=== PATIENT | male | born 1980 | race Two or more races ===

== ENCOUNTER 2020-04-27 08:13 | Emergency (ER) | payer OTHER, SELFPAY ==
[2020-04-27 09:41] VITALS: BP 126/78; PULSE 75; RESP 16; TEMP 36.8; O2SAT 97; BMI 35.4
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
== END 2020-04-27 10:54 | disposition home or self-care (01) ==
PROVIDERS: Emergency Provider Emergency Medicine Emergency Medical Services; PCP Internal Medicine
DX: M25.512 Pain in left shoulder (principal); M25.532 Pain in left wrist; M79.10 Myalgia, unspecified site
CPT/HCPCS: 73000; 73030; 73110; 99283

== ENCOUNTER 2020-04-29 11:31 | Outpatient (REF) | payer OTHER, SELFPAY ==
--- NOTE | 2020-04-29 11:42 | XR_ITS ---
EXAMINATION: XR CERVICAL SPINE CLINICAL INFORMATION: Cervicalgia COMPARISON: None TECHNIQUE: 4 views of cervical spine FINDINGS: No abnormal prevertebral soft tissue swelling is seen. No acute cervical spine fracture is noted. Disc spaces are maintained. There is loss of normal cervical spine lordosis. XR/XR cervical spine 4V IMPRESSION: No significant abnormality of the cervical spine identified.
== END 2020-04-29 11:32 | disposition home or self-care (01) ==
LOC: HO.XRAY 11:31
PROVIDERS: PCP Internal Medicine; Visit Provider Internal Medicine
DX: M54.2 Cervicalgia (principal)
CPT/HCPCS: 72050

== ENCOUNTER 2020-06-15 07:52 | Outpatient (REF) | payer OTHER, SELFPAY ==
--- NOTE | 2020-06-15 08:20 | ECG_ITS ---
Test Reason : PHYSICAL Blood Pressure : / mmHG Vent. Rate : 074 BPM Atrial Rate : 074 BPM P-R Int : 128 ms QRS Dur : 084 ms QT Int : 386 ms P-R-T Axes : 006 020 024 degrees QTc Int : 428 ms Normal sinus rhythm Normal ECG When compared with ECG of 15-OCT-2018 07:59, No significant change was found Referred By: Chika Bingham Electronically Signed By:SHAMEKA THOMASON
[2020-06-15 08:48] LABS: MANUAL DIFF FLAG NO
[2020-06-15 08:50] LABS: Basophils Percent Auto 0.3 % (0-2); Eosinophils Absolute Auto 0.1 X10*3/uL (0.0-0.4); Eosinophils Percent Auto 1.8 % (0-4); Hematocrit 39.7 % (42-52); Hemoglobin 12.4 g/dl (14.0-18.0); Imm Gran Abs Auto 0.03 X10*3/uL (0.00-0.03); Imm Gran Pct Auto 0.4 % (0.0-0.4); Lymphocytes Absolute Auto 1.9 X10*3/uL (1.2-4.9); Lymphocytes Percent Auto 24.4 % (20-40); Mean Corpuscular HGB Conc 31.2 g/dl (31.0-36.0); Mean Corpuscular Hemoglobin 27.2 pg (27.0-33.0); Mean Corpuscular Volume 87.1 fL (80-98); Mean Platelet Volume 10.2 fL (9.4-12.4); Monocytes Absolute Auto 0.4 X10*3/uL (0.1-1.2); Monocytes Percent Auto 5.3 % (2-11); Neutrophils Absolute Auto 5.1 X10*3/uL (2.0-8.3); Neutrophils Percent Auto 67.8 % (45-73); Platelet Count 284 X10*3/uL (160-400); Red Blood Count 4.56 X10*6/uL (4.60-5.80); Red Cell Distribution Width 14.3 % (11.0-16.0); White Blood Count 7.6 X10*3/uL (4.8-10.8)
[2020-06-15 09:08] LABS: Estimated Average Glucose 120 mg/dL; Hemoglobin A1c % 5.8 %
[2020-06-15 09:20] LABS: Alanine Aminotransferase 19 U/L (0-40); Albumin Level 4.2 g/dL (3.5-5.0); Alkaline Phosphatase 111 U/L (39-117); Anion Gap 12 (12-20); Aspartate Amino Transferase 15 U/L (5-37); Bilirubin Total 0.5 mg/dL (0.0-1.0); Blood Urea Nitrogen 12 mg/dL (9-16); Calcium 8.9 mg/dL (8.4-10.2); Carbon Dioxide 29 mmol/L (22-29); Chloride 105 mmol/L (96-108); Estimated Glomerular Filt Rate > 60; Glucose Fasting 120 mg/dL (60-99); Potassium 4.4 mmol/L (3.3-5.1); Sodium 142 mmol/L (135-145); Total Protein 7.3 g/dL (6.5-8.0)
[2020-06-15 09:44] LABS: TSH reflex Free T4 1.23 uIU/mL (0.32-4.0)
== END 2020-06-15 07:53 | disposition home or self-care (01) ==
LOC: HO.LAB 07:52
PROVIDERS: PCP Internal Medicine; Visit Provider Nurse Practitioner Family
DX: Z00.00 Encounter for general adult medical examination without abnormal findings (principal)
CPT/HCPCS: 36415; 80053; 83036; 84443; 85025; 93005

== ENCOUNTER 2020-06-16 18:36 | Outpatient (REF) | payer OTHER, SELFPAY | END 2020-06-16 18:37 | disposition home or self-care (01) | LOC: HO.MRI 18:36 | PROVIDERS: Visit Provider Internal Medicine | DX: Z13.89 Encounter for screening for other disorder (principal) ==

== ENCOUNTER → 2020-06-29 08:49 | Outpatient (BNVA) | payer OTHER, SELFPAY | PROVIDERS: Visit Provider Orthopaedic Surgery | DX: S49.91XA Unspecified injury of right shoulder and upper arm, initial encounter (principal) | CPT/HCPCS: 99202 ==

== ENCOUNTER → 2020-06-30 10:16 | Outpatient (BNVA) | payer OTHER, SELFPAY | PROVIDERS: PCP Internal Medicine; Visit Provider Nurse Practitioner ==

== ENCOUNTER 2020-11-11 08:52 | Outpatient (REF) | payer OTHER, SELFPAY ==
--- NOTE | ~2020-11-11 | XR_ITS ---
EXAMINATION: XR CHEST CLINICAL INFORMATION: History of asthma COMPARISON: Chest x-ray on 03/30/2019 TECHNIQUE: 2 views of the chest were obtained. FINDINGS: The cardiac silhouette is normal. There is mild diffuse bronchial wall thickening. There are no areas of consolidation. There are no pleural effusions or pneumothoraces. The bones and soft tissues are unremarkable for the patient's age. XR/XR chest 2V IMPRESSION: Bronchial wall thickening may be infectious and/or inflammatory in etiology.
[2020-11-11 10:01] LABS: MANUAL DIFF FLAG NO
[2020-11-11 10:12] LABS: Basophils Percent Auto 0.3 % (0-2); Eosinophils Absolute Auto 0.1 X10*3/uL (0.0-0.4); Eosinophils Percent Auto 1.5 % (0-4); Hematocrit 40.2 % (42-52); Hemoglobin 12.6 g/dl (14.0-18.0); Imm Gran Abs Auto 0.01 X10*3/uL (0.00-0.03); Imm Gran Pct Auto 0.1 % (0.0-0.4); Lymphocytes Percent Auto 29.3 % (20-40); Mean Corpuscular HGB Conc 31.3 g/dl (31.0-36.0); Mean Corpuscular Volume 86.1 fL (80-98); Mean Platelet Volume 10.6 fL (9.4-12.4); Monocytes Absolute Auto 0.3 X10*3/uL (0.1-1.2); Monocytes Percent Auto 4.6 % (2-11); Neutrophils Absolute Auto 4.3 X10*3/uL (2.0-8.3); Neutrophils Percent Auto 64.2 % (45-73); Platelet Count 298 X10*3/uL (160-400); Red Blood Count 4.67 X10*6/uL (4.60-5.80); White Blood Count 6.8 X10*3/uL (4.8-10.8)
== END 2020-11-11 08:53 | disposition home or self-care (01) ==
LOC: HO.LAB 08:52
PROVIDERS: PCP Internal Medicine; Visit Provider Internal Medicine Pulmonary Disease
DX: J45.909 Unspecified asthma, uncomplicated (principal); Z91.09 Other allergy status, other than to drugs and biological substances
CPT/HCPCS: 36415; 71046; 82785; 85025; 86003; 99202

== ENCOUNTER 2020-11-18 08:55 | Outpatient (REF) | payer OTHER, SELFPAY ==
--- NOTE | 2020-11-18 17:35 | PFT_ITS ---
FLOWS: FEV1 64% of predicted at 2.62 L. FVC 67% of predicted at 3.40 L. FEV1 to FVC ratio of 0.77. No bronchodilator testing was performed as the patient used his albuterol approximately 2 hours prior to the test. LUNG VOLUMES: Total lung capacity 73% of predicted at 4.95 L. Residual volume 96% of predicted at 1.74 L. Slow vital capacity 64% of predicted at 3.20 L. Expiratory reserve volume 21% of predicted at 0.33 L. Diffusion capacity is normal. IMPRESSION: Moderate restrictive ventilatory defect. No bronchodilator testing was performed as patient has had albuterol 2 hours prior to the testing. Decreased expiratory reserve volume suggests extrathoracic restriction likely secondary to abdominal obesity. MD MIREYA Zimmerman/MODL / [id number]
== END 2020-11-18 08:56 | disposition home or self-care (01) ==
LOC: HO.RESP 08:55
PROVIDERS: PCP Internal Medicine; Visit Provider Internal Medicine Pulmonary Disease
DX: J45.909 Unspecified asthma, uncomplicated (principal)
CPT/HCPCS: 94010; 94727; 94729

== ENCOUNTER → 2020-12-17 15:30 | Outpatient (BNVA) | payer OTHER, SELFPAY | PROVIDERS: PCP Internal Medicine; Visit Provider Internal Medicine Pulmonary Disease | DX: J45.40 Moderate persistent asthma, uncomplicated (principal); I10 Essential (primary) hypertension; R73.02 Impaired glucose tolerance (oral); Z91.018 Allergy to other foods; Z91.09 Other allergy status, other than to drugs and biological substances | CPT/HCPCS: 99212 ==

== ENCOUNTER → 2021-01-27 08:59 | Outpatient (BNVA) | payer OTHER, SELFPAY | PROVIDERS: PCP Internal Medicine; Visit Provider Internal Medicine Pulmonary Disease | DX: J45.909 Unspecified asthma, uncomplicated (principal); Z91.09 Other allergy status, other than to drugs and biological substances | CPT/HCPCS: 99212 ==

== ENCOUNTER 2021-02-17 12:58 | Outpatient (REF) | payer OTHER, SELFPAY ==
--- NOTE | ~2021-02-17 | MM_ITS ---
EXAMINATION: MM DIAGNOSTIC DIGITAL BREAST TOMOSYNTHESIS, BILATERAL US DIAGNOSTIC ULTRASOUND BREAST, BILATERAL CLINICAL INFORMATION: Bilateral pain periareolar left 3:00, right 9:00. Male age 40. No prior breast imaging. COMPARISON: None. TECHNIQUE: Digital breast tomosynthesis is performed in both the craniocaudal and mediolateral oblique views along with computer-aided detection (CAD). Synthesized 2D images are generated from the tomosynthesis. Ultrasound of both breasts is targeted to the retroareolar and periareolar regions. Grayscale imaging and color Doppler are performed without and with harmonics. FINDINGS: There are scattered areas of fibroglandular density (ACR BI-RADS breast composition Category b). There is bilateral symmetric moderate retroareolar gynecomastia pattern. No underlying mass or architectural abnormality. No abnormal calcifications. The axilla are unremarkable. No skin thickening or retraction. No coarsening of the stromal markings. Ultrasound of each breast demonstrates no cystic or solid mass or architectural abnormality. No skin thickening or edema tracking in soft tissue planes. Results are discussed with the patient at time of visit using an rides supervisor. MM/MM tomosynthesis diagnostic BI IMPRESSION: Bilateral moderate gynecomastia. ASSESSMENT: BI-RADS 2: Benign RECOMMENDATION: Patient should be managed based on the clinical impression as needed. If clinically indicated, further evaluation may be considered with surgical consult. Decision to proceed with biopsy should be based on clinical grounds and degree of clinical concern.
== END 2021-02-17 12:59 | disposition home or self-care (01) ==
LOC: HO.MAMMO 12:58
PROVIDERS: Visit Provider Internal Medicine
DX: N64.4 Mastodynia (principal)
CPT/HCPCS: 76642; 77062; 77066

== ENCOUNTER → 2021-02-25 09:28 | Outpatient (BNVA) | payer OTHER, SELFPAY | PROVIDERS: PCP Internal Medicine; Referring Provider Internal Medicine; Visit Provider Nurse Practitioner | DX: K59.04 Chronic idiopathic constipation (principal); K21.9 Gastro-esophageal reflux disease without esophagitis; R11.0 Nausea | CPT/HCPCS: 99212 ==

== ENCOUNTER 2021-04-20 09:06 | Outpatient (REF) | payer OTHER, SELFPAY ==
[2021-04-20 10:35] LABS: COVID-19 Test Negative (Negative); IDNOW Serial# 16C4AD1C
== END 2021-04-20 09:07 | disposition home or self-care (01) ==
LOC: HO.LAB 09:06
PROVIDERS: Visit Provider Internal Medicine
DX: Z20.822 Contact with and (suspected) exposure to COVID-19 (principal)
CPT/HCPCS: 87635; C9803

== ENCOUNTER 2021-04-22 12:43 | Emergency (ER) | payer OTHER, SELFPAY ==
[2021-04-22 14:35] VITALS: BP 118/60; PULSE 80; RESP 18; TEMP 36.8; O2SAT 98; BMI 41.3
[2021-04-22 14:57] LABS: COVID-19 Test Negative (Negative); IDNOW Serial# 08D9AD1C
--- NOTE | 2021-04-22 15:36 | ED.URI ---
HPI - URI/Sore Throat General Chief Complaint: Upper Respiratory Symptoms Stated Complaint: covid symptoms/ exposed Time Seen by Provider: 04/22/21 15:32 Source: patient Mode of arrival: ambulatory Limitations: no limitations History of Present Illness HPI Narrative: Patient comes to the emergency room complaining of body aches and headache since yesterday the patient denies fever, no chills, no cough. Patient states that he has not taking any Tylenol or ibuprofen. The patient reports no fever chills Related Data Home Medications Medication Instructions Recorded Confirmed cetirizine 10 mg tablet 10 mg PO DAILY 04/29/20 02/25/21 hydrocortisone valerate 0.2 % appl TOPICAL BID 06/30/20 02/25/21 topical cream fluticasone 250 mcg-salmeterol 50 1 inh INHALATION BID 02/25/21 02/25/21 mcg/dose blistr powdr for inhalation (Advair Diskus) Previous Rx's Medication Instructions Recorded acetaminophen 500 mg tablet 500 mg PO Q6H PRN #20 tab 04/27/20 (Tylenol Extra Strength) lidocaine 5 % topical patch 1 patch TOPICAL DAILY PRN #30 ea 04/27/20 (Lidoderm) MDD remove after 12 hours albuterol sulfate 90 mcg/actuation 2 puff INHALATION Q6H PRN 30 Days 07/08/20 aerosol inhaler (ProAir HFA) #8.5 g ibuprofen 800 mg tablet 800 mg PO Q8H PRN #90 tab 11/14/20 fluticasone propionate 230 2 puff INHALATION BID 30 Days #1 ea 01/27/21 mcg-salmeterol 21 mcg/actuation HFA inhaler (Advair HFA) pantoprazole 40 mg tablet,delayed 40 mg PO BID 30 Days #60 tab 02/25/21 release (Protonix) doxepin 10 mg capsule 10 mg PO BEDTIME 90 Days #90 cap 03/29/21 ibuprofen 600 mg tablet 600 mg PO TID PRN #20 tab 04/22/21 Allergies Allergy/AdvReac Type Severity Reaction Status Date / Time almond [ALMOND] Allergy Mild RASH Verified 04/22/21 14:34 Review of Systems Review of Systems: Constitutional : No Weight loss, No Fever, No Chills, No Night Sweats, No Fatigue, complaining of generalized malaise ENT/Mouth : No Hearing loss, No Ear Pain, No Nasal Congestion, No Sinus Pain, No Hoarseness, complaining of mild sore throat, No Rhinorrhea, No Swallowing Difficulty Eyes: No Eye Pain, No Swelling, No Redness, No Foreign Body, No Discharge, No Vision Changes Cardiovascular : No Chest Pain, No SOB, No Dyspnea on Exertion, No Orthopnea, No Edema, No Palpitations Respiratory : No Cough, No Sputum, No Wheezing, No Smoke Exposure, No Dyspnea Gastrointestinal : No Nausea, No Vomiting, No Diarrhea, No Constipation, No abdominal Pain, No Hematochezia, No Melena Genitourinary : no irregular bleeding, No Dysuria, No Urinary Frequency, No Hematuria, No Urinary Incontinence, No Urgency, No Flank Pain, No Urinary Flow Changes, No Hesitancy Musculoskeletal : No joint pain, No Myalgias, No Joint Swelling Skin : No Skin Lesions, No rash Neuro : No Weakness, No Numbness, No Paresthesias, No Loss of Consciousness, No Dizziness, complaining of mild Headache Psych : No Anxiety/Panic, No Depression, No SI/HI/AH/VH, No Social Issues, Heme/Lymph: No Bruising, No Bleeding,No Lymphadenopathy Endocrine : No Polyuria, No Polydipsia, No Temperature Intolerance [facility] Past Medical History Medical History Asthma Breast pain, left Breast pain, right Essential hypertension Impaired glucose tolerance Left shoulder pain Mild asthma Moderate asthma Neck pain Surgical History History of inguinal hernia repair Family History Family History Father Diabetes Mother Hypothyroid Maternal Aunt Skin cancer Sister No problems noted. 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 Oriented X3. No acute distress. Well-appearing Eyes: Pupils equal, round and reactive to light. ENT: Pharynx normal. Neck: Normal inspection. Neck supple. No lymph nodes noted. No crepitus CVS: Normal heart rate and rhythm. Pulses normal. Normal S1 and S2 Respiratory: No respiratory distress. Breath sounds normal. No Wheezing. No rales Abdomen: Soft and nontender. No rigidity. No distention. good BS x4 Skin: Skin warm and dry. Normal skin color. Normal skin turgor. Extremities: No lower extremity edema. No Lacerations. No Rash Neuro: Oriented X 3. No motor deficit. No sensory deficit. Moving all extermities. No slurred speech. Course Course Course Narrative: Patient is well-appearing, no fever, oxygen saturation normal on room air. Patient tested negative for COVID-19 MDM - URI/Sore Throat Lab Data Labs: Lab Results 04/22/21 Range/Units 14:30 COVID-19 (ESTER) Negative (Negative) COVID-19 Clin Com See Note Discharge Plan Discharge Clinical Impression: Acute viral syndrome Patient Disposition: Home, Self-Care Instructions: Viral Syndrome (ED) Additional Instructions: Please follow-up with your primary care physician tomorrow. If you have any worsening or new symptoms, please return to the emergency room or call 911 Prescriptions: New ibuprofen 600 mg tablet 600 mg PO TID PRN (Reason: fever or pain) Qty: 20 RF: 0 No Action ibuprofen 800 mg tablet 800 mg PO Q8H PRN (Reason: for pain) Qty: 90 RF: 1 doxepin 10 mg capsule 10 mg PO BEDTIME 90 Days Qty: 90 RF: 1 acetaminophen [Tylenol Extra Strength] 500 mg tablet 500 mg PO Q6H PRN (Reason: pain or fever) Qty: 20 RF: 0 lidocaine [Lidoderm] 5 % adhesive patch,medicated 1 patch topical DAILY MDD remove after 12 hours PRN (Reason: pain) Qty: 30 RF: 0 cetirizine 10 mg tablet 10 mg PO DAILY RF: 0 albuterol sulfate [ProAir HFA] 90 mcg/actuation HFA aerosol inhaler 2 puff inhalation Q6H PRN (Reason: shortness of breath or wheezing) 30 Days Qty: 8.5 RF: 6 hydrocortisone valerate 0.2 % cream topical BID RF: 0 Advair HFA 230-21 mcg/actuation HFA aerosol inhaler 2 puff inhalation BID 30 Days Qty: 1 RF: 6 fluticasone propion-salmeterol [Advair Diskus] 250-50 mcg/dose blister with device 1 inh inhalation BID RF: 0 pantoprazole [Protonix] 40 mg tablet,delayed release (DR/EC) 40 mg PO BID 30 Days Qty: 60 RF: 6
== END 2021-04-22 15:48 | disposition home or self-care (01) ==
LOC: HO.ED 15:45
PROVIDERS: Emergency Provider Emergency Medicine; PCP Internal Medicine
DX: B34.9 Viral infection, unspecified (principal); Z20.822 Contact with and (suspected) exposure to COVID-19; R51.9 Headache, unspecified
CPT/HCPCS: 87635; 99283

== ENCOUNTER 2021-04-24 07:33 | Emergency (ER) | payer OTHER, SELFPAY ==
--- NOTE | ~2021-04-24 | XR_ITS ---
EXAMINATION: XR CHEST CLINICAL INFORMATION: Cough and shortness of breath. Positive Covid. COMPARISON: Chest x-ray 11/11/2020 TECHNIQUE: 2 views of the chest were obtained. FINDINGS: Cardiac silhouette is normal in size. The lungs are adequately aerated. Mild diffuse bronchial wall thickening is again noted. There is no gross lobar consolidation. No pleural effusion or pneumothorax. No acute osseous abnormality. XR/XR chest 2V IMPRESSION: Stable chronic bronchial wall thickening without lobar consolidation.
[2021-04-24 07:46] VITALS: BP 138/83; PULSE 100; RESP 18; TEMP 36.1; O2SAT 98; BMI 38.4
[2021-04-24 08:31] LABS: COVID-19 Test Positive (Negative)
--- NOTE | 2021-04-24 09:30 | ED_ITS ---
HPI - URI/Sore Throat General Chief Complaint: Upper Respiratory Symptoms Stated Complaint: Asthma/cough Time Seen by Provider: 04/24/21 09:14 Source: patient Mode of arrival: ambulatory Limitations: language barrier (Angolan-speaking) History of Present Illness HPI Narrative: 40-year-old male presenting to the ED with COVID like symptoms for the past 2 days worse today. Reports that his and son tested positive for the past few days for COVID and he has similar symptoms. He reports his symptoms are subjective fevers, chills, sweats, intermittent headache, nasal congestion/rhinorrhea, sore throat, dry cough and shortness of breath. He denies recent travel. He denies any measured fevers, dizziness, neck pain/stiffness, trouble swallowing or breathing, dyspnea on exertion, orthopnea, chest pain, palpitations, nausea/vomiting/diarrhea or constipation, abdominal pain, rashes, lower extremity edema or calf tenderness, dysuria, hematuria or any other symptoms complaints or concerns at this time. MD elicited complaint: fever, cough, sore throat, rhinorrhea and nasal congestion Onset (ago): day(s) (2) Consistency: constant and progressively worsening Severity: mild Able to tolerate fluids by mouth: Yes Exacerbating factors: swallowing and deep breaths Relieving factors: nothing Context: sick contacts ( and son tested positive a few days ago they have similar symptoms) Associated symptoms: fever, chills, myalgias, headache, rhinorrhea, nasal congestion, sore throat, cough and shortness of breath Treatments prior to arrival: none Related Data Home Medications Medication Instructions Recorded Confirmed cetirizine 10 mg tablet 10 mg PO DAILY 04/29/20 02/25/21 hydrocortisone valerate 0.2 % appl TOPICAL BID 06/30/20 02/25/21 topical cream fluticasone 250 mcg-salmeterol 50 1 inh INHALATION BID 02/25/21 02/25/21 mcg/dose blistr powdr for inhalation (Advair Diskus) Previous Rx's Medication Instructions Recorded acetaminophen 500 mg tablet 500 mg PO Q6H PRN #20 tab 04/27/20 (Tylenol Extra Strength) lidocaine 5 % topical patch 1 patch TOPICAL DAILY PRN #30 ea 04/27/20 (Lidoderm) MDD remove after 12 hours albuterol sulfate 90 mcg/actuation 2 puff INHALATION Q6H PRN 30 Days 07/08/20 aerosol inhaler (ProAir HFA) #8.5 g ibuprofen 800 mg tablet 800 mg PO Q8H PRN #90 tab 11/14/20 fluticasone propionate 230 2 puff INHALATION BID 30 Days #1 ea 01/27/21 mcg-salmeterol 21 mcg/actuation HFA inhaler (Advair HFA) pantoprazole 40 mg tablet,delayed 40 mg PO BID 30 Days #60 tab 02/25/21 release (Protonix) doxepin 10 mg capsule 10 mg PO BEDTIME 90 Days #90 cap 03/29/21 ibuprofen 600 mg tablet 600 mg PO TID PRN #20 tab 04/22/21 albuterol sulfate 90 mcg/actuation 1 inh INHALATION QID PRN #8.5 g 04/24/21 aerosol inhaler azithromycin 250 mg tablet See Rx Instructions .ROUTE 04/24/21 .COMPLEX #6 tab codeine 10 mg-guaifenesin 100 mg/5 5 ml PO Q6H PRN #120 ml 04/24/21 mL oral liquid (Guaifenesin AC) cyclobenzaprine 10 mg tablet 10 mg PO Q8H PRN #14 tab 04/24/21 prednisone 20 mg tablet 40 mg PO DAILY 5 Days #10 tab 04/24/21 Allergies Allergy/AdvReac Type Severity Reaction Status Date / Time almond [ALMOND] Allergy Mild RASH Verified 04/22/21 14:34 Review of Systems Review of Systems: Constitutional : Positive subjective fever/chills/fatigue/malaise/night sweats, No Weight loss ENT/Mouth : Positive sore throat/nasal congestion/rhinorrhea, No Hearing loss, No Ear Pain, No Sinus Pain, No Hoarseness, No Swallowing Difficulty Eyes: No Eye Pain, No Swelling, No Redness, No Foreign Body, No Discharge, No Vision Changes Cardiovascular : Positive shortness of breath, No Chest Pain, No Dyspnea on Exertion, No Orthopnea, No Edema, No Palpitations Respiratory : Positive cough, No Sputum, No Wheezing Gastrointestinal : No Nausea, No Vomiting, No Diarrhea, No Constipation, No abdominal Pain, No Hematochezia, No Melena Genitourinary : no irregular bleeding, No Dysuria, No Urinary Frequency, No Hematuria, No Urinary Incontinence, No Urgency, No Flank Pain, No Urinary Flow Changes, No Hesitancy Musculoskeletal : No joint pain, positive Myalgias, No Joint Swelling Skin : No Skin Lesions, No rash Neuro : No Weakness, No Numbness, No Paresthesias, No Loss of Consciousness, No Dizziness, No Headache Psych : No Anxiety/Panic, No Depression, No SI/HI/AH/VH, No Social Issues, Heme/Lymph: No Bruising, No Bleeding,No Lymphadenopathy Endocrine : No Polyuria, No Polydipsia, No Temperature Intolerance Yes all other systems are reviewed and are negative [facility] Past Medical History Attestation statement: The following information was validated with the patient. Medical History Asthma Breast pain, left Breast pain, right Essential hypertension Impaired glucose tolerance Left shoulder pain Mild asthma Moderate asthma Neck pain Surgical History History of inguinal hernia repair Family History Family History Father Diabetes Mother Hypothyroid Maternal Aunt Skin cancer Sister No problems noted. 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 Blood pressure normal. Heart rate normal. Respiration rate normal. Temperature normal. Oxygen saturation normal. Appearance: Alert. Oriented X3. No acute distress. Head: Normal external exam. Normocephalic. Atraumatic. Eyes: PERRLA. EOMI. Conjunctiva and sclera normal. Eyelids normal. ENT: EAC normal. TM's Normal. Pharynx normal. Uvula midline. Moist mucous membranes. No trismus noted. No drooling noted. No muffled voice noted. Neck: Normal inspection. Neck supple. FROM. No adenopathy. Thyroid Normal. No meningeal signs. No neck mass noted. CVS: Normal heart rate and rhythm. Heart sound normal. Pulses normal throughout. No murmurs/rales/gallops. Respiratory: No respiratory distress. Painless inspiration. Breath sounds normal. No wheezes/rales/rhonchi noted. Chest nontender. No accessory muscle usage noted or decreased air movement noted. Abdomen: Soft and nontender. Bowel sounds normal in all 4 quadrants. No distention noted. No organomegaly noted. No visible injury noted. Back: No CVA tenderness. Full range of motion noted. No rashes/lesion/induration/fluctuance or signs of infection noted. Skin: Skin warm and dry. Normal skin color. Normal skin turgor. No rashes/lesions/lacerations noted. Extremities: No lower extremity edema. No calf tenderness is noted. Extremities exhibit normal range of motion. Extremities nontender. Neuro: Oriented X 3. No motor deficit. No sensory deficit. Reflexes normal. Normal steady gait. No focal neuro deficits noted. Vascular: + radial pulses/+ 2 distal pedal pulses/+2 dorsalis pedis b/l. Normal cap refill. No cyanosis noted to upper extremity nails and lower extremity toes nails. Course Course Course Narrative: 40-year-old male presenting to the ED with COVID like symptoms for the past 2 days worse today. Reports that his and son tested positive for the past few days for COVID and he has similar symptoms. He reports his symptoms are subjective fevers, chills, sweats, intermittent headache, nasal congestion/rhinorrhea, sore throat, dry cough and shortness of breath. He denies recent travel. He denies any measured fevers, dizziness, neck pain/stiffness, trouble swallowing or breathing, dyspnea on exertion, orthopnea, chest pain, palpitations, nausea/vomiting/diarrhea or constipation, abdominal pain, rashes, lower extremity edema or calf tenderness, dysuria, hematuria or any other symptoms complaints or concerns at this time. Patient positive for COVID. On exam patient is alert oriented x3. Not in any acute distress. Lungs are clear to auscultation. CV RRR. Abdomen is soft and nontender. No lower extremity edema or calf tenderness is noted. Vital signs are stable within normal limits O2 saturation 98% on room air. Will obtain a chest x-ray is negative will DC home with symptomatic treatment instructions to self isolate per CDC guidelines and to return if any new or worsening symptoms to monitor his oxygen levels. Patient and at bedside understand agree this plan. MDM - URI/Sore Throat Medical Records Attestation: I reviewed the patient's medical records. Lab Data Attestation: I reviewed the patient's lab results. Labs: Lab Results 04/24/21 Range/Units 08:05 COVID-19 (ESTER) Positive A (Negative) COVID-19 Clin Com See Note Imaging Data Chest x-ray: Attestation: I personally reviewed and interpreted this imaging study as follows: Radiologist's impression: FINDINGS: Cardiac silhouette is normal in size. The lungs are adequately aerated. Mild diffuse bronchial wall thickening is again noted. There is no gross lobar consolidation. No pleural effusion or pneumothorax. No acute osseous abnormality. XR/XR chest 2V IMPRESSION: Stable chronic bronchial wall thickening without lobar consolidation. Discharge Plan Discharge Clinical Impression: COVID-19 Patient Disposition: Home, Self-Care Instructions: COVID-19 (Coronavirus Disease 2019) (ED) Additional Instructions: Please follow CDC guidelines for quarantine restrictions Prescriptions: New albuterol sulfate 90 mcg/actuation HFA aerosol inhaler 1 inh inhalation QID PRN (Reason: shortness of breath or wheezing) Qty: 8.5 RF: 0 cyclobenzaprine 10 mg tablet 10 mg PO Q8H PRN (Reason: Muscle spasm) Qty: 14 RF: 0 azithromycin 250 mg tablet See Rx Instructions .ROUTE .COMPLEX Qty: 6 RF: 0 codeine-guaifenesin [Guaifenesin AC] 10-100 mg/5 mL liquid 5 ml PO Q6H PRN (Reason: cold symptoms) Qty: 120 RF: 0 prednisone 20 mg tablet 40 mg PO DAILY 5 Days Qty: 10 RF: 0 No Action ibuprofen 800 mg tablet 800 mg PO Q8H PRN (Reason: for pain) Qty: 90 RF: 1 doxepin 10 mg capsule 10 mg PO BEDTIME 90 Days Qty: 90 RF: 1 acetaminophen [Tylenol Extra Strength] 500 mg tablet 500 mg PO Q6H PRN (Reason: pain or fever) Qty: 20 RF: 0 lidocaine [Lidoderm] 5 % adhesive patch,medicated 1 patch topical DAILY MDD remove after 12 hours PRN (Reason: pain) Qty: 30 RF: 0 ibuprofen 600 mg tablet 600 mg PO TID PRN (Reason: fever or pain) Qty: 20 RF: 0 cetirizine 10 mg tablet 10 mg PO DAILY RF: 0 albuterol sulfate [ProAir HFA] 90 mcg/actuation HFA aerosol inhaler 2 puff inhalation Q6H PRN (Reason: shortness of breath or wheezing) 30 Days Qty: 8.5 RF: 6 hydrocortisone valerate 0.2 % cream topical BID RF: 0 Advair HFA 230-21 mcg/actuation HFA aerosol inhaler 2 puff inhalation BID 30 Days Qty: 1 RF: 6 fluticasone propion-salmeterol [Advair Diskus] 250-50 mcg/dose blister with device 1 inh inhalation BID RF: 0 pantoprazole [Protonix] 40 mg tablet,delayed release (DR/EC) 40 mg PO BID 30 Days Qty: 60 RF: 6 Referrals: Shannon Rosario MD [Primary Care Provider] - 2 days Stand Alone Forms: Work/School Release Print Language: Angolan
[2021-04-24] MEDS: Albuterol Sulfate 90 MCG 8 GM INHALER 2 PUFF INHALE (10:22)
== END 2021-04-24 10:36 | disposition home or self-care (01) ==
PROVIDERS: Emergency Provider Internal Medicine; PCP Internal Medicine
DX: U07.1 COVID-19 (principal); J45.909 Unspecified asthma, uncomplicated; I10 Essential (primary) hypertension
CPT/HCPCS: 71046; 87635; 94640; 99283; 99284

== ENCOUNTER 2021-05-02 08:13 | Outpatient (REF) | payer OTHER, SELFPAY ==
[2021-05-02 11:30] LABS: Binax Now Covid-19 Ag Positive (Negative)
[2021-05-02 11:31] LABS: Binax Internal Control QC Valid
== END 2021-05-02 08:14 | disposition home or self-care (01) ==
LOC: HO.LAB 08:13
PROVIDERS: Visit Provider Internal Medicine
DX: Z20.822 Contact with and (suspected) exposure to COVID-19 (principal)
CPT/HCPCS: C9803

== ENCOUNTER 2021-05-05 07:48 | Outpatient (REF) | payer OTHER, SELFPAY ==
[2021-05-05 08:12] LABS: COVID-19 Test Negative (Negative)
== END 2021-05-05 07:49 | disposition home or self-care (01) ==
LOC: HO.LAB 07:48
PROVIDERS: Visit Provider Internal Medicine
DX: Z20.822 Contact with and (suspected) exposure to COVID-19 (principal)
CPT/HCPCS: 87635; C9803

== ENCOUNTER → 2021-07-22 09:37 | Outpatient (BNVA) | payer OTHER, SELFPAY | PROVIDERS: PCP Internal Medicine; Visit Provider Internal Medicine Pulmonary Disease | DX: J45.909 Unspecified asthma, uncomplicated (principal); Z91.09 Other allergy status, other than to drugs and biological substances | CPT/HCPCS: 99212 ==

== ENCOUNTER 2021-08-11 09:41 | Outpatient (REF) | payer OTHER, SELFPAY ==
--- NOTE | 2021-08-11 09:44 | EMG_ITS ---
Bilateral median and ulnar motor and sensory studies were performed, bilateral radial sensory studies were performed and paraspinal muscles were tested with a needle. IMPRESSION: 1. [id number] bilateral median neuropathy across carpal tunnel. 2. Left Ron-Vince anastomosis, a normal variant. MD HARINDER Amin/LATHAL / [id number]
== END 2021-08-11 09:42 | disposition home or self-care (01) ==
LOC: HO.NEURO 09:41
PROVIDERS: PCP Internal Medicine; Visit Provider Internal Medicine
DX: R20.0 Anesthesia of skin (principal)
CPT/HCPCS: 95886; 95909; 95911

== ENCOUNTER 2021-08-29 14:59 | Outpatient (REF) | payer OTHER, SELFPAY ==
[2021-08-29 15:58] LABS: Influenza A PCR POSITIVE (Negative); Influenza B PCR NEGATIVE (Negative); Resp Syncy Virus RNA Qual PCR NEGATIVE (Negative); SARS COV2 PCR INHOUSE NEGATIVE (Negative)
== END 2021-08-29 15:00 | disposition home or self-care (01) ==
LOC: HO.LAB 14:59
PROVIDERS: PCP Internal Medicine; Visit Provider Nurse Practitioner Family
DX: R05.9 Cough, unspecified (principal); R09.89 Other specified symptoms and signs involving the circulatory and respiratory systems; R52 Pain, unspecified; Z20.822 Contact with and (suspected) exposure to COVID-19
CPT/HCPCS: 0241U

== ENCOUNTER 2021-10-11 06:23 | Outpatient (REF) | payer OTHER, SELFPAY ==
[2021-10-11 06:39] LABS: MANUAL DIFF FLAG NO
[2021-10-11 07:47] LABS: Basophils Percent Auto 0.3 % (0-2); Eosinophils Absolute Auto 0.1 X10*3/uL (0.0-0.4); Hematocrit 39.4 % (42.0-52.0); Hemoglobin 12.4 g/dl (14.0-18.0); Imm Gran Abs Auto 0.02 X10*3/uL (0.00-0.03); Imm Gran Pct Auto 0.2 % (0.0-0.4); Lymphocytes Absolute Auto 2.8 X10*3/uL (1.2-4.9); Lymphocytes Percent Auto 31.3 % (20-40); Mean Corpuscular HGB Conc 31.5 g/dl (31.0-36.0); Mean Corpuscular Volume 85.7 fL (80.0-98.0); Mean Platelet Volume 10.9 fL (9.4-12.4); Monocytes Absolute Auto 0.5 X10*3/uL (0.1-1.2); Neutrophils Absolute Auto 5.5 x10*3/uL (2.0-8.3); Neutrophils Percent Auto 61.2 % (45-73); Platelet Count 314 X10*3/uL (160-400); Red Cell Distribution Width 14.5 % (11.0-16.0)
[2021-10-11 08:41] LABS: Alanine Aminotransferase 24 U/L (0-40); Albumin Level 4.5 g/dL (3.5-5.0); Alkaline Phosphatase 112 U/L (39-117); Anion Gap 14 (12-20); Aspartate Amino Transferase 21 U/L (5-37); Bilirubin Total 0.4 mg/dL (0.0-1.0); Blood Urea Nitrogen 15 mg/dL (9-16); Calcium 9.4 mg/dL (8.4-10.2); Carbon Dioxide 26 mmol/L (22-29); Chloride 107 mmol/L (96-108); Cholesterol 144 mg/dL; Estimated Glomerular Filt Rate > 60; Glucose Fasting 95 mg/dL (60-99); HDL Cholesterol 49 mg/dL; LDL Cholesterol Calculated 81 mg/dl; Potassium 4.3 mmol/L (3.3-5.1); Sodium 143 mmol/L (135-145); Total Protein 7.9 g/dL (6.5-8.0); Triglycerides 72 mg/dL
[2021-10-16 13:42] LABS: Vitamin D 25-OH, D2 <4 ng/mL; Vitamin D 25-OH, D3 35 ng/mL; Vitamin D 25-OH, Total 35 ng/mL (30-100)
== END 2021-10-11 06:24 | disposition home or self-care (01) ==
LOC: HO.LAB 06:23
PROVIDERS: PCP Internal Medicine; Visit Provider Internal Medicine
DX: Z00.00 Encounter for general adult medical examination without abnormal findings (principal); E78.5 Hyperlipidemia, unspecified; D64.9 Anemia, unspecified; E55.9 Vitamin D deficiency, unspecified
CPT/HCPCS: 36415; 80053; 80061; 82306; 85025

== ENCOUNTER → 2022-01-20 09:58 | Outpatient (BNVA) | payer OTHER, SELFPAY | PROVIDERS: PCP Internal Medicine; Visit Provider Internal Medicine Pulmonary Disease | DX: J45.50 Severe persistent asthma, uncomplicated (principal); Z91.09 Other allergy status, other than to drugs and biological substances | CPT/HCPCS: 99212 ==

== ENCOUNTER → 2022-03-03 09:12 | Outpatient (BNVA) | payer OTHER, SELFPAY | PROVIDERS: PCP Internal Medicine; Referring Provider Internal Medicine; Visit Provider Nurse Practitioner | DX: K21.9 Gastro-esophageal reflux disease without esophagitis (principal); R11.0 Nausea | CPT/HCPCS: 99212 ==

== ENCOUNTER 2022-06-12 14:34 | Emergency (ER) | payer OTHER, SELFPAY ==
--- NOTE | ~2022-06-12 | XR_ITS ---
EXAMINATION: XR ANKLE, RIGHT CLINICAL INFORMATION: Fall pain COMPARISON: None TECHNIQUE: AP, lateral, and mortise views of the right ankle. FINDINGS: The bones and soft tissues are normal. No fracture. Alignment is anatomic. Joint spaces are maintained. No joint effusion. There is a small inferior calcaneal spur. XR/XR ankle RT min 3V IMPRESSION: No acute fracture or dislocation.
--- NOTE | ~2022-06-12 | XR_ITS ---
EXAMINATION: XR ANKLE, LEFT CLINICAL INFORMATION: Injury COMPARISON: None TECHNIQUE: AP, lateral, and mortise views of the left ankle. FINDINGS: The bones and soft tissues are normal. No fracture. Alignment is anatomic. Joint spaces are maintained. No joint effusion. XR/XR ankle LT min 3V IMPRESSION: No radiographic evidence of acute fracture.
[2022-06-12 14:46] VITALS: BP 133/53; PULSE 79; RESP 18; TEMP 36.9; O2SAT 97; BMI 39.5
--- NOTE | 2022-06-12 14:46 | ED_ITS ---
HPI - Extremity Injury (Lower) General Chief Complaint: Extremity Problem <DONNELL Salguero - Last Filed: 06/12/22 14:47> Stated Complaint: both feet inj at work <DONNELL Salguero - Last Filed: 06/12/22 14:47> Time Seen by Provider: 06/12/22 16:17 <DONNELL Salguero - Last Filed: 06/12/22 14:47> Source: patient and family ( at bedside) <DONNELL Dougherty Last Filed: 06/12/22 16:35> Mode of arrival: ambulatory <DONNELL Dougherty - Last Filed: 06/12/22 16:35> Limitations: language barrier (English-speaking) <DONNELL Dougherty Last Filed: 06/12/22 16:35> History of Present Illness HPI Narrative: 42-year-old male presenting to the ER with complaints of bilateral ankle pain and right foot pain near the heel since yesterday worse today. Reports that he had a twist injury to his left ankle tried to catch himself so he would not fall and tried to compensate with his right foot/ankle. He reports he did not actually fall. This occurred at work. He denies any paresthesias or any other symptoms complaints or concerns at this time. <DONNELL Dougherty - Last Filed: 06/12/22 16:35> MD complaint: ankle injury <DONNELL Dougherty - Last Filed: 06/12/22 16:35> Onset (ago): day(s) (Yesterday at work) <DONNELL Dougherty - Last Filed: 06/12/22 16:35> Injury: Bilateral: ankle <DONNELL Dougherty - Last Filed: 06/12/22 16:35> Type of Injury: other (Twist injury) <DONNELL Dougherty Last Filed: 06/12/22 16:35> Place: work <DONNELL Dougherty Last Filed: 06/12/22 16:35> Severity: mild <DONNELL Dougherty Last Filed: 06/12/22 16:35> Relieving factors: nothing <DONNELL Dougherty Last Filed: 06/12/22 16:35> Exacerbating factors: weight bearing, movement and palpation <DONNELL Dougherty - Last Filed: 06/12/22 16:35> Context: other (Twist injury near fall) <DONNELL Dougherty - Last Filed: 06/12/22 16:35> Associated symptoms: swelling and ambulatory <DONNELL Dougherty - Last Filed: 06/12/22 16:35> Other symptoms: none <DONNELL Dougherty - Last Filed: 06/12/22 16:35> Related Data Home Medications: Previous Rx's Medication Instructions Recorded ibuprofen 800 mg tablet 800 mg PO Q8H PRN for pain #90 tabs 11/14/20 albuterol sulfate 90 mcg/actuation 1 inh inhalation QID PRN shortness 04/24/21 aerosol inhaler of breath or wheezing #8.5 grams acetaminophen 500 mg tablet 500 - 1,000 mg PO Q6H PRN pain #30 08/29/21 tabs fluticasone propionate 230 2 puff inhalation BID 30 days #1 ea 10/03/21 mcg-salmeterol 21 mcg/actuation HFA inhaler (Advair HFA) cetirizine 10 mg tablet 10 mg PO DAILY 90 days #90 tabs 03/02/22 montelukast 10 mg tablet 10 mg PO BEDTIME 90 days #90 tabs 03/05/22 doxepin 10 mg capsule 10 mg PO BEDTIME 90 days #90 caps 04/30/22 hydrocortisone valerate 0.2 % 1 appl topical BID 2 weeks #45 04/30/22 topical cream grams pantoprazole 40 mg tablet,delayed 40 mg PO BID #180 tabs 05/16/22 release ibuprofen 800 mg tablet 800 mg PO Q8H PRN pain #14 tabs 06/12/22 <DONNELL Salguero - Last Filed: 06/12/22 14:47> Allergies/Adverse Reactions: Allergies Allergy/AdvReac Type Severity Reaction Status Date / Time almond [ALMOND] Allergy Mild RASH Verified 03/03/22 09:20 <DONNELL Slaguero - Last Filed: 06/12/22 14:47> Review of Systems Review of Systems: Constitutional : No Weight loss, No Fever, No Chills, No Night Sweats, No Fatigue, No Malaise ENT/Mouth : No Hearing loss, No Ear Pain, No Nasal Congestion, No Sinus Pain, No Hoarseness, No sore throat, No Rhinorrhea, No Swallowing Difficulty Eyes: No Eye Pain, No Swelling, No Redness, No Foreign Body, No Discharge, No Vision Changes Cardiovascular : No Chest Pain, No SOB, No Dyspnea on Exertion, No Orthopnea, No Edema, No Palpitations Respiratory : No Cough, No Sputum, No Wheezing, No Smoke Exposure, No Dyspnea Gastrointestinal : No Nausea, No Vomiting, No Diarrhea, No Constipation, No abdominal Pain, No Hematochezia, No Melena Genitourinary : no irregular bleeding, No Dysuria, No Urinary Frequency, No Hematuria, No Urinary Incontinence, No Urgency, No Flank Pain, No Urinary Flow Changes, No Hesitancy Musculoskeletal : + b/l ankle joint pain and right foot joint pain, No Myalgias, No Joint Swelling Skin : No Skin Lesions, No rash Neuro : No Weakness, No Numbness, No Paresthesias, No Loss of Consciousness, No Dizziness, No Headache Psych : No Anxiety/Panic, No Depression, No SI/HI/AH/VH, No Social Issues, Heme/Lymph: No Bruising, No Bleeding,No Lymphadenopathy Endocrine : No Polyuria, No Polydipsia, No Temperature Intolerance <DONNELL Dougherty - Last Filed: 06/12/22 16:35> Yes all other systems are reviewed and are negative <DONNELL Dougherty - Last Filed: 06/12/22 16:35> PMFSH Past Medical History Attestation statement: The following information was validated with the patient. <DONNELL Dougherty - Last Filed: 06/12/22 16:35> Source: old records reviewed, obtained from family and nursing notes reviewed <DONNELL Dougherty - Last Filed: 06/12/22 16:35> Medical History: Medical History Asthma Breast pain, left Breast pain, right Essential hypertension Impaired glucose tolerance Left shoulder pain Mild asthma Moderate asthma Neck pain Numbness of right hand Physical exam <DONNELL Salguero - Last Filed: 06/12/22 14:47> Surgical History: Surgical History History of inguinal hernia repair <DONNELL Salguero - Last Filed: 06/12/22 14:47> Family History Family History: Family History Father Diabetes Mother Hypothyroid Maternal Aunt Skin cancer Sister No problems noted. 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 Current occupational exposures/hazards: No Cognitive needs: No Hearing needs: No Vision needs: Yes <DONNELL Salguero - Last Filed: 06/12/22 14:47> Physical Exam Vital Signs: Vital Signs: Last Vital Signs Temp 98.5 F 06/12/22 14:46 Pulse 79 06/12/22 14:46 Resp 18 06/12/22 14:46 BP 133/53 L 06/12/22 14:46 Pulse Ox 97 06/12/22 14:46 O2 Del Method 06/12/22 14:46 BMI result Body Mass Index 39.5 <DONNELL Salguero - Last Filed: 06/12/22 14:47> Vital Signs: Last Vital Signs Temp 98.5 F 06/12/22 14:46 Pulse 79 06/12/22 14:46 Resp 18 06/12/22 14:46 BP 133/53 L 06/12/22 14:46 Pulse Ox 97 06/12/22 14:46 O2 Del Method 06/12/22 14:46 BMI result Body Mass Index 39.5 vital signs have been reviewed as normal and appeared to be correct. Blood pressure normal Heart rate normal. Respiration rate normal. Temperature normal. Oxygen saturation normal. <DONNELL Dougherty - Last Filed: 06/12/22 16:35> Appearance: Alert. Oriented X3. No acute distress. Head: Normal external exam. Normocephalic. Atraumatic. Eyes: PERRLA. EOMI. Conjunctiva and sclera normal. Eyelids normal. ENT: Pharynx normal. Uvula midline. Moist mucous membranes. Neck: Normal inspection. Neck supple. FROM. CVS: Normal heart rate and rhythm. Respiratory: No respiratory distress. Painless inspiration. Skin: Skin warm and dry. Normal skin color. Normal skin turgor. No rashes/lesions/lacerations noted. Extremities: Patient with tenderness palpation to the lateral malleolus of the left ankle and medial aspect of the right ankle and the heel aspect of the right foot. He has full range of motion of bilateral ankle and foot and toe joints. No lower extremity edema or calf tenderness noted. Otherwise all other extremities exhibit normal range of motion nontender. Neuro: Oriented X 3. No motor deficit. No sensory deficit. Reflexes normal. Normal steady gait. No focal neuro deficits noted. Vascular: + radial pulses/+ 2 distal pedal pulses/+2 dorsalis pedis b/l. Normal cap refill. No cyanosis noted to upper extremity nails and lower extremity toes nails. <DONNELL Dougherty - Last Filed: 06/12/22 16:35> Course Course Course Narrative: RME - 42 yo English speaking male presents to the ER with bilateral ankle pain, R>L after he twisted his left ankle last night and tried to catch himself so he wouldn't fall. He reports swelling and redness since. Ambulated into triage. Wendy: X-rays ordered <DONNELL Salguero - Last Filed: 06/12/22 14:47> Reevaluation(s) Reevaluation #1: 42-year-old male presenting to the ER with complaints of bilateral ankle pain and right foot pain near the heel since yesterday worse today. Reports that he had a twist injury to his left ankle tried to catch himself so he would not fall and tried to compensate with his right foot/ankle. He reports he did not actually fall. This occurred at work. He denies any paresthesias or any other symptoms complaints or concerns at this time. X-rays negative for any acute processes. Will DC home with Chaitanya wrap in treat symptomatically with instructed follow-up with PCP and to return if any new or worsening symptoms. Patient with at bedside understand agree this plan. <DONNELL Dougherty - Last Filed: 06/12/22 16:35> Time: 16:35 <DONNELL Dougherty - Last Filed: 06/12/22 16:35> Discharge Plan Discharge Clinical Impression: Sprain of ankle, left, Right ankle sprain <DONNELL Salguero - Last Filed: 06/12/22 14:47> Patient Disposition: Home, Self-Care <DONNELL Salguero - Last Filed: 06/12/22 14:47> Instructions: Ankle Sprain (ED), How to Use an Elastic Bandage (ED) <DONNELL Salguero - Last Filed: 06/12/22 14:47> Prescriptions: New ibuprofen 800 mg tablet 800 mg PO Q8H PRN (Reason: pain) Qty: 14 0RF No Action ibuprofen 800 mg tablet 800 mg PO Q8H PRN (Reason: for pain) Qty: 90 1RF Advair HFA 230-21 mcg/actuation HFA aerosol inhaler 2 puff inhalation BID 30 Days Qty: 1 6RF montelukast 10 mg tablet 10 mg PO BEDTIME 90 Days Qty: 90 1RF hydrocortisone valerate 0.2 % cream 1 appl topical BID 14 Days Qty: 45 0RF doxepin 10 mg capsule 10 mg PO BEDTIME 90 Days Qty: 90 1RF pantoprazole 40 mg tablet,delayed release (DR/EC) 40 mg PO BID Qty: 180 0RF albuterol sulfate 90 mcg/actuation HFA aerosol inhaler 1 inh inhalation QID PRN (Reason: shortness of breath or wheezing) Qty: 8.5 0RF acetaminophen 500 mg tablet 500 - 1,000 mg PO Q6H PRN (Reason: pain) Qty: 30 0RF cetirizine 10 mg tablet 10 mg PO DAILY 90 Days Qty: 90 1RF <DONNELL Salguero - Last Filed: 06/12/22 14:47> Referrals: Shannon Rosario MD [Primary Care Provider] - <DONNELL Salguero - Last Filed: 06/12/22 14:47> Stand Alone Forms: Work/School Release <DONNELL Salguero - Last Filed: 06/12/22 14:47> Print Language: English <DONNELL Salguero - Last Filed: 06/12/22 14:47>
== END 2022-06-12 16:50 | disposition home or self-care (01) ==
PROVIDERS: Emergency Provider Emergency Medicine; PCP Internal Medicine
DX: S93.402A Sprain of unspecified ligament of left ankle, initial encounter (principal); S93.401A Sprain of unspecified ligament of right ankle, initial encounter; X50.1XXA Overexertion from prolonged static or awkward postures, initial encounter; Y93.9 Activity, unspecified; Y92.59 Other trade areas as the place of occurrence of the external cause; Y99.0 Civilian activity done for income or pay
CPT/HCPCS: 73610; 99282; 99283

== ENCOUNTER 2022-07-07 16:30 | Outpatient (REF) | payer OTHER, SELFPAY ==
--- NOTE | ~2022-07-07 | XR_ITS ---
EXAMINATION: XR ankle RT min 3V, XR ankle LT min 3V CLINICAL INFORMATION: Reason for Exam M25.579 - Pain in unspecified ankle and joints of unspecified foot COMPARISON: 06/12/2022 TECHNIQUE: AP, lateral, and oblique views of the bilateral ankles XR/XR ankle LT min 3V FINDINGS/IMPRESSION: * No acute fracture or dislocation. * Joint spaces are maintained without significant degenerative change. * There is asymmetric soft tissue swelling about the right ankle joint with edema in Kager's fat pad of unclear etiology.
--- NOTE | ~2022-07-07 | XR_ITS ---
EXAMINATION: XR ankle RT min 3V, XR ankle LT min 3V CLINICAL INFORMATION: Reason for Exam M25.579 - Pain in unspecified ankle and joints of unspecified foot COMPARISON: 06/12/2022 TECHNIQUE: AP, lateral, and oblique views of the bilateral ankles XR/XR ankle RT min 3V FINDINGS/IMPRESSION: * No acute fracture or dislocation. * Joint spaces are maintained without significant degenerative change. * There is asymmetric soft tissue swelling about the right ankle joint with edema in Kager's fat pad of unclear etiology.
== END 2022-07-07 16:31 | disposition home or self-care (01) ==
LOC: HO.HOSX 16:30
PROVIDERS: Visit Provider Physician Assistant
DX: S93.401A Sprain of unspecified ligament of right ankle, initial encounter (principal); S93.402A Sprain of unspecified ligament of left ankle, initial encounter
CPT/HCPCS: 73610; 99202

== ENCOUNTER 2022-07-28 07:45 | Day surgery (SDC) | payer OTHER, SELFPAY ==
[2022-07-25 16:17] VITALS: BMI 39.4
--- NOTE | 2022-07-27 10:46 | P.CONAN_ITS ---
HPI - Anesthesia Eval Consult details Narrative: 42yo M for Upper Endoscopy FOR[facility]LY [facility] Active Problems Active Problems: All Active Problems (Updated 06/13/22 @ 00:00 by Susie Velarde) Allergic rhinitis (Acute) Class 2 obesity with body mass index (BMI) of 38.0 to 38.9 in adult (Acute) Right knee pain (Acute) Body aches (Acute) Cough (Acute) Upper respiratory symptom (Acute) Numbness of right hand (Acute) Physical exam (Acute) COVID-19 (Acute) Nausea (Acute) Breast pain, left (Acute) Breast pain, right (Acute) Environmental allergies (Acute) Asthma (Acute) Moderate asthma (Acute) Impaired glucose tolerance (Acute) Soft tissue injury of left shoulder (Acute) GERD (gastroesophageal reflux disease) (Acute) Soft tissue injury of right shoulder (Acute) Mild asthma (Acute) Left shoulder pain (Acute) Neck pain (Acute) Past Medical History Medical History Asthma Breast pain, left Breast pain, right Essential hypertension Impaired glucose tolerance Left shoulder pain Mild asthma Moderate asthma Neck pain Numbness of right hand Physical exam Family History Family History Father Diabetes Mother Hypothyroid Maternal Aunt Skin cancer Sister No problems noted. 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
[2022-07-28 08:23] VITALS: BP 157/84; PULSE 75; RESP 18; TEMP 36.7; O2SAT 97
[2022-07-28] MEDS: Lactated Ringers 1,000 ML 100 ML IVCONT (08:24)
--- NOTE | 2022-07-28 09:22 | MHC.SHP ---
Pre-Procedural Eval Section A Date of Service: 07/28/22 The patient is an INPATIENT: No The History & Physical has been completed within 30 days and I have reviewed it.: No Section B Chief Complaint: reflux disease Details of Present Illness: GERD Relevant Family History (Specify if Yes): No Relevant Social History: None Present Medications: see Short Stay Collaborative assessment Medical History: Significant History (Asthma Breast pain, left Breast pain, right Essential hypertension Impaired glucose tolerance Left shoulder pain Mild asthma Moderate asthma Neck pain Numbness of right hand) History of Previous Operations: Relevant previous surgery/procedure and date(s) (Status post inguinal hernia repair) Allergies: Allergies Allergy/AdvReac Type Severity Reaction Status Date / Time almond [ALMOND] Allergy Mild RASH Verified 07/28/22 08:52 Review of Systems Sugical H&P ROS: Negative: Constitution, Cardiovascular, Respiratory and Gastrointestinal Exam Surgical H&P Exam: Normal: Heart, Normal: Lungs, Normal: Extremities and Normal: Abdomen Plan Diagnosis/Plan: Unchanged I have reviewed the history and physical and performed a pertinent physical examination on my patient. No changes have occurred unless specified. Time Spent With Patient Time: Total time managing care of this patient today ____ minutes.
--- NOTE | 2022-07-28 09:28 | W.PM.OPN ---
Operative Note Operative Note Date of Service: 07/28/22 Narrative: FLEXIBLE TRANSORAL UPPER GASTROINTESTINAL ENDOSCOPY WITH BIOPSIES Pre-op diagnosis: GERD Post-op diagnosis: GERD, Gastritis Endoscopist:? Chiara Finley MD Anesthesia:?MAC Consent: Indications for the procedure and potential complications of bleeding, perforation, reaction to medications and missed diagnosis were discussed with the patient with the help of a Cypriot speech and language assistant and informed consent was obtained. Instrument: Olympus GIF H 190 mid size upper endoscope Monitoring: Vital signs and clinical assessment, continuous EKG monitoring, Pulse oximetry, Carbon Dioxide monitoring and blood pressure monitoring were done throughout the procedure. Procedure: The patient was placed in the left lateral decubitis position and pre-procedure medications were administered and a bite block was placed. The endoscope was inserted into the mouth and advanced under direct vision to the third part of duodenum. A careful inspection was made as the upper endoscope was withdrawn including a retroflexed examination of the proximal stomach; Findings and interventions are described below. Findings: Larynx: Normal Esophagus: GE junction at 40 cms. No esophagitis or Flynn's. Stomach: Mild diffuse gastric erythema. Biopsies were obtained from the antrum and gastric body. Grade 2 flap valve on retroflexed examination of the cardia. Duodenum: Normal bulb and descending duodenum. Biopsies were obtained from 3rd part of the duodenum to check for celiac sprue Intervention: Biopsies as noted above Impression and Post Procedure Diagnosis: Endoscopy Findings: ESOPHAGUS: Normal STOMACH: Gastritis DUODENUM: Normal - biopsied to check for celiac sprue Plan: Await pathology results Patient has an appointment on 08/11/22 in the GI Clinic with Rolanda Mosqueda NP. Above findings were reviewed with the patient with the help of a Cypriot speech and language assistant and GERD handout was given in the discharge area
[2022-07-28 09:56] VITALS: BP 118/76; PULSE 82; RESP 16; TEMP 36.2; O2SAT 96
[2022-07-28 10:11] VITALS: BP 138/75; PULSE 72; RESP 18; TEMP 36.2; O2SAT 96
== END 2022-07-28 10:25 | disposition home or self-care (01) ==
PROVIDERS: PCP Internal Medicine; Visit Provider Internal Medicine Gastroenterology
PROC: 0DJ08ZZ Inspection of Upper Intestinal Tract, Via Natural or Artificial Opening Endoscopic (ICD-10-PCS; CPT 43235; principal; 2022-07-28 09:20)
DX: K21.9 Gastro-esophageal reflux disease without esophagitis (principal); K29.50 Unspecified chronic gastritis without bleeding; I10 Essential (primary) hypertension; R73.02 Impaired glucose tolerance (oral); N64.4 Mastodynia; J45.909 Unspecified asthma, uncomplicated; Z79.51 Long term (current) use of inhaled steroids; Z79.899 Other long term (current) drug therapy
CPT/HCPCS: 43239; 88305; 88342; J2250

== ENCOUNTER → 2022-08-04 11:21 | Outpatient (BNVA) | payer OTHER, SELFPAY | PROVIDERS: PCP Internal Medicine; Visit Provider Physician Assistant | DX: S93.401A Sprain of unspecified ligament of right ankle, initial encounter (principal); S93.402A Sprain of unspecified ligament of left ankle, initial encounter | CPT/HCPCS: 99212 ==

== ENCOUNTER → 2022-09-01 08:48 | Outpatient (BNVA) | payer OTHER, SELFPAY | PROVIDERS: PCP Internal Medicine; Visit Provider Nurse Practitioner | DX: K21.9 Gastro-esophageal reflux disease without esophagitis (principal); R11.0 Nausea | CPT/HCPCS: 99212 ==

== ENCOUNTER 2022-11-09 14:12 | Emergency (ER) | payer OTHER, SELFPAY ==
[2022-11-09 14:38] VITALS: BP 115/85; PULSE 103; RESP 20; TEMP 36.8; O2SAT 95; BMI 39.5
--- NOTE | 2022-11-09 14:45 | ED.GENADULT ---
HPI - General Adult General Chief complaint: General Medical Stated complaint: fever sore throat headache body aches Time Seen by Provider: 11/09/22 15:52 Source: patient and family Mode of arrival: ambulatory Limitations: no limitations History of Present Illness HPI narrative: 42 yo male presents to the ER for evaluation body aches, headaches, subjective fevers and chills that started yesterday. He presents today with for family members have similar symptoms that started 6 days ago. patient denies any shortness of breath, difficulty breathing, chest pain, abdominal pain. He has been eating less but staying hydrated. No urinary symptoms. MD complaint: COVID symptoms after sick contacts Onset (ago): day(s) (1) Location: head Quality: aching Pain Consistency: intermittent Relieving factors: none Exacerbating factors: none Associated symptoms: denies other symptoms Treatments prior to arrival: none Related Data Previous Rx's Medication Instructions Recorded albuterol sulfate 90 mcg/actuation 1 inh inhalation QID PRN shortness 04/24/21 aerosol inhaler of breath or wheezing #8.5 grams acetaminophen 500 mg tablet 500 - 1,000 mg PO Q6H PRN pain #30 08/29/21 tabs cetirizine 10 mg tablet 10 mg PO DAILY 90 days #90 tabs 03/02/22 montelukast 10 mg tablet 10 mg PO BEDTIME 90 days #90 tabs 03/05/22 hydrocortisone valerate 0.2 % 1 appl topical BID 2 weeks #45 04/30/22 topical cream grams pantoprazole 40 mg tablet,delayed 40 mg PO BID #60 tabs 09/01/22 release doxepin 10 mg capsule 10 mg PO BEDTIME 90 days #90 caps 10/10/22 fluticasone propionate 230 2 puff inhalation BID 30 days #1 ea 10/10/22 mcg-salmeterol 21 mcg/actuation HFA inhaler (Advair HFA) Allergies Allergy/AdvReac Type Severity Reaction Status Date / Time almond [ALMOND] Allergy Mild RASH Verified 09/01/22 08:58 No Known Drug Allergies Allergy Unknown none Verified 09/01/22 08:58 Review of Systems Review of Systems: Yes all other systems are reviewed and are negative PMFSH Past Medical History Medical History Asthma Breast pain, left Breast pain, right Essential hypertension Impaired glucose tolerance Left shoulder pain Mild asthma Moderate asthma Neck pain Numbness of right hand Physical exam Surgical History History of inguinal hernia repair Family History Family History Father Diabetes Mother Hypothyroid Maternal Aunt Skin cancer Sister No problems noted. 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 Oriented X3. No acute distress. Head: normocephalic, atraumatic. Eyes: Pupils equal, round and reactive to light. ENT: Pharynx normal. No tonsillar swelling or exudate. Neck: Normal inspection. Neck supple. CVS: Normal heart rate and rhythm. Pulses normal. Respiratory: No respiratory distress. Breath sounds normal. Abdomen: Soft and nontender. +BS x4 Skin: Skin warm and dry. Normal skin color. Normal skin turgor. No rashes. Extremities: No lower extremity edema. No joint swelling. Neuro/psych: Oriented X 3. grossly normal, nonfocal. Normal speech and cognition. Course Course Course Narrative: This is an RME: Additional HPI, ROS, PE not included below will be deferred to primary provider. This is a 33-zfgs-joe-male, hx of asthma, presenting to the ER with complaints of sore throat, body aches, fevers x 3 days. Here with family with similar symptoms. VSS. Plan: COVID, strep test ordered Medical Decision Making Medical Decision Making MDM Narrative: 42-year-old male presents to the ER for evaluation of body aches, headaches, subjective fevers and chills in the setting of known sick contacts with his family members for the last couple of days. Everyone in the home is sick. On arrival to the ER vital signs are stable and physical exam is unremarkable. Lungs are clear. Patient found to have COVID-19 along with his for other family members. He is vaccinated. His symptoms are mild at this time. no role for Paxil of it. He is stable for discharge home with supportive care. Return precautions were discussed. Differential Diagnosis Differential Diagnoses: The differential diagnosis associated with the presentation includes COVID, flu, RSV, other viral syndrome, dehydration, asthma exacerbation Lab Data MDM Lab Attestation statement: I reviewed the patient's lab results. Labs: Lab Results 11/09/22 11/09/22 Range/Units 15:21 15:21 COVID-19 (ESTER) Positive A (Negative) COVID-19 Clin Com See Note S. pyogenes GrpA WEN Negative (Negative) Independent Historian Clinical information obtained from an independent historian. History obtained from or confirmed by: Spouse Tests considered The following testing was considered but not selected: considered cxr Prescription Management I considered prescription management with: Antiviral Chronic Conditions Patient?s care impacted by: Other (mild asthma) Critical Care Time Critical Care Time Critical Care Time: No Discharge Plan Discharge Clinical Impression: COVID-19 Patient Disposition: Home, Self-Care Instructions: COVID-19 (Coronavirus Disease 2019) (ED) Additional Instructions: You were found to be COVID-19 POSITIVE today. Your exam and oxygen levels were normal. Rest. Drink plenty of fluids. Do not go out in public while you are not feeling well. Take over the counter cold/flu medications as needed for your symptoms. Take Tylenol and/or Motrin as needed for fevers and body aches. Follow up with your doctor as needed. If you develop new or worsening symptoms call 911 or come back to the ER for further evaluation. Prescriptions: No Action montelukast 10 mg tablet 10 mg PO BEDTIME 90 Days Qty: 90 1RF hydrocortisone valerate 0.2 % cream 1 appl topical BID 14 Days Qty: 45 0RF doxepin 10 mg capsule 10 mg PO BEDTIME 90 Days Qty: 90 1RF Advair HFA 230-21 mcg/actuation HFA aerosol inhaler 2 puff inhalation BID 30 Days Qty: 1 6RF albuterol sulfate 90 mcg/actuation HFA aerosol inhaler 1 inh inhalation QID PRN (Reason: shortness of breath or wheezing) Qty: 8.5 0RF acetaminophen 500 mg tablet 500 - 1,000 mg PO Q6H PRN (Reason: pain) Qty: 30 0RF cetirizine 10 mg tablet 10 mg PO DAILY 90 Days Qty: 90 1RF pantoprazole 40 mg tablet,delayed release (DR/EC) 40 mg PO BID Qty: 60 6RF Stand Alone Forms: Work/School Release Discharge Date/Time: 11/09/22 16:50 Print Language: Greenlandic
[2022-11-09 15:45] LABS: COVID-19 Test Positive (Negative); IDNOW Serial# 9DB6401D
[2022-11-09 15:50] LABS: IDNOW Serial# 08D9AD1C; Strep A Nucleic Acid Negative (Negative)
== END 2022-11-09 16:50 | disposition home or self-care (01) ==
PROVIDERS: Emergency Provider Internal Medicine; PCP Internal Medicine
DX: U07.1 COVID-19 (principal); R05.9 Cough, unspecified; R50.9 Fever, unspecified; M79.10 Myalgia, unspecified site; R51.9 Headache, unspecified
CPT/HCPCS: 87635; 87651; 99282; 99283

== ENCOUNTER 2022-11-29 10:28 | Outpatient (AMB) | payer OTHER, SELFPAY ==
[2022-11-29 10:34] VITALS: BP 128/76; PULSE 79; O2SAT 97; BMI 38.4
--- NOTE | 2022-11-29 10:34 | A.OFFVIS_ITS ---
Intake Vital Signs 11/29/22 10:34 Height 5 ft 9 in Weight 260 lb 2.327 oz BMI 38.4 BP 128/76 Blood Pressure Location Rt brachial Position Sitting Pulse 79 Pulse Source Pulse Oximeter Pulse Oximetry (%) 97 Oxygen Delivery Method Room Air Intake Visit Reasons: asthma Intake Note: Pt reports everything is going well, needs refill on inhaler. Allergies almond [ALMOND] Allergy (Mild, Verified 09/01/22 08:58) RASH HPI asthma HPI Details 42-year-old gentleman, lifetime non smoker, followed for underlying moderate to severe persistent allergic asthma and environmental allergies.? Patient continues to use Advair 230 and albuterol MDI with excellent control of his underlying asthma symptom.? He denies any recent exacerbations. He uses Singulair and Zyrtec underlying environmental allergies as needed. [facility] Medical History Asthma Breast pain, left Breast pain, right Essential hypertension Impaired glucose tolerance Left shoulder pain Mild asthma Moderate asthma Neck pain Numbness of right hand Physical exam Surgical History History of inguinal hernia repair Family History Father Diabetes Mother Hypothyroid Maternal Aunt Skin cancer Sister No problems noted. Social History Housing: House Alcohol intake: never Patient Tobacco Use Status: Never used Tobacco e-Cigarette/Vaping Use: Never Used Second Hand Smoke Exposure: No service: No Current occupational status: employed Current occupation: work in a [email or web address] Current occupational exposures/hazards: No Cognitive needs: No Hearing needs: No Vision needs: Yes Review of Systems Const Denies daytime sleepiness, Denies excessive sweating, Denies fatigue, Denies fever(s), Denies lethargy, Denies malaise, Denies night sweats, Denies snoring and Denies weight loss Eyes Denies blurry vision and Denies itchy eyes ENT Denies nasal congestion, Denies post nasal drip, Denies sinus pain, Denies sinus pressure and Denies other ( Thrush) Card Denies chest pain, Denies pedal edema, Denies dyspnea, Denies orthopnea and Denies paroxysmal nocturnal dyspnea Resp Denies cough, Denies hemoptysis, Denies excessive phlegm production, Denies dyspnea, Denies snoring and Denies wheezing GI Denies abdominal pain and Denies heartburn Musc Denies myalgias, Denies arthralgias and Denies joint swelling Skin/Breast Denies rash Neuro Denies memory loss and Denies seizure-like activity Psych Denies abnormal sleep pattern, Denies anxiety and Denies memory loss Endo Denies excessive sweating, Denies fatigue and Denies heat intolerance Brandon/Lymph Denies easy bruising Aller/Immun Denies itchy eyes, Denies seasonal rhinorrhea and Denies wheezing Physical Exam Vital Signs: Last Vital Signs Pulse 79 11/29/22 10:34 BP 128/76 11/29/22 10:34 Pulse Ox 97 11/29/22 10:34 Oxygen Delivery Method Room Air 11/29/22 10:34 BMI result Body Mass Index 38.4 Const General: no acute distress and alert Nutritional Appearance: obese Orientation/consciousness: Other orientation findings ( oriented) HEENT Head: Yes atraumatic Eyes General: appearance normal, both eyes and all related structures Sclerae: sclerae normal EOM: EOMs intact bilaterally Neck Neck: Yes supple Lymphatic: no lymphadenopathy noted Resp Effort & Inspection: normal respiratory effort and no use of accessory muscles Auscultation: clear to auscultation bilaterally Cardio Rate: regular rate Rhythm: regular rhythm Heart sounds: no gallops, no murmurs and no rubs Skin General skin exam: other ( warm) Extrem General: No clubbing, No cyanosis and No edema Assessment & Plan Assessment & Plan (1) Moderate asthma: Code(s): J45.909 - Unspecified asthma, uncomplicated Qualifiers: Asthma persistence: persistent Asthma complication type: uncomplicated Qualified Code(s): J45.40 - Moderate persistent asthma, uncomplicated Plan: Well controlled on Advair 230 and albuterol MDI. Continue current regimen. (2) Environmental allergies: Code(s): Z91.09 - Other allergy status, other than to drugs and biological substances Plan: Well controlled on Singulair and Zyrtec, continue current regimen. Medications: Refilled montelukast 10 mg PO BEDTIME 90 tabs 3RF 90 days albuterol sulfate 90 mcg/actuation 1 inh inhalation QID PRN 8.5 grams 6RF shortness of breath or wheezing J45.909 - Unspecified asthma, uncomplicated fluticasone propion-salmeterol 230-21 mcg/actuation (Advair HFA) 2 puffs inhalation BID 1 ea 6RF 30 days Coding Level of Care Code Est Pt Level 4 (89457) Diagnoses Moderate asthma J45.40 Asthma persistence: persistent Asthma complication type: uncomplicated Environmental allergies Z91.09
== END 2022-11-29 10:45 | disposition home or self-care (01) ==
PROVIDERS: PCP Internal Medicine; Visit Provider Internal Medicine Pulmonary Disease
DX: J45.40 Moderate persistent asthma, uncomplicated (principal); Z91.09 Other allergy status, other than to drugs and biological substances
CPT/HCPCS: 99214

== ENCOUNTER → 2022-11-29 10:28 | Outpatient (BNVA) | payer OTHER, SELFPAY | PROVIDERS: PCP Internal Medicine; Visit Provider Internal Medicine Pulmonary Disease | DX: J45.40 Moderate persistent asthma, uncomplicated (principal); Z91.09 Other allergy status, other than to drugs and biological substances | CPT/HCPCS: 99212 ==

== ENCOUNTER 2022-12-06 12:53 | Outpatient (AMB) | payer OTHER, SELFPAY ==
[2022-12-06 12:54] VITALS: BP 112/80; BMI 39.1
--- NOTE | 2022-12-06 12:54 | MHC.PC.OV ---
Vital Signs 12/06/22 12:54 Height 5 ft 8 in Weight 257 lb BMI 39.1 BP 112/80 Blood Pressure Location Lt brachial Position Sitting Intake Visit Reasons: right shoulder pain radiating to elbow Intake Note: Patient here c/o right shoulder pain radiating to elbow Director Of Health Education Required: No Accompanied by: Self / Same As Patient Allergies almond [ALMOND] Allergy (Mild, Verified 12/06/22 13:01) RASH Medication List - Last Reconciled 12/06/22 by Shannon Chowdhury MD acetaminophen 500 - 1,000 mg (1 - 2 x 500 mg) PO Q6H PRN albuterol sulfate 90 mcg/actuation 1 inh inhalation QID PRN cetirizine 10 mg PO DAILY 90 days doxepin 10 mg PO BEDTIME 90 days fluticasone propion-salmeterol 230-21 mcg/actuation (Advair HFA) 2 puffs inhalation BID 30 days hydrocortisone valerate 0.2% 1 appl topical BID 2 weeks montelukast 10 mg PO BEDTIME 90 days pantoprazole 40 mg PO BID Tobacco use date assessed: 07/19/22 Dental Screening Dental Screen Date: 12/06/22 Did you have a dental visit in the last 12 months?: Yes Did you have a dental problem in the last 6 months where you did not have access to dental care?: No Was dental information given to patient?: Patient has dentist HPI HPI Comments History of Present Illness Details Patient complains of right shoulder pain and right elbow pain that started about a month ago. He does not recall any previous trauma. Has full active range of motion. The pain that bothers him most is the elbow. No redness in the area. He is accompanied by . [facility] Medical History Asthma Breast pain, left Breast pain, right Essential hypertension Impaired glucose tolerance Left shoulder pain Mild asthma Moderate asthma Neck pain Numbness of right hand Physical exam Surgical History History of inguinal hernia repair Family History Father Diabetes Mother Hypothyroid Maternal Aunt Skin cancer Sister No problems noted. 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 Naif Torres, Jesenia Grant, Manoj Ledbetter and colleagues, with an educational danitza from [employer]. Review of Systems Const All systems reviewed & are unremarkable except as noted in HPI and below Eyes Reports no additional complaints, Denies change in vision and Denies other visual disturbances Card Denies chest pain at rest, Denies chest pain with activity, Denies edema, Denies irregular heart rhythm, Denies claudication, Denies dyspnea, Denies dyspnea on exertion, Denies orthopnea, Denies paroxysmal nocturnal dyspnea and Denies slow heart rate Resp Denies cough, Denies dyspnea and Denies dyspnea on exertion GI Denies abdominal pain, Denies change in bowel habits, Denies excessive flatus, Denies nausea and Denies vomiting Denies urinary hesitancy, Denies urinary incontinence and Denies urinary urgency Musc Denies abnormal gait, Denies atrophy, Denies deformity and Denies limited range of motion Skin/Breast Denies bleeding lesions, Denies changing lesions and Denies rash Neuro Denies abnormal gait and Denies lack of coordination Physical exam (Primary Care) Vital Signs: Last Vital Signs BP 112/80 12/06/22 12:54 BMI result Body Mass Index 39.1 Tobacco/Smoking Status: Tobacco use Status Tobacco use date assessed 07/19/22 12/06/22 12:58 Patient Tobacco Use Status Never used Tobacco 12/06/22 12:58 e-Cigarette/Vaping Use Never Used 12/06/22 12:58 Thrive Assessment: Date of Thrive Assessment Date Thrive assessed 07/19/22 12/06/22 12:58 Eyes General: appearance normal, both eyes and all related structures Eyelids: Yes eyelids normal Conjunctivae: conjunctivae normal Neck Neck: Yes normal visual inspection and Yes supple Resp Effort & Inspection: normal respiratory effort Auscultation: clear to auscultation bilaterally Cardio Jugular venous distension: no JVD Rate: regular rate Rhythm: regular rhythm Heart sounds: S1 normal heart sound present and S2 normal heart sound present Extrem General: Yes full ROM Assessment and Plan Assessment & Plan (1) Right elbow pain: Code(s): M25.521 - Pain in right elbow Plan: Start occupational therapy. (2) Right shoulder pain: Code(s): M25.511 - Pain in right shoulder Plan: X-ray ordered Orders: Orders OT Evaluation and Treatment Today M25.521 - Pain in right elbow XR elbow RT 2V Today M25.521 - Pain in right elbow XR shoulder RT min 2V Today M25.511 - Pain in right shoulder Medications: Refilled hydrocortisone valerate 0.2% 1 appl topical BID 45 grams 0RF 2 weeks Coding Level of Care Code Est Pt Level 3 (90663) Diagnoses Right elbow pain M25.521 Right shoulder pain M25.511 Time Spent (min) 19
== END 2022-12-06 13:07 | disposition home or self-care (01) ==
PROVIDERS: PCP Internal Medicine; Visit Provider Internal Medicine
DX: M25.521 Pain in right elbow (principal); M25.511 Pain in right shoulder
CPT/HCPCS: 99213

== ENCOUNTER 2022-12-06 13:19 | Outpatient (REF) | payer OTHER, SELFPAY ==
--- NOTE | ~2022-12-06 | XR_ITS ---
EXAMINATION: XR SHOULDER, RIGHT CLINICAL INFORMATION: Pain in the right shoulder COMPARISON: None available. TECHNIQUE: AP external rotation, Grashey, scapular Y, and axillary views of the right shoulder. FINDINGS: The bones and soft tissues are normal. No fracture. Glenohumeral and acromioclavicular alignment is anatomic with normal joint space. No abnormal soft tissue calcifications. XR/XR shoulder RT min 2V IMPRESSION: Normal right shoulder.
--- NOTE | ~2022-12-06 | XR_ITS ---
EXAMINATION: XR ELBOW, RIGHT CLINICAL INFORMATION: Pain in the right elbow COMPARISON: None available. TECHNIQUE: AP, lateral, and oblique views of the right elbow. FINDINGS: The bones and soft tissues are normal. No fracture or joint effusion. Alignment is anatomic. Joint spaces are maintained. XR/XR elbow RT 2V IMPRESSION: Normal right elbow.
== END 2022-12-06 13:20 | disposition home or self-care (01) ==
LOC: HO.XRAY 13:19
PROVIDERS: PCP Internal Medicine; Visit Provider Internal Medicine
DX: M25.511 Pain in right shoulder (principal); M25.521 Pain in right elbow
CPT/HCPCS: 73030; 73070

== ENCOUNTER 2023-01-18 08:02 | Outpatient (AMB) | payer OTHER, SELFPAY ==
--- NOTE | 2023-01-18 08:07 | MHC.PC.OV ---
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 Accompanied by: Significant Other Allergies almond [ALMOND] Allergy (Mild, Verified 01/18/23 08:16) RASH Medication List - Last Reconciled 01/18/23 by Shannon Chowdhury MD acetaminophen 500 - 1,000 mg (1 - 2 x 500 mg) PO Q6H PRN albuterol sulfate 90 mcg/actuation 1 inh inhalation QID PRN cetirizine 10 mg PO DAILY 90 days doxepin 10 mg PO BEDTIME 90 days fluticasone propion-salmeterol 230-21 mcg/actuation (Advair HFA) 2 puffs inhalation BID 30 days hydrocortisone valerate 0.2% 1 appl topical BID 2 weeks montelukast 10 mg PO BEDTIME 90 days pantoprazole 40 mg PO BID Tobacco use date assessed: 07/19/22 Dental Screening Dental Screen Date: 01/18/23 Did you have a dental visit in the last 12 months?: Yes Did you have a dental problem in the last 6 months where you did not have access to dental care?: No Was dental information given to patient?: Patient has dentist HPI HPI Comments History of Present Illness Details This is a 42-year-old male with moderate asthma, allergic rhinitis and GERD that complains right elbow pain that has been present for few months. Has full active range of motion. X-ray was normal. Will be referred to Ortho and receive occupational therapy. Asthma stable with longstanding inhaler and use rescue inhaler as needed. On antihistamines for his allergic rhinitis. GERD stable with PPIs. Accompanied by . [facility] Medical History Numbness of right hand Physical exam Breast pain, left Breast pain, right Moderate asthma Impaired glucose tolerance Essential hypertension Mild asthma Left shoulder pain Neck pain Asthma Surgical History History of inguinal hernia repair Family History Father Diabetes Mother Hypothyroid Maternal Aunt Skin cancer Sister No problems noted. 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 Naif Torres, Jesenia Grant, Manoj Ledbetter and colleagues, with an educational danitza from [employer]. Review of Systems Const All systems reviewed & are unremarkable except as noted in HPI and below Eyes Reports no additional complaints, Denies change in vision and Denies other visual disturbances Card Denies chest pain at rest, Denies chest pain with activity, Denies edema, Denies irregular heart rhythm, Denies claudication, Denies dyspnea, Denies dyspnea on exertion, Denies orthopnea, Denies paroxysmal nocturnal dyspnea and Denies slow heart rate Resp Denies cough, Denies dyspnea and Denies dyspnea on exertion GI Denies abdominal pain, Denies change in bowel habits, Denies excessive flatus, Denies nausea and Denies vomiting Denies urinary hesitancy, Denies urinary incontinence and Denies urinary urgency Musc Denies abnormal gait, Denies atrophy, Denies deformity and Denies limited range of motion Skin/Breast Denies bleeding lesions, Denies changing lesions and Denies rash Neuro Denies abnormal gait and Denies lack of coordination Physical exam (Primary Care) Vital Signs: Last Vital Signs BP 110/74 01/18/23 08:10 BMI result Body Mass Index 38.5 Tobacco/Smoking Status: Tobacco use Status Tobacco use date assessed 07/19/22 01/18/23 08:09 Patient Tobacco Use Status Never used Tobacco 01/18/23 08:09 e-Cigarette/Vaping Use Never Used 01/18/23 08:09 Thrive Assessment: Date of Thrive Assessment Date Thrive assessed 07/19/22 01/18/23 08:09 Eyes General: appearance normal, both eyes and all related structures Eyelids: Yes eyelids normal Conjunctivae: conjunctivae normal Neck Neck: Yes normal visual inspection and Yes supple Resp Effort & Inspection: normal respiratory effort Auscultation: clear to auscultation bilaterally Cardio Jugular venous distension: no JVD Rate: regular rate Rhythm: regular rhythm Heart sounds: S1 normal heart sound present and S2 normal heart sound present Extrem General: Yes full ROM Office Procedures Flu Questionnaire Does the patient have a severe egg allergy?: No Does the patient have severe life threatening allergies?: No Does the patient have a fever or illness today?: No Has the patient ever had Guillain-[place] Syndrome?: No Has the patient ever had any past reaction to a flu shot?: No Immunizations flu vacc [id number] 6mos up(PF) 60 mcg(15 mcgx4)/0.5 mL IM syringe Performing Provider: Shannon Chowdhury MD [facility] Administered by: ZI Cerna on 01/18/23 08:28 Dose Route Admin Location Dispensed Lot Number Expiration Date NDC Horticultural Agent 0.5 mL IM Left Deltoid 0.5 mL [id number] 10/14/23 [id number] [employer] VIS Given Date VIS Provided VIS Publication Date 01/18/23 Single Vaccine 20 Eligibility Eligibility Date Funding Source Not [facility] Eligible 01/18/23 Private Assessment and Plan Assessment & Plan (1) Right elbow pain: Code(s): M25.521 - Pain in right elbow Plan: Referred to Ortho. (2) Moderate asthma: Code(s): J45.909 - Unspecified asthma, uncomplicated Qualifiers: Asthma complication type: uncomplicated Asthma persistence: persistent Qualified Code(s): J45.40 - Moderate persistent asthma, uncomplicated Plan: Continue longstanding inhaler. Use rescue inhaler as needed (3) GERD (gastroesophageal reflux disease): Code(s): K21.9 - Gastro-esophageal reflux disease without esophagitis Plan: Continue PPIs as needed. (4) Allergic rhinitis: Code(s): J30.9 - Allergic rhinitis, unspecified Plan: Continue antihistamines as needed. Orders: Orders Lipid Panel 6 Months E66.9 - Obesity, unspecified, Z68.38 - Body mass index [BMI] 38.0-38.9, adult Influenza [id number] Immunization Today Z23 - Encounter for immunization OT Evaluation and Treatment Today M25.521 - Pain in right elbow Comprehensive [place]. Panel Fast 6 Months E66.9 - Obesity, unspecified, Z68.38 - Body mass index [BMI] 38.0-38.9, adult Referrals Orthopedics Referral M25.521 - Pain in right elbow Medications: New flu vacc [id number] 6mos up(PF) 0.5 mL IM ONCE 0.5 mL 0RF Z23 - Encounter for immunization Coding Level of Care Code Est Pt Level 4 (23837) Diagnoses Right elbow pain M25.521 Moderate persistent asthma without complication J45.40 Asthma complication type: uncomplicated Asthma persistence: persistent GERD (gastroesophageal reflux disease) K21.9 Allergic rhinitis J30.9 Time Spent (min) 22
[2023-01-18 08:10] VITALS: BP 110/74; BMI 38.5
== END 2023-01-18 08:26 | disposition home or self-care (01) ==
PROVIDERS: PCP Internal Medicine; Visit Provider Internal Medicine
DX: Z23 Encounter for immunization (principal); J45.40 Moderate persistent asthma, uncomplicated; M25.521 Pain in right elbow; K21.9 Gastro-esophageal reflux disease without esophagitis; I10 Essential (primary) hypertension
CPT/HCPCS: 90471; 90686; 99214

== ENCOUNTER 2023-03-02 09:18 | Outpatient (AMB) | payer OTHER, SELFPAY ==
[2023-03-02 09:20] VITALS: BP 117/67; PULSE 81; BMI 38.7
--- NOTE | 2023-03-02 09:20 | MHC.OFFVIS ---
Intake Vital Signs 03/02/23 09:20 Height 5 ft 8 in Weight 254 lb 13.67 oz BMI 38.7 BP 117/67 Blood Pressure Location Rt brachial Position Sitting Pulse 81 Intake Visit Reasons: 6 month follow up Intake Note: Patient presents to in office visit today in follow up of 6 months GERD. CC: Patient reports abdominal cramps yesterday and has a BM but feels like he stills feels like he is not done. He also reports loud noises from his stomach. Managed Care Director Required: Yes Managed Care Director Language: [place] Accompanied by: Spouse Allergies almond [ALMOND] Allergy (Mild, Verified 01/18/23 08:16) RASH No Known Drug Allergies Allergy (Unknown, Verified 03/02/23 09:21) none HPI 6 month follow up HPI Details Assessment & Plan (1) GERD (gastroesophageal reflux disease): Code(s): K21.9 - Gastro-esophageal reflux disease without esophagitis Plan: [place] #Rachelle Dominique He had the EGD so we review it and it is normal. He continue to do well w/o any nausea on his protonix 40mg bid. Since he is stable, I offer that he may follow up with me or have his PCP take over the protonix rx. They says that they prefer to follow up with me. ROV 6 mos. (2) Nausea: Comment: Resolved when put on pantoprazole Code(s): R11.0 - Nausea Medications: Refilled pantoprazole 40 mg PO BID 60 t abs 6RF K21.9 - Gastro-eso phageal reflux dis ease without esoph agitis TODAY VISIT [place] #Em HE continues on hte protonix with good GERD control. He has been having trouble with borborygmus, despite having a feeling of complete evacuation. His normal BM is a couple of times a day. This just started 2-3 days ago of sudden onset. HE can not ID any medication changes, diet changes or sick contacts. He denies any N/V, fevers/chills but has pain in the periumbilical pain 5/10 which will last at this intensity 2-3 minutes and this will happen about 1-2 times a week. No change in consistency of his stools. DDX is wide and could include a mild passing infection that is mostly subclinical. Will trial bentyl and I advised him of alarm signs or symptoms to watch for that would necessitate an ER visit her occult to my office. Will see how this develops. ROV 4-5 weeks. [facility] Medical History Numbness of right hand Physical exam Breast pain, left Breast pain, right Moderate asthma Impaired glucose tolerance Essential hypertension Mild asthma Left shoulder pain Neck pain Asthma Surgical History History of inguinal hernia repair Family History Father Diabetes Mother Hypothyroid Maternal Aunt Skin cancer Sister No problems noted. 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 Current occupational exposures/hazards: No Cognitive needs: No Hearing needs: No Vision needs: Yes Review of Systems Const Denies fatigue, Denies fever(s), Denies night sweats, Denies poor appetite and Denies weight loss Eyes Details: glasses Reports requires corrective lenses ENT Reports Normal hearing present, Denies dental pain, Denies dysphagia, Denies hearing loss, Denies mouth pain, Denies odynophagia, Denies throat swelling, Denies tongue swelling and Reports other (Dentition adequate) Card Reports no additional complaints Resp Reports no additional complaints GI Denies abdominal pain, Denies melena, Denies bloating, Denies hematochezia, Reports tenesmus, Reports constipation, Denies GI cramping, Denies dysphagia, Denies excessive flatus, Denies early satiety, Reports heartburn, Denies diarrhea, Denies nausea, Denies odynophagia, Denies vomiting and Denies hematemesis Skin/Breast Denies pruritus, Denies lesions, Denies rash and Denies jaundice Neuro Reports Normal hearing present and Denies Abnormal speech present Endo Denies fatigue Aller/Immun Denies throat swelling and Denies tongue swelling Physical Exam Vital Signs: Last Vital Signs Pulse 81 03/02/23 09:20 BP 117/67 03/02/23 09:20 BMI result Body Mass Index 38.7 Const General: cooperative, no acute distress, well developed and well groomed Nutritional Appearance: well nourished and obese Orientation/consciousness: oriented to person, oriented to place and oriented to time Limitations: No language barrier HEENT Head: Yes normocephalic and Yes atraumatic Eyes General: appearance normal, both eyes and all related structures Pupils: Equal, round and reactive pupils present Neck Neck: Yes normal visual inspection and Yes no lymphadenopathy Thyroid: Thyroid normal Resp Effort & Inspection: normal respiratory effort and able to speak in complete sentences Auscultation: clear to auscultation bilaterally Cardio Rate: regular rate Rhythm: regular rhythm Heart sounds: Normal, physiologic split S2 sound present Peripheral pulses: radial pulses present and posterior tibial pulses present GI Inspection: No distended, Yes Abdominal panniculus present and Yes obesity Palpation (GI): Soft to palpation, nontender, no guarding, not rigid and No hepatosplenomegaly present Percussion: Yes normal to percussion Auscultation: normal bowel sounds Rectal Exam - Male: Yes deferred Skin General skin exam: no rashes or lesions noted, turgor normal, skin not dry, no jaundice, No spider nevi and no striae Rashes: no rashes Nails: normal Neuro General: oriented to person, oriented to place and oriented to time Cranial nerves: Yes Equal, round and reactive pupils present and Yes Normal hearing present Speech: No Abnormal speech present Extrem General: Yes normal to inspection, No clubbing, No cyanosis and No edema Psych Appearance: grossly normal and well kempt Mental Status: mental status grossly normal Speech and movement: Normal speech and movement present Affect: normal affect Attitude: cooperative Thought process: Normal thought process present and not confabulating Thought content: Normal thought content present Insight: Fair insight present (Psych) Judgement: Fair judgement present (Psych) Assessment & Plan Assessment & Plan (1) Borborygmus: Code(s): R19.8 - Other specified symptoms and signs involving the digestive system and abdomen Plan: [place] #Em HE continues on hte protonix with good GERD control. He has been having trouble with borborygmus, despite having a feeling of complete evacuation. His normal BM is a couple of times a day. This just started 2-3 days ago of sudden onset. HE can not ID any medication changes, diet changes or sick contacts. He denies any N/V, fevers/chills but has pain in the periumbilical pain 5/10 which will last at this intensity 2-3 minutes and this will happen about 1-2 times a week. No change in consistency of his stools. DDX is wide and could include a mild passing infection that is mostly subclinical. Will trial bentyl and I advised him of alarm signs or symptoms to watch for that would necessitate an ER visit her occult to my office. Will see how this develops. ROV 4-5 weeks. (2) Periumbilical abdominal pain: Code(s): R10.33 - Periumbilical pain Medications: New dicyclomine 10 mg PO TID 90 caps 0RF R10.33 - Periumbilical pain, R19.8 - Other specified symptoms and signs involving the digestive system and abdomen Refilled pantoprazole 40 mg PO BID 60 tabs 6RF K21.9 - Gastro-esophageal reflux disease without esophagitis Coding Level of Care Code Est Pt Level 3 (27235) Diagnoses Borborygmus R19.8 Periumbilical abdominal pain R10.33
== END 2023-03-02 09:54 | disposition home or self-care (01) ==
LOC: HO.HGI 09:18
PROVIDERS: PCP Internal Medicine; Visit Provider Nurse Practitioner
DX: R19.8 Other specified symptoms and signs involving the digestive system and abdomen (principal); R10.33 Periumbilical pain
CPT/HCPCS: 99213

== ENCOUNTER → 2023-03-02 09:18 | Outpatient (BNVA) | payer OTHER, SELFPAY | PROVIDERS: PCP Internal Medicine; Visit Provider Nurse Practitioner | DX: R19.8 Other specified symptoms and signs involving the digestive system and abdomen (principal); R10.33 Periumbilical pain | CPT/HCPCS: 99212 ==

== ENCOUNTER 2023-05-30 09:42 | Outpatient (AMB) | payer OTHER, SELFPAY ==
--- NOTE | 2023-05-30 09:51 | MHC.OFFVIS ---
Intake Vital Signs 05/30/23 09:52 Height 5 ft 8 in Weight 260 lb 2.327 oz BMI 39.6 BP 112/75 Blood Pressure Location Rt brachial Position Sitting Pulse 82 Intake Visit Reasons: 5 week follow up IBS, GERD Intake Note: Patient presents to in office visit today in follow up of 5 weeks follow up of GERD. CC: Patient reports doing better. Denies having any other GI symptoms. Card Game Operator Required: Yes Card Game Operator Language: [place] Accompanied by: Spouse Allergies almond [ALMOND] Allergy (Mild, Verified 05/30/23 09:56) RASH No Known Drug Allergies Allergy (Unknown, Verified 05/30/23 09:56) none HPI 5 week follow up IBS, GERD HPI Details Assessment & Plan (1) Borborygmus: Code(s): R19.8 - Other specified symptoms and signs involving the digestive system and abdomen Plan: [place] #Em HE continues on the protonix with good GERD control. He has been having trouble with borborygmus, despite having a feeling of complete evacuation. His normal BM is a couple of times a day. This just started 2-3 days ago of sudden onset. HE can not ID any medication changes, diet changes or sick contacts. He denies any N/V, fevers/chills but has pain in the periumbilical pain 5/10 which will last at this intensity 2-3 minutes and this will happen about 1-2 times a week. No change in consistency of his stools. DDX is wide and could include a mild passing infection that is mostly subclinical. Will trial bentyl and I advised him of alarm signs or symptoms to watch for that would necessitate an ER visit her occult to my office. Will see how this develops. ROV 4-5 weeks. (2) Periumbilical abdominal pain: Code(s): R10.33 - Periumbilical pain Medications: New dicyclomine 10 mg PO TID 90 ca ps 0RF R10.33 - Periumbil ical pain, R19.8 - Other specified s ymptoms and signs involving the dige stive system and a bdomen Refilled pantoprazole 40 mg PO BID 60 ta bs 6RF K21.9 - Gastro-eso phageal reflux dis ease without esoph agitis TODAY'S VISIT [place] #Johanne Live. He is here today with his who is supportive. He received the dicyclomine and has resolved his periumbilical abdominal discomfort and borborygmi. He is now satisfied with his GI regimen including his pantoprazole twice a day with good release of his GERD. Return office visit in 6 months. [facility] Medical History Numbness of right hand Physical exam Breast pain, left Breast pain, right Moderate asthma Impaired glucose tolerance Essential hypertension Mild asthma Left shoulder pain Neck pain Asthma Surgical History History of inguinal hernia repair Family History Father Diabetes Mother Hypothyroid Maternal Aunt Skin cancer Sister No problems noted. 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 Current occupational exposures/hazards: No Cognitive needs: No Hearing needs: No Vision needs: Yes Review of Systems Const Denies fatigue, Denies fever(s), Denies night sweats, Denies poor appetite and Denies weight loss Eyes Details: Glasses Reports requires corrective lenses ENT Reports Normal hearing present, Denies dental pain, Denies dysphagia, Denies hearing loss, Denies mouth pain, Denies odynophagia, Denies throat swelling, Denies tongue swelling and Reports other (Dentition adequate) Card Reports no additional complaints Resp Reports no additional complaints GI Details: Denies abdominal pain, Denies melena, Denies bloating, Denies hematochezia, Denies constipation, Reports GI cramping, Denies dysphagia, Denies excessive flatus, Denies early satiety, Reports heartburn, Denies diarrhea, Denies nausea, Denies odynophagia, Denies vomiting and Denies hematemesis Skin/Breast Denies pruritus, Denies lesions, Denies rash and Denies jaundice Neuro Reports Normal hearing present and Denies Abnormal speech present Endo Denies fatigue Aller/Immun Denies throat swelling and Denies tongue swelling Physical Exam Vital Signs: Last Vital Signs Pulse 82 05/30/23 09:52 BP 112/75 05/30/23 09:52 BMI result Body Mass Index 39.6 Const General: cooperative, no acute distress, well developed and well groomed Nutritional Appearance: well nourished and obese Orientation/consciousness: oriented to person, oriented to place and oriented to time Limitations: language barrier HEENT Head: Yes normocephalic and Yes atraumatic Eyes General: appearance normal, both eyes and all related structures Pupils: Equal, round and reactive pupils present Neck Neck: Yes normal visual inspection and Yes no lymphadenopathy Thyroid: Thyroid normal Resp Effort & Inspection: normal respiratory effort and able to speak in complete sentences Auscultation: clear to auscultation bilaterally Cardio Rate: regular rate Rhythm: regular rhythm Heart sounds: Normal, physiologic split S2 sound present Peripheral pulses: radial pulses present and posterior tibial pulses present GI Inspection: No distended, No Abdominal panniculus present and Yes obesity Palpation (GI): Soft to palpation, nontender, no guarding, not rigid and No hepatosplenomegaly present Percussion: Yes normal to percussion Auscultation: normal bowel sounds Rectal Exam - Male: Yes deferred Skin General skin exam: no rashes or lesions noted, turgor normal, skin not dry, no jaundice, No spider nevi and no striae Rashes: no rashes Nails: normal Neuro General: oriented to person, oriented to place and oriented to time Cranial nerves: Yes Equal, round and reactive pupils present and Yes Normal hearing present Speech: No Abnormal speech present Extrem General: Yes normal to inspection, No clubbing, No cyanosis and No edema Psych Appearance: grossly normal and well kempt Mental Status: mental status grossly normal Speech and movement: Normal speech and movement present Affect: normal affect Attitude: cooperative Thought process: Normal thought process present and not confabulating Thought content: Normal thought content present Insight: Limited insight present (Psych) Judgement: Limited judgement present (Psych) Assessment & Plan Assessment & Plan (1) GERD (gastroesophageal reflux disease): Code(s): K21.9 - Gastro-esophageal reflux disease without esophagitis (2) Borborygmus: Code(s): R19.8 - Other specified symptoms and signs involving the digestive system and abdomen (3) Periumbilical abdominal pain: Code(s): R10.33 - Periumbilical pain Plan [place] #Johanne Live. He is here today with his who is supportive. He received the dicyclomine and has resolved his periumbilical abdominal discomfort and borborygmi. He is now satisfied with his GI regimen including his pantoprazole twice a day with good release of his GERD. Return office visit in 6 months. Medications: Refilled dicyclomine 10 mg PO TID 90 caps 6RF R10.33 - Periumbilical pain, R19.8 - Other specified symptoms and signs involving the digestive system and abdomen pantoprazole 40 mg PO BID 60 tabs 6RF K21.9 - Gastro-esophageal reflux disease without esophagitis Coding Level of Care Code Est Pt Level 3 (07791) Diagnoses GERD (gastroesophageal reflux disease) K21.9 Borborygmus R19.8 Periumbilical abdominal pain R10.33
[2023-05-30 09:52] VITALS: BP 112/75; PULSE 82; BMI 39.6
== END 2023-05-30 10:10 | disposition home or self-care (01) ==
PROVIDERS: PCP Internal Medicine; Visit Provider Nurse Practitioner
DX: K21.9 Gastro-esophageal reflux disease without esophagitis (principal); R19.8 Other specified symptoms and signs involving the digestive system and abdomen; R10.33 Periumbilical pain
CPT/HCPCS: 99213

== ENCOUNTER → 2023-05-30 09:42 | Outpatient (BNVA) | payer OTHER, SELFPAY | PROVIDERS: PCP Internal Medicine; Visit Provider Nurse Practitioner | DX: K21.9 Gastro-esophageal reflux disease without esophagitis (principal); R19.8 Other specified symptoms and signs involving the digestive system and abdomen; R10.33 Periumbilical pain | CPT/HCPCS: 99212 ==

== ENCOUNTER 2023-06-27 09:04 | Outpatient (AMB) | payer OTHER, SELFPAY ==
[2023-06-27 09:14] VITALS: BP 122/77; PULSE 77; O2SAT 96; BMI 39.5
--- NOTE | 2023-06-27 09:14 | MHC.OFFVIS ---
Intake Vital Signs 06/27/23 09:14 Height 5 ft 8 in Weight 260 lb BMI 39.5 BP 122/77 Blood Pressure Location Lt brachial Position Sitting Pulse 77 Pulse Source Doppler Pulse Oximetry (%) 96 Oxygen Delivery Method Room Air Intake Visit Reasons: Asthma Distillation Operator Helper Required: Yes Distillation Operator Helper Name: Pari Ashby Marie Allergies almond [ALMOND] Allergy (Mild, Verified 05/30/23 09:56) RASH No Known Drug Allergies Allergy (Unknown, Verified 05/30/23 09:56) none HPI Asthma HPI Details 43-year-old gentleman, lifetime non smoker, followed for underlying moderate to severe persistent allergic asthma and environmental allergies.? Patient continues to use Advair 230 and albuterol MDI with excellent control of his underlying asthma symptom.? He denies any recent exacerbations. He continues to use Singulair and Zyrtec for his underlying environmental allergies as needed. FORMERLY [facility] Medical History Numbness of right hand Physical exam Breast pain, left Breast pain, right Moderate asthma Impaired glucose tolerance Essential hypertension Mild asthma Left shoulder pain Neck pain Asthma Surgical History History of inguinal hernia repair Family History Father Diabetes Mother Hypothyroid Maternal Aunt Skin cancer Sister No problems noted. 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 Current occupational exposures/hazards: No Cognitive needs: No Hearing needs: No Vision needs: Yes Review of Systems Const Denies daytime sleepiness, Denies excessive sweating, Denies fatigue, Denies fever(s), Denies lethargy, Denies malaise, Denies night sweats, Denies snoring and Denies weight loss Eyes Denies blurry vision and Denies itchy eyes ENT Denies nasal congestion, Denies post nasal drip, Denies sinus pain, Denies sinus pressure and Denies other ( Thrush) Card Denies chest pain, Denies pedal edema, Denies dyspnea, Denies orthopnea and Denies paroxysmal nocturnal dyspnea Resp Denies cough, Denies hemoptysis, Denies excessive phlegm production, Denies dyspnea, Denies snoring and Denies wheezing GI Denies abdominal pain and Denies heartburn Musc Denies myalgias, Denies arthralgias and Denies joint swelling Skin/Breast Denies rash Neuro Denies memory loss and Denies seizure-like activity Psych Denies abnormal sleep pattern, Denies anxiety and Denies memory loss Endo Denies excessive sweating, Denies fatigue and Denies heat intolerance Brandon/Lymph Denies easy bruising Aller/Immun Denies itchy eyes, Denies seasonal rhinorrhea and Denies wheezing Physical Exam Vital Signs: Last Vital Signs Pulse 77 06/27/23 09:14 BP 122/77 06/27/23 09:14 Pulse Ox 96 06/27/23 09:14 Oxygen Delivery Method Room Air 06/27/23 09:14 BMI result Body Mass Index 39.5 Const General: no acute distress and alert Nutritional Appearance: obese Orientation/consciousness: Other orientation findings ( oriented) HEENT Head: Yes atraumatic Eyes General: appearance normal, both eyes and all related structures Sclerae: sclerae normal EOM: EOMs intact bilaterally Neck Neck: Yes supple Lymphatic: no lymphadenopathy noted Resp Effort & Inspection: normal respiratory effort and no use of accessory muscles Auscultation: clear to auscultation bilaterally Cardio Rate: regular rate Rhythm: regular rhythm Heart sounds: no gallops, no murmurs and no rubs Skin General skin exam: other ( warm) Extrem General: No clubbing, No cyanosis and No edema Assessment & Plan Assessment & Plan (1) Asthma: Code(s): J45.909 - Unspecified asthma, uncomplicated Plan: Well controlled on Advair and albuterol MDI. Continue current regimen. (2) Environmental allergies: Code(s): Z91.09 - Other allergy status, other than to drugs and biological substances Plan: Well controlled on as needed Zyrtec and Singulair. Continue current regimen. Coding Level of Care Code Est Pt Level 4 (03536) Diagnoses Asthma J45.909 Environmental allergies Z91.09
== END 2023-06-27 09:24 | disposition home or self-care (01) ==
PROVIDERS: PCP Internal Medicine; Visit Provider Internal Medicine Pulmonary Disease
DX: J45.909 Unspecified asthma, uncomplicated (principal); Z91.09 Other allergy status, other than to drugs and biological substances
CPT/HCPCS: 99214

== ENCOUNTER → 2023-06-27 09:04 | Outpatient (BNVA) | payer OTHER, SELFPAY | PROVIDERS: PCP Internal Medicine; Visit Provider Internal Medicine Pulmonary Disease | DX: J45.50 Severe persistent asthma, uncomplicated (principal); Z91.09 Other allergy status, other than to drugs and biological substances | CPT/HCPCS: 99212 ==

== ENCOUNTER 2023-08-02 10:05 | Outpatient (AMB) | payer OTHER, SELFPAY ==
--- NOTE | 2023-08-02 10:14 | MHC.PC.OV ---
Vital Signs 08/02/23 10:19 Height 5 ft 8 in Weight 259 lb BMI 39.4 BP 122/76 Blood Pressure Location Lt brachial Position Sitting Intake Visit Reasons: Annual exam Intake Note: patient here for a physical exam Digital Photographer Required: No Accompanied by: Self / Same As Patient Allergies almond [ALMOND] Allergy (Mild, Verified 08/02/23 10:49) RASH No Known Drug Allergies Allergy (Unknown, Verified 08/02/23 10:49) none Medication List - Last Reconciled 08/02/23 by Shannon Chowdhury MD acetaminophen 500 - 1,000 mg (1 - 2 x 500 mg) PO Q6H PRN albuterol sulfate 90 mcg/actuation 1 inh inhalation QID PRN cetirizine 10 mg PO DAILY 90 days dicyclomine 10 mg PO TID doxepin 10 mg PO BEDTIME 90 days fluticasone propion-salmeterol 230-21 mcg/actuation (Advair HFA) 2 puffs inhalation BID 30 days hydrocortisone valerate 0.2% 1 appl topical BID 2 weeks montelukast 10 mg PO BEDTIME 90 days pantoprazole 40 mg PO BID Tobacco use date assessed: 08/02/23 Dental Screening Dental Screen Date: 08/02/23 Did you have a dental visit in the last 12 months?: Yes Was dental information given to patient?: Patient has dentist HPI HPI Comments History of Present Illness Details This is a 43-year-old male that comes accompanied by for his physical exam. Denies any chest pain or shortness of breath. Has BMI of 39.4 and was advised to do diet and exercise to reach BMI goal less than 30. FORMERLY [facility] Medical History Numbness of right hand Physical exam Breast pain, left Breast pain, right Moderate asthma Impaired glucose tolerance Essential hypertension Mild asthma Left shoulder pain Neck pain Asthma Surgical History History of inguinal hernia repair Family History Father Diabetes Mother Hypothyroid Maternal Aunt Skin cancer Sister No problems noted. 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 1. Little interest or pleasure in doing things: not at all 2. Feeling down, depressed, or hopeless: not at all 3. Trouble falling or staying asleep, or sleeping too much: not at all 4. Feeling tired or having little energy: not at all 5. Poor appetite or overeating: not at all 6. Feeling bad about yourself - or that you are a failure or have let yourself or your family down: not at all 7. Trouble concentrating on things, such as reading the newspaper or watching television: not at all 8. Moving or speaking so slowly that other people could have noticed. Or the opposite - being so fidgety or restless that you have been moving around a lot more than usual: not at all 9. Thoughts that you would be better off or of hurting yourself in some way: not at all Total score: 0 Depression Screening Interpretation: Negative Depression Screening Done: Yes 63188 - PHQ-9 Billing: Yes Source: Developed by Drs. Naif Torres, Jesenia Grant, Manoj Ledbetter and colleagues, with an educational danitza from [employer]. Thrive Questionnaire Date Thrive assessed: 08/02/23 I am a: Patient What is your living situation today?: I have a steady place to live Within the past 12 months, did the food you bought not last and you didn't have the money to get more?: Never true Within the past 12 months, did you worry whether your food would run out before you got money to buy more?: Never true Do you have trouble paying for medicines?: No Do you have trouble getting transportation to medical appointments?: No Do you have trouble paying your heating and electricity bill?: No Do you have trouble taking care of your child, family member or friend?: No Do you have trouble with day-to-day activities such as bathing, preparing meals, shopping, managing finances, etc.?: No Are you currently unemployed and looking for a job?: No Are you interested in more education?: No Please select the resources that you would like help with: None Currently or been in a relationship where the following occur: no concerns reported THRIVE Score: 0 AUDIT C Alcohol Use Questionnaire (AUDIT-C) 1. How often do you have a drink containing alcohol?: Never Total Score: 0 Score Reviewed/Action Taken: No PRESTON-7 AMB Questionnaire PRESTON-7 Date PRESTON - 7 assessed: 08/02/23 Feeling nervous, anxious, or on edge: 0 = Not at all Not being able to stop or control worryin = Not at all Worrying too much about different things: 0 = Not at all Trouble relaxin = Not at all Being so restless that it is hard to sit still: 0 = Not at all Becoming easily annoyed or irritable: 0 = Not at all Feeling afraid as if something awful might happen: 0 = Not at all Total PRESTON-7 score (0-4 normal; 5-9 mild; 10-14 moderate; 15-21 severe): 0 Source: Developed by Drs. Naif Torres, Jesenia Grant, Manoj Ledbetter and colleagues, with an educational danitza from [employer]. PRESTON-7 Assessment Billing PRESTON-7 Assessment Tool: PRESTON-7 Assessment 06861 Review of Systems Const All systems reviewed & are unremarkable except as noted in HPI and below Eyes Reports no additional complaints, Denies change in vision and Denies other visual disturbances Card Denies chest pain at rest, Denies chest pain with activity, Denies edema, Denies irregular heart rhythm, Denies claudication, Denies dyspnea, Denies dyspnea on exertion, Denies orthopnea, Denies paroxysmal nocturnal dyspnea and Denies slow heart rate Resp Denies cough, Denies dyspnea and Denies dyspnea on exertion Neuro Denies confusion Psych Denies confusion Physical exam (Primary Care) Vital Signs: Last Vital Signs BP 122/76 08/02/23 10:19 BMI result Body Mass Index 39.4 Tobacco/Smoking Status: Tobacco use Status Tobacco use date assessed 08/02/23 08/02/23 10:22 Patient Tobacco Use Status Never used Tobacco 08/02/23 10:15 e-Cigarette/Vaping Use Never Used 08/02/23 10:15 PHQ-9: PHQ-9 Score PHQ-9: Total score 0 08/02/23 10:52 Depression Screening Interpretation: Negative Thrive Assessment: Date of Thrive Assessment Date Thrive assessed 08/02/23 08/02/23 10:22 Currently or been in a relationship where the following occur: no concerns reported Const General: No confusion Orientation/consciousness: patient oriented x3 and No confusion HENMT Head: Yes normal to inspection, Yes normocephalic and Yes atraumatic Ears: external ears normal Eyes General: appearance normal, both eyes and all related structures Eyelids: Yes eyelids normal Conjunctivae: conjunctivae normal Neck Neck: Yes normal visual inspection and Yes supple Resp Effort & Inspection: normal respiratory effort Auscultation: clear to auscultation bilaterally Cardio Jugular venous distension: no JVD Rate: regular rate Rhythm: regular rhythm Heart sounds: S1 normal heart sound present and S2 normal heart sound present GI Inspection: Yes normal to inspection Palpation (GI): Soft to palpation and nontender Auscultation: normal bowel sounds Skin General skin exam: no rashes or lesions noted Neuro General: patient oriented x3, no focal motor deficits and No confusion Extrem General: Yes full ROM Psych Appearance: grossly normal Assessment and Plan Assessment & Plan (1) Physical exam: Code(s): Z00.00 - Encounter for general adult medical examination without abnormal findings Plan: Repeat in a year. Orders: Orders Complete Blood Count Auto Diff Today D64.9 - Anemia, unspecified Lipid Panel Today Z00.00 - Encounter for general adult medical examination without abnormal findings Comprehensive [place]. Panel Fast Today Z00.00 - Encounter for general adult medical examination without abnormal findings IRON PROFILE Today D64.9 - Anemia, unspecified Coding Level of Care Code Est Pt Prev Care 40-64y(53699) Diagnoses Physical exam Z00.00 Additional Codes PRESTON-7 Assessment Billing - PRESTON-7 Assessment Tool: PRESTON-7 Assessment [id number] ([id number]) Time Spent (min) 31
[2023-08-02 10:19] VITALS: BP 122/76; BMI 39.4
== END 2023-08-02 11:02 | disposition home or self-care (01) ==
PROVIDERS: PCP Internal Medicine; Visit Provider Internal Medicine
DX: Z00.00 Encounter for general adult medical examination without abnormal findings (principal)
CPT/HCPCS: 99396

== ENCOUNTER 2023-09-09 07:53 | Emergency (ER) | payer OTHER, SELFPAY ==
--- NOTE | ~2023-09-09 | XR_ITS ---
EXAMINATION: XR CHEST CLINICAL INFORMATION: Chest tightness COMPARISON: Prior chest x-ray April 2021 TECHNIQUE: Frontal view of the chest was obtained. FINDINGS: No significant abnormality is noted involving the heart, lungs, mediastinum, bony thorax or soft tissues. XR/XR chest 1V IMPRESSION: Unremarkable examination.
[2023-09-09 08:12] VITALS: BP 135/78; PULSE 84; RESP 20; TEMP 37; O2SAT 98; BMI 38.6
--- NOTE | 2023-09-09 08:16 | ECG_ITS ---
Test Reason : SOB Blood Pressure : / mmHG Vent. Rate : 094 BPM Atrial Rate : 094 BPM P-R Int : 140 ms QRS Dur : 080 ms QT Int : 348 ms P-R-T Axes : 022 -03 001 degrees QTc Int : 435 ms Normal sinus rhythm with sinus arrhythmia Nonspecific T wave abnormality Abnormal ECG When compared with ECG of 15-JUN-2020 08:26, Inverted T waves have replaced nonspecific T wave abnormality in Anterior leads Referred By: Generic ED Physician Electronically Signed By:Jan Galindo
[2023-09-09 08:43] LABS: MANUAL DIFF FLAG NO
[2023-09-09 08:44] LABS: Basophils Percent Auto 0.4 % (0-2); Eosinophils Absolute Auto 0.2 X10*3/uL (0.0-0.4); Eosinophils Percent Auto 3.1 % (0-4); Hematocrit 41.4 % (42.0-52.0); Hemoglobin 13.2 g/dl (14.0-18.0); Imm Gran Abs Auto 0.02 X10*3/uL (0.00-0.03); Imm Gran Pct Auto 0.4 % (0.0-0.4); Lymphocytes Absolute Auto 1.2 X10*3/uL (1.2-4.9); Lymphocytes Percent Auto 22.7 % (20-40); Mean Corpuscular HGB Conc 31.9 g/dl (31.0-36.0); Mean Corpuscular Hemoglobin 27.2 pg (27.0-33.0); Mean Corpuscular Volume 85.2 fL (80.0-98.0); Monocytes Absolute Auto 0.4 X10*3/uL (0.1-1.2); Monocytes Percent Auto 7.4 % (2-11); Neutrophils Absolute Auto 3.5 x10*3/uL (2.0-8.3); Platelet Count 227 X10*3/uL (160-400); Red Blood Count 4.86 X10*6/uL (4.60-5.80); Red Cell Distribution Width 14.6 % (11.0-16.0); White Blood Count 5.2 X10*3/uL (4.8-10.8)
[2023-09-09 08:57] LABS: Alanine Aminotransferase 17 U/L (0-40); Albumin Level 4.2 g/dL (3.5-5.0); Alkaline Phosphatase 112 U/L (39-117); Anion Gap 15 (12-20); Aspartate Amino Transferase 15 U/L (5-37); Bilirubin Total 0.3 mg/dL (0.0-1.0); Blood Urea Nitrogen 12 mg/dL (9-16); Calcium 9.2 mg/dL (8.4-10.2); Carbon Dioxide 24 mmol/L (22-29); Chloride 106 mmol/L (96-108); Creatinine Clr Calc Pharmacy 133.1; Estimated Glomerular Filt Rate > 60; Glucose Random 120 mg/dL (60-115); Potassium 3.7 mmol/L (3.3-5.1); Sodium 141 mmol/L (135-145); Total Protein 7.7 g/dL (6.5-8.0)
[2023-09-09 09:12] VITALS: O2SAT 99
--- NOTE | 2023-09-09 09:27 | PC.NURSE ---
labs obtained/sent to lab by [facility].
--- NOTE | 2023-09-09 09:29 | ED_ITS ---
HPI - URI/Sore Throat General Chief Complaint: Upper Respiratory Symptoms Stated Complaint: Chest pain Time Seen by Provider: 09/09/23 08:53 Source: patient and customs and border protection officer Mode of arrival: ambulatory History of Present Illness ED Provider: Dr Tobias HPI Narrative: 43-year-old male with history of asthma comes in with dry cough, body aches, chest congestion, nasal congestion and feels short of breath, reports sick contact from his , onset of symptoms Sunday otherwise denies any GI or symptoms. Related Data Previous Rx's ?Medication ?Instructions ?Recorded acetaminophen 500 mg tablet 500 - 1,000 mg (1 - 2 x 500 mg) PO 08/29/21 Q6H PRN pain #30 tabs cetirizine 10 mg tablet 10 mg PO DAILY 90 days #90 tabs 03/02/22 albuterol sulfate 90 mcg/actuation 1 inh inhalation QID PRN shortness 11/29/22 aerosol inhaler of breath or wheezing #8.5 grams fluticasone propionate 230 2 puff inhalation BID 30 days #1 ea 11/29/22 mcg-salmeterol 21 mcg/actuation HFA inhaler (Advair HFA) montelukast 10 mg tablet 10 mg PO BEDTIME 90 days #90 tabs 11/29/22 hydrocortisone valerate 0.2 % 1 appl topical BID 2 weeks #45 05/14/23 topical cream grams doxepin 10 mg capsule 10 mg PO BEDTIME 90 days #90 caps 05/28/23 dicyclomine 10 mg capsule 10 mg PO TID #90 caps 05/30/23 pantoprazole 40 mg tablet,delayed 40 mg PO BID #60 tabs 05/30/23 release prednisone 50 mg tablet 50 mg PO DAILY 4 days #4 tabs 09/09/23 Allergies Allergy/AdvReac Type Severity Reaction Status Date / Time almond [ALMOND] Allergy Mild RASH Verified 09/09/23 08:15 No Known Drug Allergies Allergy Unknown none Verified 09/09/23 08:15 Review of Systems 2 Review of Systems: Pertinent positives and negatives as stated in HPI [facility] Past Medical History Source: nursing notes reviewed Medical History Numbness of right hand Physical exam Breast pain, left Breast pain, right Moderate asthma Impaired glucose tolerance Essential hypertension Mild asthma Left shoulder pain Neck pain Asthma Surgical History History of inguinal hernia repair Family History Family History Father Diabetes Mother Hypothyroid Maternal Aunt Skin cancer Sister No problems noted. 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 GENERAL: Well developed, well nourished, in no acute distress. HEAD: Normocephalic/atraumatic EYES: PERRLA, EOMI EARS: Ext canals without abnormality, TMs non-bulging and non-erythematous NOSE: Nasal congestion OROPHARYNX: no oral lesions noted, posterior pharynx clear and non-erythematous without noted tonsillar enlargement/erythema/exudates NECK: Supple, no adenopathy LUNGS: Normal breath sounds. No adventitious sounds or accessory muscle use. SpO2<99> CARDIOVASCULAR: Regular rate and rhythm without noted murmurs ABDOMEN: Soft, non-tender, non-distended with bowel sounds. MUSCULOSKELETAL: No tenderness, deformities, or effusions noted on gross inspection. EXTREMITIES: No cyanosis, clubbing or edema. SKIN: Inspection of the skin reveals no rashes NEUROLOGIC: Alert and oriented x 4. Strength and sensation to light touch were grossly intact x 4. Medications Administered Discontinued Medications Generic Name Dose Route Start Last Admin Trade Name Freq PRN Reason Stop Dose Admin Acetaminophen 975 mg 09/09/23 09:32 09/09/23 09:37 Acetaminophen 325 Mg Tablet PO 09/09/23 09:33 975 mg ONCE ONE Administration Benzonatate 200 mg 09/09/23 09:32 09/09/23 09:37 Benzonatate 100 Mg Capsule PO 09/09/23 09:33 200 mg ONCE ONE Administration Ibuprofen 400 mg 09/09/23 09:32 09/09/23 09:37 Ibuprofen 400 Mg Tablet PO 09/09/23 09:33 400 mg ONCE ONE Administration Prednisone 50 mg 09/09/23 09:32 09/09/23 09:37 Prednisone 10 Mg Tablet PO 09/09/23 09:33 50 mg ONCE ONE Administration Medical Decision Making Medical Decision Making MDM Narrative: 43-year-old male with history and clinical presentation, DDX: Viral illness, bronchitis, no clinical suspicion for pneumonia or ACS, postnasal drip. I reviewed all investigations and hematologic indices are negative for leukocytosis/thrombocytopenia and there is a stable normocytic anemia. Chemistry indices negative for ANATOLIY/electrolyte or liver enzyme derangements. Viral testing is negative for COVID-19/RSV/influenza. I sensitivity troponin is undetectable. Chest x-ray negative for infiltrate or venous congestion. Follow-up chest x-ray/viral testing/troponin/INR. INTERVENTION: TYLENOL, IBUPROFEN, PREDNISONE On re-evaluation patient is feeling improved and is otherwise discharged home. Differential Diagnosis Differential Diagnoses: The differential diagnosis associated with the presentation includes Please see the discussion above Admission/Observation Consideration of admission/observation: Escalation of care including admission/observation considered Please see the discussion above Lab Data [facility] Lab Attestation statement: I reviewed the patient's lab results. Please see the discussion above 09/09/23 08:38 09/09/23 08:38 Labs: Lab Results 09/09/23 09/09/23 09/09/23 Range/Units 08:38 09:20 09:42 WBC 5.2 (4.8-10.8) X10*3/uL RBC 4.86 (4.60-5.80) X10*6/uL Hgb 13.2 L (14.0-18.0) g/dl Hct 41.4 L (42.0-52.0) % MCV 85.2 (80.0-98.0) fL MCH 27.2 (27.0-33.0) pg MCHC 31.9 (31.0-36.0) g/dl RDW 14.6 (11.0-16.0) % Plt Count 227 D (160-400) X10*3/uL MPV 10.0 (9.4-12.4) fL Immature Gran % (Auto) 0.4 (0.0-0.4) % Neut % (Auto) 66.0 (45-73) % Lymph % (Auto) 22.7 (20-40) % [place] % (Auto) 7.4 (2-11) % Eos % (Auto) 3.1 (0-4) % Baso % (Auto) 0.4 (0-2) % Lymph # (Auto) 1.2 (1.2-4.9) X10*3/uL [place] # (Auto) 0.4 (0.1-1.2) X10*3/uL Eos # (Auto) 0.2 (0.0-0.4) X10*3/uL Baso # (Auto) 0.0 (0.0-0.2) X10*3/uL Abs Immat Gran (auto) 0.02 (0.00-0.03) X10*3/uL Absolute Neuts (auto) 3.5 (2.0-8.3) x10*3/uL Absolute Nucleated RBC 0.000 (0.0-0.012) X10*3/uL Nucleated RBC % (auto) 0.0 (0.0-0.2) /100WBC PT 12.6 (11.1-13.3) SEC INR 1.0 (0.9-1.1) Sodium 141 (135-145) mmol/L Potassium 3.7 (3.3-5.1) mmol/L Chloride 106 (96-108) mmol/L Carbon Dioxide 24 (22-29) mmol/L Anion Gap 15 (12-20) BUN 12 (9-16) mg/dL Creatinine 0.90 (0.5-1.4) mg/dL Estim Creat Clear Calc 133.1 Estimated GFR > 60 Random Glucose 120 H (60-115) mg/dL Calcium 9.2 (8.4-10.2) mg/dL Total Bilirubin 0.3 (0.0-1.0) mg/dL AST 15 (5-37) U/L ALT 17 (0-40) U/L Alkaline Phosphatase 112 (39-117) U/L Troponin I High Sens < 2.7 (<3.5-35.0) ng/L Total Protein 7.7 (6.5-8.0) g/dL Albumin 4.2 (3.5-5.0) g/dL Influenza Type A (PCR) NEGATIVE (Negative) Influenza Type B (PCR) NEGATIVE (Negative) RSV RNA Qual (PCR) NEGATIVE (Negative) SARS-CoV-2 RNA (RT-PCR) NEGATIVE (Negative) Independent Interpretation I performed an independent interpretation of an: EKG Interpretation: Normal sinus rhythm, HR-94, no STEMI, NC/QRS/QTC is within normal limits, nonspecific T-wave abnormalities in V2/V3/V4 not present in EKG from 2020. Radiology Impression Discussion of test interpretation with radiology: I have reviewed the radiologist's reading. Radiologist Impression: Please see the discussion above External Record Review External record reviewed: Outpatient record, Prior outpatient labs and Prior outpatient radiology Chronic Conditions Patient?s care impacted by: Other Asthma Critical Care Time Critical Care Time Critical Care Time: Yes Total Critical Care Time: 45 Attestation: I personally attest to this time spent taking care of the patient. Discharge Plan Discharge Clinical Impression: Viral illness, Allergic rhinitis, Asthma with bronchitis Instructions: Asthma (ED), Allergic Rhinitis (ED), Viral Syndrome (ED) Additional Instructions: 1. Resume all home medications as prescribed. 2. Complete the course of steroids. 3. Follow-up with your primary care doctor. Return to the ER for any worsening symptoms. Prescriptions: New prednisone 50 mg tablet 50 mg PO DAILY 4 Days Qty: 4 0RF No Action hydrocortisone valerate 0.2 % cream 1 appl topical BID 14 Days Qty: 45 0RF doxepin 10 mg capsule 10 mg PO BEDTIME 90 Days Qty: 90 1RF acetaminophen 500 mg tablet 500 - 1,000 mg PO Q6H PRN (Reason: pain) Qty: 30 0RF cetirizine 10 mg tablet 10 mg PO DAILY 90 Days Qty: 90 1RF montelukast 10 mg tablet 10 mg PO BEDTIME 90 Days Qty: 90 3RF albuterol sulfate 90 mcg/actuation HFA aerosol inhaler 1 inh inhalation QID PRN (Reason: shortness of breath or wheezing) Qty: 8.5 6RF Advair HFA 230-21 mcg/actuation HFA aerosol inhaler 2 puff inhalation BID 30 Days Qty: 1 6RF pantoprazole 40 mg tablet,delayed release (DR/EC) 40 mg PO BID Qty: 60 6RF dicyclomine 10 mg capsule 10 mg PO TID Qty: 90 6RF Referrals: Shannon Rosario MD [Primary Care Provider] - Print Language: Gabonese
[2023-09-09] MEDS: predniSONE 10 MG TABLET 50 MG PO (09:37)
[2023-09-09] MEDS: Ibuprofen 400 MG TABLET PO (09:37)
[2023-09-09] MEDS: Benzonatate 100 MG CAPSULE 200 MG PO (09:37)
[2023-09-09] MEDS: Acetaminophen 325 MG TABLET 975 MG PO (09:37)
--- NOTE | 2023-09-09 09:43 | PC.NURSE ---
medication administered per provider order. effectiveness pending.
[2023-09-09 09:46] LABS: Troponin-I High Sensitivity < 2.7 ng/L (<3.5-35.0)
[2023-09-09 09:56] LABS: Prothrombin Time 12.6 SEC (11.1-13.3)
[2023-09-09 10:49] LABS: Influenza A PCR NEGATIVE (Negative); Influenza B PCR NEGATIVE (Negative); Resp Syncy Virus RNA Qual PCR NEGATIVE (Negative); SARS COV2 PCR INHOUSE NEGATIVE (Negative)
[2023-09-09 11:03] VITALS: BP 121/75; PULSE 85; RESP 15; TEMP 36.7; O2SAT 97
[2023-09-09 11:08] VITALS: BP 121/75; PULSE 85; RESP 15; TEMP 36.7; O2SAT 97
== END 2023-09-09 11:08 | disposition home or self-care (01) ==
PROVIDERS: Emergency Provider Student in an Organized Health Care Education/Training Program; PCP Internal Medicine
DX: B34.9 Viral infection, unspecified (principal); J45.909 Unspecified asthma, uncomplicated; I10 Essential (primary) hypertension
CPT/HCPCS: 0241U; 36415; 71045; 80053; 84484; 85025; 85610; 93005; 99283; 99285

== ENCOUNTER → 2023-09-09 08:16 | Outpatient (BNV) | payer OTHER, SELFPAY | PROVIDERS: Emergency Provider Student in an Organized Health Care Education/Training Program; PCP Internal Medicine; Visit Provider Internal Medicine Cardiovascular Disease | DX: I49.9 Cardiac arrhythmia, unspecified (principal) | CPT/HCPCS: 93010 ==

== ENCOUNTER 2023-11-14 12:17 | Outpatient (AMB) | payer OTHER, SELFPAY ==
[2023-11-14 12:19] VITALS: BP 130/72; PULSE 78; TEMP 36.7; O2SAT 97
--- NOTE | 2023-11-14 12:19 | AM.OFFWIN_ITS ---
Intake Vital Signs 3 11/14/23 12:19 Height 5 ft 9 in BP 130/72 Blood Pressure Location Rt brachial Position Sitting Pulse 78 Pulse Source Pulse Oximeter Temp 98.0 F Temp Source Temporal Artery Scan Pulse Oximetry (%) 97 Intake Visit Reasons: spots on both feet, concerned about circulation Intake Note: pt is here for spots on bilateral feet, concerned about circulation Patient Tobacco Use Status: Never used Tobacco Allergies almond [ALMOND] Allergy (Mild, Verified 11/14/23 12:19) RASH No Known Drug Allergies Allergy (Unknown, Verified 11/14/23 12:19) none Medication List - Last Reconciled 11/14/23 by Ata Castillo MD acetaminophen 500 - 1,000 mg (1 - 2 x 500 mg) PO Q6H PRN albuterol sulfate 90 mcg/actuation 1 inh inhalation QID PRN cetirizine 10 mg PO DAILY 90 days dicyclomine 10 mg PO TID doxepin 10 mg PO BEDTIME 90 days fluticasone furoate-vilanterol 200-25 mcg/dose (Breo Ellipta) 1 inh inhalation DAILY hydrocortisone valerate 0.2% 1 appl topical BID 2 weeks montelukast 10 mg PO BEDTIME 90 days pantoprazole 40 mg PO BID Do you need a note to return to daycare/school/sports/work: No HPI spots on both feet, concerned about circulation 2 HPI0 Details 43-year-old gentleman who noticed red pa tch on his left lower leg Four days ago So came in for evaluation Patient would like to know if he has circulation is proper in his leg His extremities are warm and pink Dorsalis pedis pulses 2+ There is no pain with calf pressure Both knees have full range of motion without any swelling Sensory motor intact Reassurance was provided At this point observation is recommended, patient was instructed to notify PCP if the rash started to spread He has no pain no itching over the patch PFSH Medical History Numbness of right hand Physical exam Breast pain, left Breast pain, right Moderate asthma Impaired glucose tolerance Essential hypertension Mild asthma Left shoulder pain Neck pain Asthma Surgical History History of inguinal hernia repair Family History Father Diabetes Mother Hypothyroid Maternal Aunt Skin cancer Sister No problems noted. 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 Current occupational exposures/hazards: No Cognitive needs: No Hearing needs: No Vision needs: Yes Review of Systems Const All systems reviewed & are unremarkable except as noted in HPI and below Physical Exam Vital Signs: Last Vital Signs Temp 98.0 F 11/14/23 12:19 Pulse 78 11/14/23 12:19 BP 130/72 11/14/23 12:19 Pulse Ox 97 11/14/23 12:19 Const General: no acute distress Orientation/consciousness: patient oriented x3 Eyes General: appearance normal, both eyes and all related structures Resp Effort & Inspection: normal respiratory effort and able to speak in complete sentences Skin Full body images: 2 1. 2 in by 2 in blanching patch lower extremity medial aspect without any signs of infection or inflammation Neuro General: patient oriented x3 Extrem Other: Sensory motor intact, vascular intact, extremities are warm and pink, no edema dorsalis pedis pulse 2 +bilateral Psych Mental Status: mental status grossly normal Assessment & Plan Assessment & Plan (1) Skin disorder: Code(s): L98.9 - Disorder of the skin and subcutaneous tissue, unspecified Plan 43-year-old gentleman who noticed red patch on his left lower leg Four days ago So came in for evaluation Patient would like to know if he has circulation is proper in his leg His extremities are warm and pink Dorsalis pedis pulses 2+ There is no pain with calf pressure Both knees have full range of motion without any swelling Sensory motor intact Reassurance was provided At this point observation is recommended, patient was instructed to notify PCP if the rash started to spread He has no pain no itching over the patch Coding Level of Care Code Est Pt Level 3 (24675) Diagnoses Skin disorder L98.9
== END 2023-11-14 12:38 | disposition home or self-care (01) ==
PROVIDERS: PCP Internal Medicine; Visit Provider Internal Medicine
DX: L98.9 Disorder of the skin and subcutaneous tissue, unspecified (principal)
CPT/HCPCS: 99213

== ENCOUNTER 2023-11-28 08:57 | Outpatient (AMB) | payer OTHER, SELFPAY ==
--- NOTE | 2023-11-28 08:59 | MHC.OFFVIS ---
Vital Signs 11/28/23 09:03 Height 5 ft 9 in Weight 261 lb BMI 38.5 BP 113/57 L Blood Pressure Location Lt brachial Position Sitting Pulse 88 Intake Visit Reasons: 6 month follow up IBS, Gerd Intake Note: Patient follow up for IBS/GERD Patient cc: GERD on and off. Denies any other GI issues. [employer] Required: Yes Accompanied by: Family/Other Allergies almond [ALMOND] Allergy (Mild, Verified 11/28/23 08:59) RASH No Known Drug Allergies Allergy (Unknown, Verified 11/28/23 08:59) none HPI HPI 6 month follow up IBS, Gerd: Details: Assessment & Plan (1) GERD (gastroesophageal reflux disease): Code(s): K21.9 - Gastro-esophageal reflux disease without esophagitis (2) Borborygmus: Code(s): R19.8 - Other specified symptoms and signs involving the digestive system and abdomen (3) Periumbilical abdominal pain: Code(s): R10.33 - Periumbilical pain Plan Indonesian #Johanne Dominique. He is here today with his who is supportive. He received the dicyclomine and has resolved his periumbilical abdominal discomfort and borborygmi. He is now satisfied with his GI regimen including his pantoprazole twice a day with good release of his GERD. Return office visit in 6 months. Medications: Refilled dicyclomine 10 mg PO TID 90 caps 6RF R10.33 - Periumbilical pain, R19.8 - Other specified symptoms and signs involving the digestive system and abdomen pantoprazole 40 mg PO BID 60 tabs 6RF K21.9 - Gastro-esophageal reflux disease without esophagitis TODAY'S VISIT Indonesian #[id number] He is here today with a female family member who is quiet He continues to do well. He continues on his pantoprazole twice a day and his dicyclomine with good control of his GI conditions. Next appt discuss his first colonoscopy as he will be 44 ROV 6 mos. [facility] Medical History (Updated 11/28/23 @ 17:02 by JADEN Tate) Breast pain, right Breast pain, left Numbness of right hand Skin disorder Borborygmus Periumbilical abdominal pain Right knee pain Right elbow pain Right shoulder pain Body aches Cough Upper respiratory symptom Nausea COVID-19 Mild asthma Neck pain Left shoulder pain Soft tissue injury of left shoulder Soft tissue injury of right shoulder Moderate asthma Physical exam Impaired glucose tolerance Essential hypertension Asthma Surgical History History of inguinal hernia repair Family History Father Diabetes Mother Hypothyroid Maternal Aunt Skin cancer Sister No problems noted. Social History Housing: House Alcohol intake: never Patient Tobacco Use Status: Never used Tobacco e-Cigarette/Vaping Use: Never Used Second Hand Smoke Exposure: No service: No Current occupational status: employed Current occupation: work in a [employer] Current occupational exposures/hazards: No Cognitive needs: No Hearing needs: No Vision needs: Yes Review of Systems Const Denies fatigue, Denies fever(s), Denies night sweats, Denies poor appetite and Denies weight loss Eyes Details: glasses Reports requires corrective lenses ENT Reports Normal hearing present, Denies dental pain, Denies dysphagia, Denies hearing loss, Denies mouth pain, Denies odynophagia, Denies throat swelling, Denies tongue swelling and Reports other (Dentition adequate) Card Reports no additional complaints Resp Reports no additional complaints GI Details: Denies abdominal pain, Denies melena, Denies bloating, Denies hematochezia, Denies constipation, Reports GI cramping, Denies dysphagia, Denies excessive flatus, Denies early satiety, Reports heartburn, Denies diarrhea, Denies nausea, Denies odynophagia, Denies vomiting and Denies hematemesis Musc Reports back pain, Reports myalgias and Reports arthralgias Skin/Breast Denies pruritus, Denies lesions, Denies rash and Denies jaundice Neuro Reports Normal hearing present and Denies Abnormal speech present Endo Denies fatigue Aller/Immun Denies throat swelling and Denies tongue swelling Physical Exam Vital Signs: Last Vital Signs Pulse 88 11/28/23 09:03 BP 113/57 L 11/28/23 09:03 BMI result Body Mass Index 38.5 Const General: cooperative, no acute distress, well developed and well groomed Nutritional Appearance: well nourished and obese Orientation/consciousness: oriented to person, oriented to place and oriented to time Limitations: language barrier and ambulation with cane HEENT Head: Yes normocephalic and Yes atraumatic Eyes General: appearance normal, both eyes and all related structures Pupils: Equal, round and reactive pupils present Neck Neck: Yes normal visual inspection and Yes no lymphadenopathy Thyroid: Thyroid normal Resp Effort & Inspection: normal respiratory effort and able to speak in complete sentences Auscultation: clear to auscultation bilaterally Cardio Rate: regular rate Rhythm: regular rhythm Heart sounds: Normal, physiologic split S2 sound present Peripheral pulses: radial pulses present and posterior tibial pulses present GI Inspection: No distended, No Abdominal panniculus present and Yes obesity Palpation (GI): Soft to palpation, nontender, no guarding, not rigid and No hepatosplenomegaly present Percussion: Yes normal to percussion Auscultation: normal bowel sounds Rectal Exam - Male: Yes deferred Skin General skin exam: no rashes or lesions noted, turgor normal, skin not dry, no jaundice, No spider nevi and no striae Rashes: no rashes Nails: normal Neuro General: oriented to person, oriented to place and oriented to time Cranial nerves: Yes Equal, round and reactive pupils present and Yes Normal hearing present Speech: No Abnormal speech present Extrem General: Yes normal to inspection, No clubbing, No cyanosis and No edema Psych Appearance: grossly normal and well kempt Mental Status: mental status grossly normal Speech and movement: Normal speech and movement present Affect: normal affect Attitude: cooperative Thought process: Normal thought process present and not confabulating Thought content: Normal thought content present Insight: Limited insight present (Psych) Judgement: Limited judgement present (Psych) Assessment & Plan Assessment & Plan (1) GERD (gastroesophageal reflux disease): Code(s): K21.9 - Gastro-esophageal reflux disease without esophagitis Category: Medical Plan Indonesian #[id number] He is here today with a female family member who is quiet He continues to do well. He continues on his pantoprazole twice a day and his dicyclomine with good control of his GI conditions. Next appt discuss his first colonoscopy as he will be 44 ROV 6 mos. Medications: Refilled dicyclomine 10 mg PO TID 90 caps 6RF R10.33 - Periumbilical pain, R19.8 - Other specified symptoms and signs involving the digestive system and abdomen pantoprazole 40 mg PO BID 60 tabs 6RF K21.9 - Gastro-esophageal reflux disease without esophagitis Coding Level of Care Code Est Pt Level 3 (75962) Diagnoses GERD (gastroesophageal reflux disease) K21.9
[2023-11-28 09:03] VITALS: BP 113/57; PULSE 88; BMI 38.5
== END 2023-11-28 09:21 | disposition home or self-care (01) ==
PROVIDERS: PCP Internal Medicine; Visit Provider Nurse Practitioner
DX: K21.9 Gastro-esophageal reflux disease without esophagitis (principal)
CPT/HCPCS: 99213

== ENCOUNTER → 2023-11-28 08:57 | Outpatient (BNVA) | payer OTHER, SELFPAY | PROVIDERS: PCP Internal Medicine; Visit Provider Nurse Practitioner | DX: K21.9 Gastro-esophageal reflux disease without esophagitis (principal); K58.9 Irritable bowel syndrome, unspecified; R19.8 Other specified symptoms and signs involving the digestive system and abdomen; R10.33 Periumbilical pain | CPT/HCPCS: 99212 ==

== ENCOUNTER 2024-02-12 09:24 | Outpatient (AMB) | payer OTHER, SELFPAY ==
[2024-02-12 09:32] VITALS: BP 120/84; PULSE 74; TEMP 36.6; O2SAT 98; BMI 38.5
--- NOTE | 2024-02-12 09:32 | AM.OFFWIN_ITS ---
Intake Vital Signs 02/12/24 09:32 Height 5 ft 9 in Weight 261 lb BMI 38.5 BP 120/84 Blood Pressure Location Rt brachial Position Sitting Pulse 74 Pulse Source Pulse Oximeter Temp 97.8 F Temp Source Oral Pulse Oximetry (%) 98 Intake Visit Reasons: EP-lt side ribs pain & sob Intake Note: pt is here for left side rib pain, denies chest pain and states has SOB and used inhaler this morning Patient Tobacco Use Status: Never used Tobacco Allergies almond [ALMOND] Allergy (Mild, Verified 02/12/24 09:34) RASH No Known Drug Allergies Allergy (Unknown, Verified 02/12/24 09:34) none Do you need a note to return to daycare/school/sports/work: Yes HPI HPI Comments History of Present Illness Details 43 y/o male patient who presents to the walk in clinic with c/o left sided Flank/chest pain for 1 week. He denies falls or trauma. Denies SOB, cough or wheezing. [facility] Medical History (Updated 11/28/23 @ 17:02 by JADEN Tate) Breast pain, right Breast pain, left Numbness of right hand Skin disorder Borborygmus Periumbilical abdominal pain Right knee pain Right elbow pain Right shoulder pain Body aches Cough Upper respiratory symptom Nausea COVID-19 Mild asthma Neck pain Left shoulder pain Soft tissue injury of left shoulder Soft tissue injury of right shoulder Moderate asthma Physical exam Impaired glucose tolerance Essential hypertension Asthma Surgical History History of inguinal hernia repair Family History Father Diabetes Mother Hypothyroid Maternal Aunt Skin cancer Sister No problems noted. 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 Current occupational exposures/hazards: No Cognitive needs: No Hearing needs: No Vision needs: Yes Review of Systems Const All systems reviewed & are unremarkable except as noted in HPI and below Physical Exam Vital Signs: Last Vital Signs Temp 97.8 F 02/12/24 09:32 Pulse 74 02/12/24 09:32 BP 120/84 02/12/24 09:32 Pulse Ox 98 02/12/24 09:32 BMI result Body Mass Index 38.5 Const General: cooperative and no acute distress Nutritional Appearance: obese morbidly obese Orientation/consciousness: patient oriented x3 Limitations: language barrier Chest Chest palpation & inspection: normal inspection of the chest and tenderness (LEFT SIDED FLANK TENDERNESS) Breast/axilla palpation: no axillary lymphadenopathy Resp Effort & Inspection: normal respiratory effort Auscultation: clear to auscultation bilaterally, no crackles, no rales, no rhonchi and no wheezes Cardio Heart sounds: S1 normal heart sound present and S2 normal heart sound present Neuro General: patient oriented x3 Psych Speech and movement: Normal speech and movement present Assessment & Plan Assessment & Plan (1) Left-sided chest wall pain: Code(s): R07.89 - Other chest pain Plan: Probably muscular related, will send Flexeril Lidocaine patches for pain relief IceHot Go to ED if pain worse. Medications: New cyclobenzaprine 10 mg PO BEDTIME 14 tabs 0RF R07.89 - Other chest pain lidocaine 5% leave on most painful area for up to 12 hrs 1 patch topical DAILY 30 ea 0RF R07.89 - Other chest pain naproxen 500 mg PO BID 30 tabs 0RF R07.89 - Other chest pain Coding Level of Care Code Est Pt Level 3 (22284) Diagnoses Left-sided chest wall pain R07.89 Time Spent (min) 15
== END 2024-02-12 10:32 | disposition home or self-care (01) ==
PROVIDERS: PCP Internal Medicine; Visit Provider Nurse Practitioner Family
DX: R07.89 Other chest pain (principal)

== ENCOUNTER → 2024-02-12 09:24 | Outpatient (BNVA) | payer OTHER, SELFPAY | PROVIDERS: PCP Internal Medicine; Visit Provider Nurse Practitioner Family | DX: R07.89 Other chest pain (principal) | CPT/HCPCS: 99212 ==

== ENCOUNTER 2024-07-14 10:52 | Outpatient (AMB) | payer OTHER, SELFPAY ==
--- NOTE | 2024-07-14 11:07 | A.OFFPC_ITS ---
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: Building Trades Instructor Name: Shannon Chowdhury MD Information Interpreted: non-clinical & clinical Accompanied by: Significant Other Allergies almond [ALMOND] Allergy (Mild, Verified 07/14/24 11:18) RASH No Known Drug Allergies Allergy (Unknown, Verified 07/14/24 11:18) none Medication List - Last Reconciled 07/14/24 by Shannon Chowdhury MD acetaminophen 500 - 1,000 mg (1 - 2 x 500 mg) PO Q6H PRN albuterol sulfate 90 mcg/actuation 1 inh inhalation QID PRN cetirizine 10 mg PO DAILY 90 days cyclobenzaprine 10 mg PO BEDTIME dicyclomine 10 mg PO TID doxepin 10 mg PO BEDTIME 90 days fluticasone furoate-vilanterol 200-25 mcg/dose (Breo Ellipta) 1 inh inhalation DAILY hydrocortisone valerate 0.2% 1 appl topical BID 2 weeks lidocaine 5% 1 patch topical DAILY montelukast 10 mg PO BEDTIME naproxen 500 mg PO BID pantoprazole 40 mg PO BID Tobacco use date assessed: 07/14/24 Dental Screening Dental Screen Date: 07/14/24 Did you have a dental visit in the last 12 months?: Yes Did you have a dental problem in the last 6 months where you did not have access to dental care?: No Was dental information given to patient?: Patient has dentist HPI HPI Comments History of Present Illness Details The patient is a 44-year-old male presenting with knee pain and difficulty in movement. The patient reports right knee pain that prevents bending and significantly impacts his ability to sit or flower picker items from the floor. He describes the sensation within the knee as shaking or feeling dislocated. The problem began a couple of months ago after the patient experienced multiple incidents of ankle twisting at work, potentially exacerbating the knee issue. The knee can extend and flex, albeit with considerable discomfort. The patient noted that weight-bearing activities are particularly challenging, affecting his daily function. The patient denies any recent injuries or falls but attributes the onset to previous ankle strains. In addition, the patient has a history of asthma and requires medication like Breo and Singulair for management. He takes dicyclomine for dyspepsia and pantoprazole for acid-related symptoms. Allergic rhinitis is managed with cetirizine, and insomnia with doxepin. His blood pressure was noted to be 120/82. While he does not suffer from depression or anxiety, the patient indicates a minor recent weight increase. [facility] Medical History Right knee pain Breast pain, right Breast pain, left Numbness of right hand Skin disorder Borborygmus Periumbilical abdominal pain Right elbow pain Right shoulder pain Body aches Cough Upper respiratory symptom Nausea COVID-19 Mild asthma Neck pain Left shoulder pain Soft tissue injury of left shoulder Soft tissue injury of right shoulder Moderate asthma Physical exam Impaired glucose tolerance Essential hypertension Asthma Surgical History History of inguinal hernia repair Family History Father Diabetes Mother Hypothyroid Maternal Aunt Skin cancer Sister No problems noted. 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 1. Little interest or pleasure in doing things: not at all 2. Feeling down, depressed, or hopeless: not at all 3. Trouble falling or staying asleep, or sleeping too much: not at all 4. Feeling tired or having little energy: not at all 5. Poor appetite or overeating: not at all 6. Feeling bad about yourself - or that you are a failure or have let yourself or your family down: not at all 7. Trouble concentrating on things, such as reading the newspaper or watching television: not at all 8. Moving or speaking so slowly that other people could have noticed. Or the opposite - being so fidgety or restless that you have been moving around a lot more than usual: not at all 9. Thoughts that you would be better off or of hurting yourself in some way: not at all Total score: 0 Depression Screening Interpretation: Negative Depression Screening Done: Yes 33221 - PHQ-9 Billing: Yes Source: Developed by Drs. Naif Torres, Jesenia Grant, Manoj Ledbetter and colleagues, with an educational danitza from [employer]. Thrive Questionnaire Date Thrive assessed: 07/14/24 I am a: Patient What is your living situation today?: I have a steady place to live Within the past 12 months, did the food you bought not last and you didn't have the money to get more?: Never true Within the past 12 months, did you worry whether your food would run out before you got money to buy more?: Never true Do you have trouble paying for medicines?: No Do you have trouble getting transportation to medical appointments?: No Do you have trouble paying your heating and electricity bill?: No Do you have trouble taking care of your child, family member or friend?: No Do you have trouble with day-to-day activities such as bathing, preparing meals, shopping, managing finances, etc.?: No Are you currently unemployed and looking for a job?: No Are you interested in more education?: No Please select the resources that you would like help with: None Currently or been in a relationship where the following occur: No concerns reported THRIVE Score: 0 AUDIT C Alcohol Use Questionnaire (AUDIT-C) 1. How often do you have a drink containing alcohol?: Never Total Score: 0 Score Reviewed/Action Taken: No PRESTON-7 AMB Questionnaire PRESTON-7 Date PRESTON - 7 assessed: 07/14/24 Feeling nervous, anxious, or on edge: 0 = Not at all Not being able to stop or control worryin = Not at all Worrying too much about different things: 0 = Not at all Trouble relaxin = Not at all Being so restless that it is hard to sit still: 0 = Not at all Becoming easily annoyed or irritable: 0 = Not at all Feeling afraid as if something awful might happen: 0 = Not at all Total PRESTON-7 score (0-4 normal; 5-9 mild; 10-14 moderate; 15-21 severe): 0 Source: Developed by Drs. Naif Torres, Jesenia Grant, Manoj Ledbetter and colleagues, with an educational danitza from [employer]. PRESTON-7 Assessment Billing PRESTON-7 Assessment Tool: PRESTON-7 Assessment 36057 Review of Systems Const All systems reviewed & are unremarkable except as noted in HPI and below Card Denies chest pain at rest, Denies chest pain with activity, Denies edema, Denies irregular heart rhythm, Denies claudication, Denies dyspnea, Denies dyspnea on exertion, Denies orthopnea, Denies paroxysmal nocturnal dyspnea and Denies slow heart rate Resp Denies cough, Denies dyspnea and Denies dyspnea on exertion GI Denies abdominal pain, Denies change in bowel habits, Denies excessive flatus, Denies nausea and Denies vomiting Musc Denies atrophy, Denies deformity, Reports arthralgias and Denies limited range of motion Physical exam (Primary Care) Vital Signs: Last Vital Signs BP 120/82 07/14/24 11:10 BMI result Body Mass Index 39.0 BMI Assessment/Plan discussion: High BMI High, discussed plan: lifestyle, weight reduction, dietary and physical activity Tobacco/Smoking Status: Tobacco use Status Tobacco use date assessed 07/14/24 07/14/24 11:10 Patient Tobacco Use Status Never used Tobacco 07/14/24 11:10 e-Cigarette/Vaping Use Never Used 07/14/24 11:10 PHQ-9: PHQ-9 Score PHQ-9: Total score 0 07/14/24 11:10 Depression Screening Interpretation: Negative Thrive Assessment: Date of Thrive Assessment Date Thrive assessed 07/14/24 07/14/24 11:10 Currently or been in a relationship where the following occur: No concerns reported Resp Effort & Inspection: normal respiratory effort Auscultation: clear to auscultation bilaterally Cardio Jugular venous distension: no JVD Rate: regular rate Rhythm: regular rhythm Heart sounds: S1 normal heart sound present and S2 normal heart sound present Extrem General: Yes full ROM Coding Level of Care Code Est Pt Level 4 (55601) Complex EM visit Add On G2211 Diagnoses Right knee pain M25.561 Allergic rhinitis J30.9 Asthma J45.909 GERD (gastroesophageal reflux disease) K21.9 Additional Codes PHQ-9 - 26094 - PHQ-9 Billing: Yes ([id number]) PRESTON-7 Assessment Billing - PRESTON-7 Assessment Tool: PRESTON-7 Assessment 17340 ([id number]) Time Spent (min) 21 Assessment & Plan Assessment & Plan (1) Right knee pain: Code(s): M25.561 - Pain in right knee Category: Medical (2) Allergic rhinitis: Code(s): J30.9 - Allergic rhinitis, unspecified Category: Medical (3) Asthma: Code(s): J45.909 - Unspecified asthma, uncomplicated Category: Medical (4) GERD (gastroesophageal reflux disease): Code(s): K21.9 - Gastro-esophageal reflux disease without esophagitis Category: Medical Plan Evaluation of the patient's knee pain is prioritized by securing an X-ray to determine structural causes. Continued management of knee pain with NSAIDs is advised. The upcoming orthopedic consultation will assist in defining further management strategies. Chronic conditions such as asthma and allergic rhinitis should be managed with the existing medication regimen to maintain stability. Dyspeptic symptoms are adequately controlled with the current medications, and no adjustments are necessary at this time. The patient's vital signs, including blood pressure, are stable and should continue to be monitored. Patient was informed and verbally consented to the use of an ambient scribe for clinic note documentation during this visit. I discussed with the patient the likely diagnosis of osteoarthritis of the knee, emphasizing the importance of diagnostic imaging to further assess knee structure. We reviewed the management options for knee pain, including the use of NSAIDs and potential future interventions following the orthopedic consultation. The risks and benefits of current asthma and allergic rhinitis medications were reiterated, reinforcing adherence to the regimens to avoid exacerbations. Follow-up plans include evaluating the outcomes of any diagnostic procedures and the orthopedic recommendation. Orders: Orders XR knee RT 2V Today M25.561 - Pain in right knee Patient Instructions: - Obtain an X-ray of your right knee as discussed. - Continue taking naproxen as needed for knee pain. - Maintain asthma treatment with Breo and Singulair. - Continue current medications for allergic rhinitis and dyspepsia. - Follow up with Orthopedics as scheduled. - Monitor knee symptoms and report any worsening or new symptoms.
[2024-07-14 11:10] VITALS: BP 120/82; BMI 39.0
== END 2024-07-14 11:27 | disposition home or self-care (01) ==
LOC: HO.HMCH 10:53
PROVIDERS: PCP Internal Medicine; Visit Provider Internal Medicine
DX: M25.561 Pain in right knee (principal); J30.9 Allergic rhinitis, unspecified; J45.909 Unspecified asthma, uncomplicated; K21.9 Gastro-esophageal reflux disease without esophagitis

== ENCOUNTER → 2024-07-14 10:52 | Outpatient (BNVA) | payer OTHER, SELFPAY | PROVIDERS: PCP Internal Medicine; Visit Provider Internal Medicine | DX: J45.909 Unspecified asthma, uncomplicated (principal); M25.561 Pain in right knee; K21.9 Gastro-esophageal reflux disease without esophagitis | CPT/HCPCS: 96127; 99212 ==

== ENCOUNTER 2024-07-16 08:00 | Outpatient (REF) | payer OTHER, SELFPAY ==
--- NOTE | ~2024-07-16 | XR_ITS ---
CLINICAL HISTORY: M25.561 - Pain in right knee 2 view right knee Comparison: None Findings: No fractures or dislocations. No significant loss of joint space, osteophytes, or erosions. No joint effusion. No radiopaque foreign body. IMPRESSION: 1. No acute findings. No significant degenerative change. This document has been electronically signed by: Dariel Goodman MD on 07/24/2024 08:06:01
[2024-07-16 08:12] LABS: MANUAL DIFF FLAG NO
[2024-07-16 08:49] LABS: Basophils Percent Auto 0.3 % (0-2); Eosinophils Absolute Auto 0.1 X10*3/uL (0.0-0.4); Eosinophils Percent Auto 1.2 % (0-4); Hematocrit 39.6 % (42.0-52.0); Hemoglobin 12.4 g/dl (14.0-18.0); Imm Gran Abs Auto 0.03 X10*3/uL (0.00-0.03); Imm Gran Pct Auto 0.3 % (0.0-0.4); Lymphocytes Absolute Auto 2.4 X10*3/uL (1.2-4.9); Lymphocytes Percent Auto 27.4 % (20-40); Mean Corpuscular HGB Conc 31.3 g/dl (31.0-36.0); Mean Corpuscular Hemoglobin 26.7 pg (27.0-33.0); Mean Corpuscular Volume 85.3 fL (80.0-98.0); Mean Platelet Volume 10.8 fL (9.4-12.4); Monocytes Absolute Auto 0.5 X10*3/uL (0.1-1.2); Monocytes Percent Auto 5.9 % (2-11); Neutrophils Absolute Auto 5.6 x10*3/uL (2.0-8.3); Neutrophils Percent Auto 64.9 % (45-73); Platelet Count 293 X10*3/uL (160-400); Red Blood Count 4.64 X10*6/uL (4.60-5.80); Red Cell Distribution Width 14.4 % (11.0-16.0); White Blood Count 8.6 X10*3/uL (4.8-10.8)
[2024-07-16 09:21] LABS: Alanine Aminotransferase 27 U/L (0-40); Albumin Level 4.4 g/dL (3.5-5.0); Alkaline Phosphatase 112 U/L (39-117); Anion Gap 10 (12-20); Aspartate Amino Transferase 22 U/L (5-37); Bilirubin Total 0.4 mg/dL (0.0-1.0); Blood Urea Nitrogen 11 mg/dL (9-16); Calcium 9.5 mg/dL (8.4-10.2); Carbon Dioxide 29 mmol/L (22-29); Chloride 108 mmol/L (96-108); Cholesterol 118 mg/dL (<200); Estimated Glomerular Filt Rate > 60; Glucose Fasting 107 mg/dL (60-99); HDL Cholesterol 44 mg/dL (>40); Iron 62 mcg/dL (45-160); LDL Cholesterol Calculated 57 mg/dL (<100); Percent Iron Saturation 20 % (15-50); Potassium 4.2 mmol/L (3.3-5.1); Sodium 143 mmol/L (135-145); Total Iron Binding Capacity 311 mcg/dL (228-428); Total Protein 7.6 g/dL (6.5-8.0); Triglycerides 86 mg/dL (<150); Unsaturated Iron Binding 249 ug/dL
== END 2024-07-16 08:01 | disposition home or self-care (01) ==
LOC: HO.XRAY 08:00
PROVIDERS: PCP Internal Medicine; Visit Provider Internal Medicine
DX: E66.9 Obesity, unspecified (principal); Z68.38 Body mass index [BMI] 38.0-38.9, adult; E55.9 Vitamin D deficiency, unspecified; D64.9 Anemia, unspecified; M25.561 Pain in right knee
CPT/HCPCS: 36415; 73560; 80053; 80061; 82306; 83540; 85025

== ENCOUNTER → 2024-07-16 08:17 | Outpatient (BNV) | payer OTHER, SELFPAY | PROVIDERS: PCP Internal Medicine; Visit Provider Radiology Vascular & Interventional Radiology | DX: M25.561 Pain in right knee (principal) | CPT/HCPCS: 73560 ==

== ENCOUNTER 2024-08-15 08:58 | Outpatient (REF) | payer OTHER, SELFPAY ==
--- NOTE | ~2024-08-15 | XR_ITS ---
EXAMINATION: XR KNEE 1-2 VIEWS RIGHT HISTORY: M25.569 - Pain in unspecified knee COMPARISON: Comparison is made with the prior examination dated 07/16/2024. FINDINGS: Standing AP views of both knees and an additional sunrise patellar view of the right knee are submitted. Osseous mineralization is normal. There is no fracture or dislocation. The joint spaces are preserved. The soft tissues are unremarkable. XR/XR knee RT 2V IMPRESSION: Unremarkable examination of the right knee and standing AP view of the left knee. Electronically signed by: Naif Ortiz MD 08/15/2024 03:39 PM EDT
== END 2024-08-15 08:59 | disposition home or self-care (01) ==
LOC: HO.HOSX 08:58
PROVIDERS: Visit Provider Physician Assistant
DX: M25.561 Pain in right knee (principal); S83.241A Other tear of medial meniscus, current injury, right knee, initial encounter
CPT/HCPCS: 20610; 73560; 99212; J1010; J2003

== ENCOUNTER 2024-08-15 12:24 | Outpatient (AMB) | payer OTHER, SELFPAY ==
--- NOTE | 2024-08-15 12:38 | A.OFFVIS_ITS ---
Vital Signs 08/15/24 13:00 Height 5 ft 9 in Weight 264 lb BMI 39.0 Intake Visit Reasons: Newprob-Right knee pain/weakness Intake Note: Bharat is a 44 year old male who presents today with partner for a evaluation of his right knee pain. Hx of taking a miss step and he felt his ankle jerk and his knee started to have pain. Patient reports ongoing pain for about 5 months. He states that his pain is on the medial aspect of the knee and it moves to the back of his knee. He also notices swelling after he walked. Patient notices that his pain is worse when he is kneeling, bending and walking. He states using rolling gel with mild relief. IMPRESSION: 1. No acute findings. No significant degenerative change. 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 Sukhi Hamilton is a 44-year-old male who presents to the office today for evaluation of right knee pain. He reports that the pain has been present for the past 5 months and started after he was going down stairs and missed a step. He twisted his ankle and jammed his knee. His pain is located along the medial aspect of the knee. He notices an increase in edema after long periods of ambulation. Increase in pain with kneeling bending and walking. [facility] Medical History Right knee pain Breast pain, right Breast pain, left Numbness of right hand Skin disorder Borborygmus Periumbilical abdominal pain Right elbow pain Right shoulder pain Body aches Cough Upper respiratory symptom Nausea COVID-19 Mild asthma Neck pain Left shoulder pain Soft tissue injury of left shoulder Soft tissue injury of right shoulder Moderate asthma Physical exam Impaired glucose tolerance Essential hypertension Asthma Surgical History History of inguinal hernia repair Family History Father Diabetes Mother Hypothyroid Maternal Aunt Skin cancer Sister No problems noted. 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 No ecchymosis, erythema or joint effusion. Range of motion 0-120. Tenderness to palpation along the medial joint line. Positive Mirian's medial joint line. Negative anterior drawer. NVI. Office Procedures AMB Joint Injection/Aspiration Joint Injection/Aspiration Primary Site: right knee Prep: site was prepped using aseptic technique, ethochloride spray was applied and injection warnings given Injected: 80 mg of, DepoMedrol, with 8 mL of (2% plain lido ) and in the joint Approach Used: anterolateral Procedure: The patient tolerated the procedure well, but had some pain with the injection and there was some relief with the local anesthesia Coding 16066 - Large joint Procedure code (CPT) selection complete Assessment & Plan Assessment & Plan (1) Acute medial meniscus tear of right knee: Code(s): S83.241A - Other tear of medial meniscus, current injury, right knee, initial encounter Category: Medical Plan While in the office today, the patient is demonstrating symptoms on physical exam associated with a medial meniscal tear. I discussed surgical versus conservative treatment. The patient was offered a cortisone injection in the right knee with 80 mg of DepoMedrol. The patient was explained the risks, benefits, and alternatives to receiving this injection. After receiving consent for the injection, the patient had the procedure done while in the office today. The patient tolerated the procedure well with no complications. As the patient continues to have ongoing pain the next step would be an MRI to further evaluate the integrity of the right knee and the surrounding structures. Follow-up will be p.r.n., or sooner if needed. X-rays of the right knee which were obtained while in the office today as well as additional views obtained on 07/16/2024 and were reviewed by me, Tequila Millard PA-C, revealed no acute fracture or dislocation. Orders: Orders XR knee RT 2V Today M25.569 - Pain in unspecified knee XR knee LT 1V Today M25.569 - Pain in unspecified knee Coding Level of Care Code New Pt Level 3 (17642) Diagnoses Acute medial meniscus tear of right knee S83.241A CPT Codes Coding - 84823 Large joint: 68520 - Large joint ([id number])
[2024-08-15 13:00] VITALS: BMI 39.0
== END 2024-08-15 13:31 | disposition home or self-care (01) ==
LOC: HO.HOS 12:32
PROVIDERS: PCP Internal Medicine; Visit Provider Physician Assistant
DX: S83.241A Other tear of medial meniscus, current injury, right knee, initial encounter (principal)
CPT/HCPCS: 20610; 99213

== ENCOUNTER → 2024-08-15 12:49 | Outpatient (BNV) | payer OTHER, SELFPAY | PROVIDERS: Visit Provider Radiology Diagnostic Radiology | DX: M25.561 Pain in right knee (principal) | CPT/HCPCS: 73560 ==

== ENCOUNTER 2024-08-20 10:04 | Outpatient (AMB) | payer OTHER, SELFPAY ==
--- NOTE | 2024-08-20 10:30 | A.OFFPC_ITS ---
Vital Signs 08/20/24 10:31 Height 5 ft 9 in Weight 259 lb BMI 38.2 BP 120/80 Blood Pressure Location Lt brachial Position Sitting Intake Visit Reasons: annual exam Intake Note: Patient here for a physical exam Departmental Secretary Required: No Accompanied by: Self / Same As Patient Allergies almond [ALMOND] Allergy (Mild, Verified 08/20/24 11:10) RASH No Known Drug Allergies Allergy (Unknown, Verified 08/20/24 11:10) none Medication List - Last Reconciled 08/20/24 by Shannon Chowdhury MD acetaminophen 500 - 1,000 mg (1 - 2 x 500 mg) PO Q6H PRN albuterol sulfate 90 mcg/actuation 1 inh inhalation QID PRN cetirizine 10 mg PO DAILY 90 days cholecalciferol (vitamin D3) 25 mcg PO DAILY 90 days cyclobenzaprine 10 mg PO BEDTIME dicyclomine 10 mg PO TID doxepin 10 mg PO BEDTIME 90 days fluticasone furoate-vilanterol 200-25 mcg/dose (Breo Ellipta) 1 inh inhalation DAILY hydrocortisone valerate 0.2% 1 appl topical BID 2 weeks lidocaine 5% 1 patch topical DAILY montelukast 10 mg PO BEDTIME naproxen 500 mg PO BID pantoprazole 40 mg PO BID Tobacco use date assessed: 07/14/24 Dental Screening Dental Screen Date: 07/14/24 HPI HPI Comments History of Present Illness Details The patient is a 44-year-old male presenting with a wellness examination and management of chronic conditions. He has early-stage prediabetes, as indicated by a fasting glucose level of 107 mg/dL, and is exploring dietary and lifestyle interventions for management. Depression symptoms are present, scoring 10/27 on PHQ-9, with consideration of bupropion therapy for both mood improvement and weight management. Asthma is well- controlled under pulmonology care with Breo, with no active symptoms noted. There is a diagnosis of Vitamin D deficiency, with a current level of 19 ng/mL, advocating for supplementation. Allergy to almonds is noted, and allergic symptoms are managed with cetirizine. Discussions about suspected osteoarthritis, related knee pain, and potential MRI or surgical intervention are noted, highlighting a history of knee injections providing temporary relief. The patient is currently managing GERD with pantoprazole and is actively engaged in obesity management through dietary modifications and portion control strategies. - Pneumonia vaccine was administered ove r five years ago; advised for re- administration as the patient is under 65 years of age. - Tetanus vaccination is up to date, las t received in 2018. - High blood pressure is well-managed. - Cholesterol levels are noted to be wit hin the normal range. - Vitamin D supplementation is recommend ed to address deficiency. - Discussion regarding diet and exercise as a lifestyle modification for weight management. - Emphasis on controlled portion sizes a nd avoidance of high-calorie foods. [facility] Medical History (Updated 08/20/24 @ 17:00 by Shannon Chowdhury MD) Physical exam Right knee pain Breast pain, right Breast pain, left Numbness of right hand Skin disorder Borborygmus Periumbilical abdominal pain Right elbow pain Right shoulder pain Body aches Cough Upper respiratory symptom Nausea COVID-19 Mild asthma Neck pain Left shoulder pain Soft tissue injury of left shoulder Soft tissue injury of right shoulder Moderate asthma Impaired glucose tolerance Essential hypertension Asthma Surgical History History of inguinal hernia repair Family History Father Diabetes Mother Hypothyroid Maternal Aunt Skin cancer Sister No problems noted. 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 1. Little interest or pleasure in doing things: several days 2. Feeling down, depressed, or hopeless: several days 3. Trouble falling or staying asleep, or sleeping too much: more than half the days 4. Feeling tired or having little energy: more than half the days 5. Poor appetite or overeating: several days 6. Feeling bad about yourself - or that you are a failure or have let yourself or your family down: not at all 7. Trouble concentrating on things, such as reading the newspaper or watching television: not at all 8. Moving or speaking so slowly that other people could have noticed. Or the opposite - being so fidgety or restless that you have been moving around a lot more than usual: not at all 9. Thoughts that you would be better off or of hurting yourself in some w ay: not at all Total score: 7 Depression Screening Interpretation: Positive Depression Screening Follow-up: Existing condition and Follow-up Visit Requested Depression Screening Done: Yes 05921 - PHQ-9 Billing: Yes Source: Developed by Drs. Naif Torres, Jesenia Grant, Manoj Ledbetter and colleagues, with an educational danitza from [employer]. Thrive Questionnaire Date Thrive assessed: 07/14/24 I am a: Patient What is your living situation today?: I have a steady place to live Within the past 12 months, did the food you bought not last and you didn't have the money to get more?: Sometimes True Within the past 12 months, did you worry whether your food would run out before you got money to buy more?: Sometimes True Do you have trouble paying for medicines?: Yes Do you have trouble getting transportation to medical appointments?: No Do you have trouble paying your heating and electricity bill?: Yes Do you have trouble taking care of your child, family member or friend?: No Do you have trouble with day-to-day activities such as bathing, preparing meals, shopping, managing finances, etc.?: No Are you currently unemployed and looking for a job?: No Are you interested in more education?: No Please select the resources that you would like help with: Food Currently or been in a relationship where the following occur: No concerns reported THRIVE Score: 3 AUDIT C Alcohol Use Questionnaire (AUDIT-C) 1. How often do you have a drink containing alcohol?: Never Total Score: 0 PRESTON-7 AMB Questionnaire PRESTON-7 Date PRESTON - 7 assessed: 07/14/24 Feeling nervous, anxious, or on edge: 1 = Several days Not being able to stop or control worryin = Several days Worrying too much about different things: 1 = Several days Trouble relaxin = Several days Being so restless that it is hard to sit still: 1 = Several days Becoming easily annoyed or irritable: 0 = Not at all Feeling afraid as if something awful might happen: 1 = Several days Total PRESTON-7 score (0-4 normal; 5-9 mild; 10-14 moderate; 15-21 severe): 6 Source: Developed by Drs. Naif Torres, Jesenia Grant, Manoj Ledbetter and colleagues, with an educational danitza from [employer]. PRESTON-7 Assessment Billing PRESTON-7 Assessment Tool: PRESTON-7 Assessment 85365 Review of Systems Const All systems reviewed & are unremarkable except as noted in HPI and below Card Denies chest pain at rest, Denies chest pain with activity, Denies edema, Denies irregular heart rhythm, Denies claudication, Denies dyspnea, Denies dyspnea on exertion, Denies orthopnea, Denies paroxysmal nocturnal dyspnea and Denies slow heart rate Resp Denies cough, Denies dyspnea and Denies dyspnea on exertion GI Denies abdominal pain, Denies change in bowel habits, Denies excessive flatus, Denies nausea and Denies vomiting Neuro Denies behavioral changes and Denies lack of coordination Psych Denies behavioral changes Physical exam (Primary Care) Vital Signs: Last Vital Signs BP 120/80 08/20/24 10:31 BMI result Body Mass Index 38.2 BMI Assessment/Plan discussion: High BMI High, discussed plan: lifestyle, weight reduction, dietary and physical activity Tobacco/Smoking Status: Tobacco use Status Tobacco use date assessed 07/14/24 08/20/24 10:45 Patient Tobacco Use Status Never used Tobacco 08/20/24 10:45 e-Cigarette/Vaping Use Never Used 08/20/24 10:45 PHQ-9: PHQ-9 Score PHQ-9: Total score 7 08/20/24 11:15 Depression Screening Interpretation: Positive Depression Screening Follow-up: Existing condition and Follow-up Visit Requested Thrive Assessment: Date of Thrive Assessment Date Thrive assessed 07/14/24 08/20/24 10:45 Currently or been in a relationship where the following occur: No concerns reported HENMT Head: Yes normal to inspection, Yes normocephalic and Yes atraumatic Ears: external ears normal Eyes General: appearance normal, both eyes and all related structures Eyelids: Yes eyelids normal Conjunctivae: conjunctivae normal Neck Neck: Yes normal visual inspection and Yes supple Resp Effort & Inspection: normal respiratory effort Auscultation: clear to auscultation bilaterally Cardio Jugular venous distension: no JVD Rate: regular rate Rhythm: regular rhythm Heart sounds: S1 normal heart sound present and S2 normal heart sound present GI Inspection: Yes normal to inspection Palpation (GI): Soft to palpation and nontender Auscultation: normal bowel sounds Skin General skin exam: no rashes or lesions noted Neuro General: no focal motor deficits Extrem General: Yes full ROM Psych Appearance: grossly normal Immunizations pneumoc 20-byron conj-dip cr(PF) 0.5 mL IM syringe Performing Provider: Shannon Chowdhury MD Performing Location: [facility] Administered by: ZI Cerna on 08/20/24 11:13 Dose Route Admin Location Dispensed Lot Number Expiration Date NDC Cotton Ball Machine Tender 0.5 mL IM Right Deltoid 0.5 mL [id number] 06/14/25 [id number] [employer] VIS Given Date VIS Provided VIS Publication Date 08/20/24 Single Vaccine 22 Eligibility Eligibility Date Funding Source Not [facility] Eligible 08/20/24 Private Coding Level of Care Code Est Pt Prev Care 40-64y(02964) Diagnoses Physical exam Z00.00 Mild recurrent major depression F33.0 Additional Codes PRESTON-7 Assessment Billing - PRESTON-7 Assessment Tool: PRESTON-7 Assessment 85971 ([id number]) PHQ-9 - 22200 - PHQ-9 Billing: Yes ([id number]) Time Spent (min) 30 Assessment & Plan Assessment & Plan (1) Physical exam: Code(s): Z00.00 - Encounter for general adult medical examination without abnormal findings Category: Medical (2) Mild recurrent major depression: Code(s): F33.0 - Major depressive disorder, recurrent, mild Category: Medical Plan The management of the patient's prediabetes will involve accommodating dietary modifications aimed at caloric reduction and portion control strategies. Bupropion is prescribed for depression, with an additional focus on aiding weight management. Asthma is continuously managed through [facility], supported by pulmonology follow-up. Vitamin D levels require supplementation. We deliberated a potential MRI and surgical consideration for knee pain, contingent upon symptomology persistence. GERD remains controlled with pantoprazole with continued weight management recommendations. Reviewed vaccinations aligning with current public health guidelines, particularly emphasizing updating the pneumonia vaccine. Patient was informed and verbally consented to the use of an ambient scribe for clinic note documentation during this visit. I discussed the diagnosis and management of prediabetes, the prescription of bupropion for depression and weight management, and the ongoing asthma therapy with Breo. We reviewed Vitamin D supplementation necessity. Potential intervention for knee osteoarthritis, including MRI and surgery, was considered pending further evaluation. Emphasis on the continuation of GERD management was reinforced. We planned for weight management strategies and dietary habits, continuing focus on vaccination updates, notably the pneumonia vaccine. Future follow-up discussions and potential revisions in therapy were carefully conveyed. Orders: Orders Pneumococcal 20 Immunization Today Z23 - Encounter for immunization Medications: New bupropion HCl XL 150 mg PO QAM 90 tabs 1RF 90 days F33.0 - Major depressive disorder, recurrent, mild Patient Instructions: - Begin Vitamin D supplementation as advised. - Start the prescribed medication bupropion. - Follow dietary recommendations for weight management. - Avoid almonds due to allergy. - Continue asthma management with Breo. - Maintain GERD management with Pantoprazole. - Await further instructions regarding knee pain and potential MRI. - Discuss any changes or issues with medications or symptoms during follow-up visits. - Update pneumonia vaccination as recommended.
[2024-08-20 10:31] VITALS: BP 120/80; BMI 38.2
== END 2024-08-20 11:25 | disposition home or self-care (01) ==
LOC: HO.HMCH 10:05
PROVIDERS: PCP Internal Medicine; Visit Provider Internal Medicine
DX: Z00.00 Encounter for general adult medical examination without abnormal findings (principal); F33.0 Major depressive disorder, recurrent, mild; Z23 Encounter for immunization

== ENCOUNTER → 2024-08-20 10:04 | Outpatient (BNVA) | payer OTHER, SELFPAY | PROVIDERS: PCP Internal Medicine; Visit Provider Internal Medicine | DX: Z00.00 Encounter for general adult medical examination without abnormal findings (principal); Z23 Encounter for immunization; F33.0 Major depressive disorder, recurrent, mild; K21.9 Gastro-esophageal reflux disease without esophagitis; Z79.899 Other long term (current) drug therapy | CPT/HCPCS: 90471; 90677; 96127; 99396 ==

== ENCOUNTER 2024-09-03 13:55 | Outpatient (AMB) | payer OTHER, SELFPAY ==
[2024-09-03 14:03] VITALS: BP 114/82; PULSE 77; O2SAT 96; BMI 38.4
--- NOTE | 2024-09-03 14:03 | A.OFFVIS_ITS ---
Vital Signs 09/03/24 14:03 Height 5 ft 9 in Weight 260 lb 2.327 oz BMI 38.4 BP 114/82 Blood Pressure Location Lt brachial Position Sitting Pulse 77 Pulse Source Pulse Oximeter Pulse Oximetry (%) 96 Oxygen Delivery Method Room Air Intake Visit Reasons: asthma Chest Painting Leader Required: Yes Chest Painting Leader Services: Chest Painting Leader Present Chest Painting Leader Name: katerina [id number] Allergies almond [ALMOND] Allergy (Mild, Verified 09/03/24 14:06) RASH No Known Drug Allergies Allergy (Unknown, Verified 09/03/24 14:06) none HPI HPI asthma: Details: 44-year-old gentleman, lifetime non smoker, followed for underlying moderate to severe persistent allergic asthma and environmental allergies.? Patient continues to use Breo, Singulair, and albuterol MDI with excellent control of his underlying asthma symptom.? He denies any recent exacerbations. He continues to use Singulair and Zyrtec for his underlying environmental allergies as needed. Today he complains of worsening eye itching secondary to seasonal allergies. [facility] Medical History (Updated 08/20/24 @ 17:00 by Shannon Chowdhury MD) Physical exam Right knee pain Breast pain, right Breast pain, left Numbness of right hand Skin disorder Borborygmus Periumbilical abdominal pain Right elbow pain Right shoulder pain Body aches Cough Upper respiratory symptom Nausea COVID-19 Mild asthma Neck pain Left shoulder pain Soft tissue injury of left shoulder Soft tissue injury of right shoulder Moderate asthma Impaired glucose tolerance Essential hypertension Asthma Surgical History History of inguinal hernia repair Family History Father Diabetes Mother Hypothyroid Maternal Aunt Skin cancer Sister No problems noted. 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 Current occupational exposures/hazards: No Cognitive needs: No Hearing needs: No Vision needs: Yes Review of Systems Const Denies chills, Denies fatigue, Denies fever(s), Denies weight gain and Denies weight loss Eyes Denies blurry vision and Denies itchy eyes ENT Denies dizziness Card Denies chest pain, Denies leg edema, Denies lightheadedness, Denies palpitations, Denies dyspnea on exertion, Denies orthopnea and Denies other Resp Denies cough, Denies dyspnea on exertion and Denies wheezing GI Denies hematochezia and Denies change in stool character Musc Denies abnormal gait, Denies muscle weakness, Denies numbness, Denies radiating pain into limb and Denies tingling Skin/Breast Denies rash Neuro Denies abnormal gait, Denies dizziness, Denies memory loss, Denies numbness and Denies tingling Psych Denies abnormal sleep pattern, Denies anxiety and Denies memory loss Endo Denies fatigue and Denies palpitations Brandon/Lymph Denies easy bruising Aller/Immun Denies itchy eyes, Denies seasonal rhinorrhea and Denies wheezing Physical Exam Vital Signs: Last Vital Signs Pulse 77 09/03/24 14:03 BP 114/82 09/03/24 14:03 Pulse Ox 96 09/03/24 14:03 Oxygen Delivery Method Room Air 09/03/24 14:03 BMI result Body Mass Index 38.4 Const General: no acute distress and alert Nutritional Appearance: obese Orientation/consciousness: Other orientation findings ( oriented) HEENT Head: Yes atraumatic Eyes General: appearance normal, both eyes and all related structures Sclerae: sclerae normal EOM: EOMs intact bilaterally Neck Neck: Yes supple Lymphatic: no lymphadenopathy noted Resp Effort & Inspection: normal respiratory effort and no use of accessory muscles Auscultation: clear to auscultation bilaterally Cardio Rate: regular rate Rhythm: regular rhythm Heart sounds: no gallops, no murmurs and no rubs Skin General skin exam: other ( warm) Extrem General: No clubbing, No cyanosis and No edema Assessment & Plan Assessment & Plan (1) Asthma: Code(s): J45.909 - Unspecified asthma, uncomplicated Category: Medical Plan: Well controlled on current regimen of Breo, Singulair, and albuterol MDI. Continue current regimen. (2) Environmental allergies: Code(s): Z91.09 - Other allergy status, other than to drugs and biological substances Category: Medical Plan: Controlled on Zyrtec except eye symptoms, will add Pataday. Medications: New olopatadine 0.2% (Pataday Once Daily Relief) 1 drp ophthalmic (eye) QAM 2.5 mL 3RF Refilled albuterol sulfate 90 mcg/actuation 1 inh inhalation QID PRN 8.5 grams 6RF shortness of breath or wheezing J45.909 - Unspecified asthma, uncomplicated fluticasone furoate-vilanterol 200-25 mcg/dose (Breo Ellipta) 1 inh inhalation DAILY 1 inhaler 6RF Coding Level of Care Code Est Pt Level 4 (99724) Diagnoses Asthma J45.909 Environmental allergies Z91.09
== END 2024-09-03 14:23 | disposition home or self-care (01) ==
LOC: HO.HPS 14:01
PROVIDERS: PCP Internal Medicine; Visit Provider Internal Medicine Pulmonary Disease
DX: J45.909 Unspecified asthma, uncomplicated (principal); Z91.09 Other allergy status, other than to drugs and biological substances
CPT/HCPCS: 99214

== ENCOUNTER → 2024-09-03 13:55 | Outpatient (BNVA) | payer OTHER, SELFPAY | PROVIDERS: PCP Internal Medicine; Visit Provider Internal Medicine Pulmonary Disease | DX: J45.909 Unspecified asthma, uncomplicated (principal); Z91.09 Other allergy status, other than to drugs and biological substances | CPT/HCPCS: 99212 ==

== ENCOUNTER 2024-10-09 10:21 | Outpatient (AMB) | payer OTHER, SELFPAY ==
--- NOTE | 2024-10-09 10:31 | A.OFFVIS_ITS ---
Vital Signs 10/09/24 10:42 Height 5 ft 9 in Weight 260 lb BMI 38.4 BP 118/76 Blood Pressure Location Rt brachial Position Sitting Pulse 76 Pulse Source Pulse Oximeter Pulse Oximetry (%) 95 Oxygen Delivery Method Room Air Intake Visit Reasons: 1 YR FUV. IBS GERD, 29 M. Intake Note: Est pt for mgmt of IBS + GERD. LEONEL 11/2023. CC; Pt denies any GI sx or concerns at this time and confirms that his Rx are working well for him. Pt is not taking dicyclomine as previously listed and was not familiar with the medication when asked. Application Development Team Lead Required: Yes Application Development Team Lead Services: Application Development Team Lead Present Application Development Team Lead Name: [facility] Miesha Lai [id number] Information Interpreted: clinical only Accompanied by: Family/Other Allergies almond (ALMOND) Allergy (Mild, Verified 10/09/24 10:32) RASH No Known Drug Allergies Allergy (Unknown, Verified 10/09/24 10:32) none HPI HPI 1 YR FUV. IBS GERD, 29 M.: Details: Assessment & Plan (1) GERD (gastroesophageal reflux disease): Code(s): K21.9 - Gastro-esophageal reflux disease without esophagitis Category: Medical Plan [facility] #[id number] He is here today with a female family member who is quiet He continues to do well. He continues on his pantoprazole twice a day and his dicyclomine with good control of his GI conditions. Next appt discuss his first colonoscopy as he will be 44 ROV 6 mos. Medications: Refilled dicyclomine 10 mg PO TID 90 caps 6RF R10.33 - Periumbilical pain, R19.8 - Other specified symptoms and signs involving the digestive system and abdomen pantoprazole 40 mg PO BID 60 tabs 6RF K21.9 - Gastro-esophageal reflux disease without esophagitis Laboratory Tests 07/16/24 08:11 WBC 8.6 Hgb 12.4 L Hct 39.6 L MCV 85.3 MCH 26.7 L Plt Count 293 D Estimated GFR > 60 Total Bilirubin 0.4 AST 22 ALT 27 Alkaline Phosphatase 112 25-OH Vitamin D Total 19.0 L TODAY'S VISIT [facility] Live He is agreeable to having a colonoscopy. This will be his first colonoscopy. There is no FHX of crc or polyps. He continues on his pantoprazole twice a day and he has not needed the bentyl. However, he says he is having trouble getting the pantoprazole from his pharmacy. He is educated to call our office as many things can happen from computer transmission errors, to drug shortage is to prior approval that need to be done. However I do not know that he has a problem unless he calls as FM the pharmacies did not notify us routinely any more. His asthma is well controlled and he denies any cardiac problems. There are no prior problems with anesthesia or sedation. There are no infectious disease from. There is no FHX of crc or polyps. ROV 6 months PFS Medical History Physical exam Right knee pain Breast pain, right Breast pain, left Numbness of right hand Skin disorder Borborygmus Periumbilical abdominal pain Right elbow pain Right shoulder pain Body aches Cough Upper respiratory symptom Nausea COVID-19 Mild asthma Neck pain Left shoulder pain Soft tissue injury of left shoulder Soft tissue injury of right shoulder Moderate asthma Impaired glucose tolerance Essential hypertension Asthma Surgical History History of inguinal hernia repair Family History Father Diabetes Mother Hypothyroid Maternal Aunt Skin cancer Sister No problems noted. 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 Current occupational exposures/hazards: No Cognitive needs: No Hearing needs: No Vision needs: Yes Review of Systems Const Denies fatigue, Denies fever(s), Denies night sweats, Denies poor appetite and Denies weight loss ENT Reports Normal hearing present, Denies dental pain, Denies dysphagia, Denies hearing loss, Denies mouth pain, Denies odynophagia, Denies throat swelling, Denies tongue swelling and Reports other (Dentition adequate) Card Reports no additional complaints Resp Reports no additional complaints GI Details: Denies abdominal pain, Denies melena, Denies bloating, Denies hematochezia, Denies constipation, Denies GI cramping, Denies dysphagia, Denies excessive flatus, Denies early satiety, Reports heartburn, Denies diarrhea, Denies nausea, Denies odynophagia, Denies vomiting and Denies hematemesis Skin/Breast Denies pruritus, Denies lesions, Denies rash and Denies jaundice Neuro Reports Normal hearing present and Denies Abnormal speech present Endo Denies fatigue Aller/Immun Denies throat swelling and Denies tongue swelling Physical Exam Vital Signs: Last Vital Signs Pulse 76 10/09/24 10:42 BP 118/76 10/09/24 10:42 Pulse Ox 95 10/09/24 10:42 Oxygen Delivery Method Room Air 10/09/24 10:42 BMI result Body Mass Index 38.4 Const General: cooperative, no acute distress, well developed and well groomed Nutritional Appearance: well nourished and obese Orientation/consciousness: oriented to person, oriented to place and oriented to time Limitations: language barrier HEENT Head: Yes normocephalic and Yes atraumatic Eyes General: appearance normal, both eyes and all related structures Pupils: Equal, round and reactive pupils present Neck Neck: Yes normal visual inspection and Yes no lymphadenopathy Thyroid: Thyroid normal Resp Effort & Inspection: normal respiratory effort and able to speak in complete sentences Auscultation: clear to auscultation bilaterally Cardio Rate: regular rate Rhythm: regular rhythm Heart sounds: Normal, physiologic split S2 sound present Peripheral pulses: radial pulses present and posterior tibial pulses present GI Inspection: No distended, No Abdominal panniculus present and Yes obesity Palpation (GI): Soft to palpation, nontender, no guarding, not rigid and No hepatosplenomegaly present Percussion: Yes normal to percussion Auscultation: normal bowel sounds Rectal Exam - Male: Yes deferred Skin General skin exam: no rashes or lesions noted, turgor normal, skin not dry, no jaundice, No spider nevi and no striae Rashes: no rashes Nails: normal Neuro General: oriented to person, oriented to place and oriented to time Cranial nerves: Yes Equal, round and reactive pupils present and Yes Normal hearing present Speech: No Abnormal speech present Extrem General: Yes normal to inspection, No clubbing, No cyanosis and No edema Psych Appearance: grossly normal and well kempt Mental Status: mental status grossly normal Speech and movement: Normal speech and movement present Affect: normal affect Attitude: cooperative Thought process: Normal thought process present and not confabulating Thought content: Normal thought content present Insight: Fair insight present (Psych) Judgement: Fair judgement present (Psych) Assessment & Plan Assessment & Plan (1) GERD (gastroesophageal reflux disease): Code(s): K21.9 - Gastro-esophageal reflux disease without esophagitis Category: Medical (2) Pre-op examination: Code(s): Z01.818 - Encounter for other preprocedural examination Category: Medical Plan [facility] #[facility] Live He is agreeable to having a colonoscopy. This will be his first colonoscopy. There is no FHX of crc or polyps. He continues on his pantoprazole twice a day and he has not needed the bentyl. However, he says he is having trouble getting the pantoprazole from his pharmacy. He is educated to call our office as many things can happen from computer transmission errors, to drug shortage is to prior approval that need to be done. However I do not know that he has a problem unless he calls as FM the pharmacies did not notify us routinely any more. His asthma is well controlled and he denies any cardiac problems. There are no prior problems with anesthesia or sedation. There are no infectious disease from. There is no FHX of crc or polyps. ROV 6 months Orders: Orders Colonoscopy - GI Use Only Today K21.9 - Gastro-esophageal reflux disease without esophagitis Medications: New sodium,potassium,mag sulfates 17.5-3.13-1.6 gram (Suprep Bowel Prep Kit) 480 mL orally; FOR COLONOSCOPY PREP 354 mL 0RF Refilled pantoprazole 40 mg PO BID 60 tabs 6RF K21.9 - Gastro-esophageal reflux disease without esophagitis Coding Level of Care Code Est Pt Level 4 (42083) Diagnoses GERD (gastroesophageal reflux disease) K21.9 Pre-op examination Z01.818
[2024-10-09 10:42] VITALS: BP 118/76; PULSE 76; O2SAT 95; BMI 38.4
== END 2024-10-09 11:22 | disposition home or self-care (01) ==
LOC: HO.HGI 10:22
PROVIDERS: PCP Internal Medicine; Visit Provider Nurse Practitioner
DX: K21.9 Gastro-esophageal reflux disease without esophagitis (principal)
CPT/HCPCS: 99213

== ENCOUNTER → 2024-10-09 10:21 | Outpatient (BNVA) | payer OTHER, SELFPAY | PROVIDERS: PCP Internal Medicine; Visit Provider Nurse Practitioner | DX: Z01.818 Encounter for other preprocedural examination (principal); K21.9 Gastro-esophageal reflux disease without esophagitis | CPT/HCPCS: 99212 ==

== ENCOUNTER 2025-02-25 10:34 | Outpatient (AMB) | payer OTHER, SELFPAY ==
--- NOTE | 2025-02-25 10:48 | MHC.PC.OV ---
Vital Signs 02/25/25 10:49 Height 5 ft 9 in Weight 263 lb 4 oz BMI 38.9 BP 134/82 Blood Pressure Location Lt brachial Position Sitting Pulse 83 Pulse Source Pulse Oximeter Temp 97.0 F Temp Source Temporal Artery Scan Pulse Oximetry (%) 96 Oxygen Delivery Method Room Air Intake Visit Reasons: depression Energy Director Required: No Accompanied by: Self / Same As Patient Allergies almond (ALMOND) Allergy (Mild, Verified 02/25/25 10:54) RASH No Known Drug Allergies Allergy (Unknown, Verified 02/25/25 10:54) none Medication List - Last Reconciled 02/25/25 by Shannon Chowdhury MD acetaminophen 500 - 1,000 mg (1 - 2 x 500 mg) PO Q6H PRN albuterol sulfate 90 mcg/actuation 1 inh inhalation QID PRN bupropion HCl XL 150 mg PO QAM 90 days cetirizine 10 mg PO DAILY 90 days cholecalciferol (vitamin D3) 25 mcg PO DAILY 90 days cyclobenzaprine 10 mg PO BEDTIME doxepin 10 mg PO BEDTIME 90 days fluticasone furoate-vilanterol 200-25 mcg/dose (Breo Ellipta) 1 inh inhalation DAILY hydrocortisone valerate 0.2% 1 appl topical BID 2 weeks lidocaine 5% 1 patch topical DAILY montelukast 10 mg PO BEDTIME naproxen 500 mg PO BID olopatadine 0.2% (Pataday Once Daily Relief) 1 drp ophthalmic (eye) QAM pantoprazole 40 mg PO BID sodium,potassium,mag sulfates 17.5-3.13-1.6 gram (Suprep Bowel Prep Kit) 480 mL orally; FOR COLONOSCOPY PREP Tobacco use date assessed: 02/25/25 Dental Screening Dental Screen Date: 02/25/25 Did you have a dental visit in the last 12 months?: No Did you have a dental problem in the last 6 months where you did not have access to dental care?: No Was dental information given to patient?: Patient has dentist HPI HPI Comments History of Present Illness Details The patient is a 44-year-old male presenting for follow-up on his depression, GERD, low vitamin-D and impaired glucose tolerance. He is also class 2 obese with a BMI of 38.9 and was advised to do diet and exercise. Also has some mild anemia and denies any active bleeding. The patient reports having a lot of acidity. He has had difficulty obtaining pantoprazole from the pharmacy on [facility], despite the prescription being sent multiple times, most recently on February 16. The patient's medication regimen includes Breo for asthma, and he reports having approximately 8 inhalers at home. For allergies, he uses doxepin and montelukast. He also takes Flexeril as needed at night for muscle spasms, a vitamin D supplement, naproxen, and has a prescription for bupropion. For health maintenance, the patient has not yet received this season's flu vaccine. [facility] Medical History (Updated 02/25/25 @ 12:43 by Shannon Chowdhury MD) Physical exam Right knee pain Breast pain, right Breast pain, left Numbness of right hand Skin disorder Borborygmus Periumbilical abdominal pain Right elbow pain Right shoulder pain Body aches Cough Upper respiratory symptom Nausea COVID-19 Mild asthma Neck pain Left shoulder pain Soft tissue injury of left shoulder Soft tissue injury of right shoulder Moderate asthma Impaired glucose tolerance Essential hypertension Asthma Surgical History History of inguinal hernia repair Family History Father Diabetes Mother Hypothyroid Maternal Aunt Skin cancer Sister No problems noted. Social History Housing: House Alcohol intake: never Patient Tobacco Use Status: Never used Tobacco e-Cigarette/Vaping Use: Never Used Second Hand Smoke Exposure: No service: No Current occupational status: employed Current occupation: work in a [employer] Current occupational exposures/hazards: No Cognitive needs: No Hearing needs: No Vision needs: Yes Questionnaire PHQ-9 Over the last 2 weeks, how often have you been bothered by any of the following problems? 1. Little interest or pleasure in doing things: several days 2. Feeling down, depressed, or hopeless: several days 3. Trouble falling or staying asleep, or sleeping too much: more than half the days 4. Feeling tired or having little energy: more than half the days 5. Poor appetite or overeating: several days 6. Feeling bad about yourself - or that you are a failure or have let yourself or your family down: not at all 7. Trouble concentrating on things, such as reading the newspaper or watching television: not at all 8. Moving or speaking so slowly that other people could have noticed. Or the opposite - being so fidgety or restless that you have been moving around a lot more than usual: not at all 9. Thoughts that you would be better off or of hurting yourself in some way: not at all Total score: 7 Depression Screening Interpretation: Positive Depression Screening Follow-up: Existing condition and Follow-up Visit Requested Depression Screening Done: Yes 05682 - PHQ-9 Billing: Yes Source: Developed by Drs. Naif Torres, Jesenia Grant, Manoj Ledbetter and colleagues, with an educational danitza from [employer]. Thrive Questionnaire Date Thrive assessed: 08/20/24 I am a: Patient What is your living situation today?: I have a steady place to live Within the past 12 months, did the food you bought not last and you didn't have the money to get more?: Sometimes True Within the past 12 months, did you worry whether your food would run out before you got money to buy more?: Sometimes True Do you have trouble paying for medicines?: Yes Do you have trouble getting transportation to medical appointments?: No Do you have trouble paying your heating and electricity bill?: Yes Do you have trouble taking care of your child, family member or friend?: No Do you have trouble with day-to-day activities such as bathing, preparing meals, shopping, managing finances, etc.?: No Are you currently unemployed and looking for a job?: No Are you interested in more education?: No Please select the resources that you would like help with: Food Currently or been in a relationship where the following occur: No concerns reported THRIVE Score: 3 AUDIT C Alcohol Use Questionnaire (AUDIT-C) 1. How often do you have a drink containing alcohol?: Never 3. How often do you have six or more drinks on one occasion?: Never Total Score: 0 Score Reviewed/Action Taken: No PRESTON-7 AMB Questionnaire PRESTON-7 Date PRESTON - 7 assessed: 07/14/24 Feeling nervous, anxious, or on edge: 1 = Several days Not being able to stop or control worryin = Several days Worrying too much about different things: 1 = Several days Trouble relaxin = Several days Being so restless that it is hard to sit still: 1 = Several days Becoming easily annoyed or irritable: 0 = Not at all Feeling afraid as if something awful might happen: 1 = Several days Total PRESTON-7 score (0-4 normal; 5-9 mild; 10-14 moderate; 15-21 severe): 6 Source: Developed by Drs. Naif Torres, Jesenia Grant, Manoj Ledbetter and colleagues, with an educational danitza from [employer]. PRESTON-7 Assessment Billing PRESTON-7 Assessment Tool: PRESTON-7 Assessment 91174 Review of Systems Const All systems reviewed & are unremarkable except as noted in HPI and below Card Denies chest pain at rest, Denies chest pain with activity, Denies edema, Denies irregular heart rhythm, Denies claudication, Denies dyspnea, Denies dyspnea on exertion, Denies orthopnea, Denies paroxysmal nocturnal dyspnea and Denies slow heart rate Resp Denies cough, Denies dyspnea and Denies dyspnea on exertion GI Denies abdominal pain, Denies change in bowel habits, Denies excessive flatus, Denies nausea and Denies vomiting Physical exam (Primary Care) Vital Signs: Last Vital Signs Temp 97.0 F 02/25/25 10:49 Pulse 83 02/25/25 10:49 BP 134/82 02/25/25 10:49 Pulse Ox 96 02/25/25 10:49 Oxygen Delivery Method Room Air 02/25/25 10:49 BMI result Body Mass Index 38.9 BMI Assessment/Plan discussion: High BMI High, discussed plan: lifestyle, weight reduction, dietary and physical activity Tobacco/Smoking Status: Tobacco use Status Tobacco use date assessed 02/25/25 02/25/25 10:52 Patient Tobacco Use Status Never used Tobacco 02/25/25 10:52 e-Cigarette/Vaping Use Never Used 02/25/25 10:52 PHQ-9: PHQ-9 Score PHQ-9: Total score 7 02/25/25 11:12 Depression Screening Interpretation: Positive Depression Screening Follow-up: Existing condition and Follow-up Visit Requested Thrive Assessment: Date of Thrive Assessment Date Thrive assessed 08/20/24 02/25/25 10:52 Currently or been in a relationship where the following occur: No concerns reported Resp Effort & Inspection: normal respiratory effort Auscultation: clear to auscultation bilaterally Cardio Jugular venous distension: no JVD Rate: regular rate Rhythm: regular rhythm Heart sounds: S1 normal heart sound present and S2 normal heart sound present Extrem General: Yes full ROM Office Procedures Flu Questionnaire Does the patient have a severe egg allergy?: No Does the patient have severe life threatening allergies?: No Does the patient have a fever or illness today?: No Has the patient ever had Guillain-[employer] Syndrome?: No Has the patient ever had any past reaction to a flu shot?: No Immunizations Fluarix [id number] (PF) 45 mcg (15 mcg x 3)/0.5 mL IM syringe Performing Provider: Shannon Chowdhury MD [facility] [place] Administered by: ZI Carbajal on 02/25/25 11:14 Dose Route Admin Location Dispensed Lot Number Expiration Date [facility] Vacuum Tank Tender 0.5 mL IM Right Deltoid 0.5 mL [id number] 10/13/25 [id number] [place] VIS Given Date VIS Provided VIS Publication Date 02/25/25 Single Vaccine 24 Eligibility Eligibility Date Funding Source Not [facility] Eligible 02/25/25 Private Coding Level of Care Code Est Pt Level 4 (66644) Complex EM visit Add On G2211 Diagnoses Mild recurrent major depression F33.0 Impaired glucose tolerance R73.02 Class 2 obesity with body mass index (BMI) of 38.0 to 38.9 in adult E66.9; Z68.38 GERD (gastroesophageal reflux disease) K21.9 Hypovitaminosis D E55.9 Anemia D64.9 Additional Codes PRESTON-7 Assessment Billing - PRESTON-7 Assessment Tool: PRESTON-7 Assessment 98325 ([id number]) PHQ-9 - 48605 - PHQ-9 Billing: Yes ([id number]) Time Spent (min) 23 Assessment & Plan Assessment & Plan (1) Mild recurrent major depression: Code(s): F33.0 - Major depressive disorder, recurrent, mild Category: Medical (2) Impaired glucose tolerance: Code(s): R73.02 - Impaired glucose tolerance (oral) Category: Medical (3) Class 2 obesity with body mass index (BMI) of 38.0 to 38.9 in adult: Code(s): E66.9 - Obesity, unspecified; Z68.38 - Body mass index [BMI] 38.0-38.9, adult Category: Medical (4) GERD (gastroesophageal reflux disease): Code(s): K21.9 - Gastro-esophageal reflux disease without esophagitis Category: Medical (5) Hypovitaminosis D: Code(s): E55.9 - Vitamin D deficiency, unspecified Category: Medical (6) Anemia: Code(s): D64.9 - Anemia, unspecified Category: Medical Plan Plan 1. Gastroesophageal Reflux Disease The patient reports significant acidity and has been unable to fill his pantoprazole prescription. Omeprazole will be prescribed as an alternative. 2. Asthma The patient reports using Breo for asthma. Prescriptions will be refilled. 3. Allergic Rhinitis The patient uses doxepin and montelukast for allergies. Prescriptions for these medications will be sent. 4. Hypovitaminosis D Continue vitamin-D supplements. 5. Anemia Repeat hemoglobin and hematocrit. 6. Impaired glucose tolerance Repeat fasting blood glucose. Orders: Orders Lipid Panel Today E78.5 - Hyperlipidemia, unspecified Comprehensive [place]. Panel Fast Today R73.02 - Impaired glucose tolerance (oral) Vitamin D 25-OH Total Today E55.9 - Vitamin D deficiency, unspecified Influenza [id number] Immunization Today Z23 - Encounter for immunization Medications: New omeprazole 20 mg PO DAILY 90 caps 1RF 90 days Refilled bupropion HCl XL 150 mg PO QAM 90 tabs 1RF 90 days F33.0 - Major depressive disorder, recurrent, mild cyclobenzaprine 10 mg PO BEDTIME 14 tabs 0RF R07.89 - Other chest pain hydrocortisone valerate 0.2% 1 appl topical BID 45 grams 0RF 2 weeks montelukast 10 mg PO BEDTIME 90 tabs 3RF cetirizine 10 mg PO DAILY 90 tabs 1RF 90 days cholecalciferol (vitamin D3) 25 mcg PO DAILY 90 caps 1RF 90 days naproxen 500 mg PO BID 30 tabs 0RF R07.89 - Other chest pain
[2025-02-25 10:49] VITALS: BP 134/82; PULSE 83; TEMP 36.1; O2SAT 96; BMI 38.9
== END 2025-02-25 12:14 | disposition home or self-care (01) ==
LOC: HO.HMCH 10:35
PROVIDERS: PCP Internal Medicine; Visit Provider Internal Medicine
DX: F33.0 Major depressive disorder, recurrent, mild (principal); R73.02 Impaired glucose tolerance (oral); E66.9 Obesity, unspecified; Z68.38 Body mass index [BMI] 38.0-38.9, adult; K21.9 Gastro-esophageal reflux disease without esophagitis; E55.9 Vitamin D deficiency, unspecified; D64.9 Anemia, unspecified; Z23 Encounter for immunization

== ENCOUNTER → 2025-02-25 10:34 | Outpatient (BNVA) | payer OTHER, SELFPAY | PROVIDERS: PCP Internal Medicine; Visit Provider Internal Medicine | DX: F33.0 Major depressive disorder, recurrent, mild (principal); D64.9 Anemia, unspecified; R73.02 Impaired glucose tolerance (oral); E66.9 Obesity, unspecified; K21.9 Gastro-esophageal reflux disease without esophagitis; E55.9 Vitamin D deficiency, unspecified; E78.5 Hyperlipidemia, unspecified; R07.89 Other chest pain; Z23 Encounter for immunization; Z68.38 Body mass index [BMI] 38.0-38.9, adult | CPT/HCPCS: 90471; 90656; 96127; 99212 ==